=== PATIENT | female | born 1975 | race Caucasian/White ===

== ENCOUNTER 2023-01-13 08:49 | Outpatient (AMB) | payer OTHER, SELFPAY ==
--- NOTE | 2023-01-13 08:50 | MHC.OFFVIS ---
Intake Vital Signs 01/13/23 09:00 Height 5 ft 10 in Weight 287 lb 4 oz BMI 41.2 BP 142/70 H Blood Pressure Location Rt brachial Position Sitting Pulse 72 Pulse Source Pulse Oximeter Pulse Oximetry (%) 98 Oxygen Delivery Method Room Air Intake Visit Reasons: Chronic inflamatory pain/confirmed Intake Note: Pain today 10/17 Director Of Perioperative Services Required: No Accompanied by: Spouse Allergies zinc Allergy (Severe, Verified 01/13/23 08:57) Anaphylaxis latex [LATEX] Allergy (Mild, Verified 01/13/23 08:57) RASH amoxicillin [Augmentin] Allergy (Unknown, Verified 01/13/23 08:57) Unknown clavulanic acid [Augmentin] Allergy (Unknown, Verified 01/13/23 08:57) Unknown clindamycin [CLINDAMYCIN] Adverse Reaction (Severe, Verified 01/13/23 08:57) SEVERE VOMITING clarithromycin [From BIAXIN] Adverse Reaction (Mild, Verified 01/13/23 08:57) VOMITING Adhesive Tape Allergy (Unknown, Uncoded 01/13/23 08:57) Unknown Latex Gloves Allergy (Unknown, Uncoded 01/13/23 08:57) Unknown From AUGMENTIN Adverse Reaction (Intermediate, Uncoded 10/25/19 17:07) VOMITING From Augmentin Adverse Reaction (Intermediate, Uncoded 10/25/19 17:07) VOMITING HPI Chronic inflamatory pain/confirmed HPI Details Patient is a 47 years old female with complex medical history of chronic inflammatory demyelinating polyneuropathy (CIDP)and diabetic neuropathy, necrobiosis lipoidica diabeticorum, chronic pain syndrome, fibromyalgia, morbid obesity, ULISSES, degenerative joint disease of knee and left shoulders, status post recent left knee TKA, presents today for evaluation of chronic low back pain and bilateral foot neuropathy. Patient was diagnosed with CIDP at age 21 and was treated with plasmapharesis and ongoing IVIG infusions. In 2020 she developed right foot drop. Patient reports she underwent neurosurgical evaluation by Dr. Li in 2021 and was deemed non-surgical candidate. She was seen at [facility] yesterday and received left shoulder cortisone injection. She regularly sees Quality Control Industrial Engineer for diabetic neuropathy and foot care. Reports previous trigger point injections in 2021 were not helpful. Denies recent falls, injury or trauma. Back pain is axial without radiation to her lower extremities but does have discogenic components with bending forward or lifting, prolonged sitting. She lives a sedentary lifestyle due to limitations of walking capacity and overall mobility due to her conditions and chronic pain. Ambulates with slow, antalgic and ataxic gait. Pain negatively affects her daily activities, functioning, sleep, mood, social interactions and quality of life. Reports disrupted sleep and easy fatigability due to chronic widespread pain. Denies any fever, weight loss, abdominal or groin pain, bladder or bowel dysfunction or saddle anesthesia. Location Whole body pain, low back pain, feet neuropathy Duration Chronic pain for >25 years Characteristics of symptom or complaint Aching, sharp, shooting, tingling, numbness, pins and needles, stabbing Aggravating or associated factors Movement, cold weather changes, ice pack-sharp pain Relieving factors Rest, sitting, heat therapy, Oxycontin, gabapentin, baclofen Treatment TPI- made pain worse, chiropractic therapy, PT, walker [facility] Medical History (Updated 01/13/23 @ 15:15 by CHARITO Moreira) Polyneuropathy in diseases classified elsewhere Hidradenitis Hyperlipidemia Gout DJD (degenerative joint disease) Asthma PCOS (polycystic ovarian syndrome) ULISSES (obstructive sleep apnea) Subclinical hyperthyroidism Cranial nerve palsy Overlap syndrome Allergic rhinitis due to pollen History of 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 Varicose veins with pain Constipation Type 2 diabetes mellitus GERD (gastroesophageal reflux disease) Vitamin D deficiency Allergic rhinitis Surgical History (Updated 01/13/23 @ 09:46 by Alejandra Garcia) History of adjustable gastric banding History of appendectomy Social History Alcohol intake: never Patient Tobacco Use Status: Former Tobacco user Tobacco use type: Cigarette Substance Use Type: Caffiene Substance Use Frequency: Daily Review of Systems Const All systems reviewed & are unremarkable except as noted in HPI and below Physical Exam Vital Signs: Last Vital Signs Pulse 72 01/13/23 09:00 BP 142/70 H 01/13/23 09:00 Pulse Ox 98 01/13/23 09:00 Oxygen Delivery Method Room Air 01/13/23 09:00 BMI result Body Mass Index 41.2 General: Appears afebrile. No acute distress. Alert and oriented. Mood and affect appropriate. Follows and participates in conversation appropriately. Respiratory effort is unlabored. No cough. Able to transition from sit to stand with assistance of walker with seat. Ambulates with bilaterally normal heel strike and toe off. Back/Spine/Pelvis Other: Limited lumbar ROM due to pain and weakness. Antalgic gait with limping. Can flex forward to 60-65 degrees and extend to 5-10 degrees before experiencing lumbar pain, worse pain with flexion, bending forward and any movement. Demonstrates 4/5 strength of quadriceps bilaterally as well as flexion/dorsiflexion of bilateral feet against resistance. 2+ pedal pulses bilaterally. Seated straight leg rise with dorsiflexion negative bilaterally. +1 patellar right, not assessed on the left due to recent left TKA and absent achilles reflexes bilaterally. Mild foot drop on the right. Facet loading test positive bilaterally. Shukri sign negative bilaterally. No TTP in the SIJ or GTB areas bilaterally. Multiple TTP areas upper and lower extremities bilaterally. Cervical Spine: cervical muscular tenderness, pain with cervical ROM and No Cervical spine tenderness Thoracic/Lumbar Spine: thoracic and lumbar spine normal to inspection, No Thoracic/lumbar spine scar(s), Lasegue's sign negative, straight leg raise negative bilaterally, pain with thoraco-lumbar ROM, paraspinal muscle tenderness, thoraco-lumbar ROM limited, No thoracic spinal tenderness and lumbar spinal tenderness at L4 and at L5 Pelvis: no buttock tenderness Sacroiliac joints: bilaterally nontender Extrem Other: No soft tissue swelling, redness or warmth. No lesions or ulcerations. Dry patches throughout feet with skin discoloration bilaterally, healing scabs right lower leg and . +2 pedal pulses bilaterally. There is decreased sensation over the soles of the feet and toes bilaterally. No breaks in the skin. History of right first toe amputation. General: Yes capillary refill normal, Yes no clubbing, cyanosis or edema and Yes no calf tenderness Assessment & Plan Assessment & Plan (1) Chronic pain syndrome: Code(s): G89.4 - Chronic pain syndrome (2) Lumbosacral spondylosis: Code(s): M47.817 - Spondylosis without myelopathy or radiculopathy, lumbosacral region (3) Polyneuropathy in diseases classified elsewhere: Code(s): G63 - Polyneuropathy in diseases classified elsewhere (4) Lumbar degenerative disc disease: Code(s): M51.36 - Other intervertebral disc degeneration, lumbar region (5) Chronic painful diabetic neuropathy: Code(s): E11.40 - Type 2 diabetes mellitus with diabetic neuropathy, unspecified (6) Morbid obesity with BMI of 40.0-44.9, adult: Code(s): E66.01 - Morbid (severe) obesity due to excess calories; Z68.41 - Body mass index [BMI] 40.0-44.9, adult (7) Fibromyalgia: Code(s): M79.7 - Fibromyalgia Plan Discussed risks and benefits of different treatment options including topical 8% capsaicin application, peripheral nerve stimulation, RFA and spinal cord stimulation. Patient presents with chronic low back pain, widespread body pain, fibromyalgia, and polyneuropathy. Medical release requests sent to [facility] and [facility] for previous spine imaging, injections and neurosurgical evaluation in [address] Li. Will consider diagnostic lumbar medial branch blocks for potential Sprint PNS trial after old records and imaging review. I have informed patient that our office currently does not offer opiod prescribing program. Will try to arrange topical 8% capsaicin application for bilateral foot pain as the next step once we have confirmed availability. For fibromyalgia related symptoms, recommend to increase daily physical activity such as walking, gentle stretching exercises, and aerobic exercise as tolerated, sleep hygiene, adequate hydration, well balance diet and weight optimization, consider plant based diet or Mediterranean diet, CBT (Cognitive Behavioral Therapy) for sleep and coping with fibromyalgia by Psychotherapist. Continue gabapentin. Kelin Hannah., Consuelo Geller, Mandi Eubanks, Maame Zamora, Lazara Mayer, & ?Kelin Desai (2017). Effectiveness of Therapeutic Exercise in Fibromyalgia Syndrome: A Systematic Review and [place]-Analysis of Randomized Clinical Trials. [employer], 2017, [id number]. [email or web address] All questions and concerns have been answered and the patient agreed with the plan. Follow up as needed. Coding Level of Care Code New Pt Level 4 (07854) Diagnoses Chronic pain syndrome G89.4 Lumbosacral spondylosis M47.817 Polyneuropathy in diseases classified elsewhere G63 Lumbar degenerative disc disease M51.36 Chronic painful diabetic neuropathy E11.40 Morbid obesity with BMI of 40.0-44.9, adult E66.01; Z68.41 Fibromyalgia M79.7
[2023-01-13 09:00] VITALS: BP 142/70; PULSE 72; O2SAT 98; BMI 41.2
== END 2023-01-13 09:52 | disposition home or self-care (01) ==
PROVIDERS: PCP Internal Medicine; Referring Provider Internal Medicine; Visit Provider Nurse Practitioner Family
DX: G89.4 Chronic pain syndrome (principal); M47.817 Spondylosis without myelopathy or radiculopathy, lumbosacral region; G63 Polyneuropathy in diseases classified elsewhere; M51.36 Other intervertebral disc degeneration, lumbar region; E11.40 Type 2 diabetes mellitus with diabetic neuropathy, unspecified; E66.01 Morbid (severe) obesity due to excess calories; Z68.41 Body mass index [BMI] 40.0-44.9, adult; M79.7 Fibromyalgia
CPT/HCPCS: 99204

== ENCOUNTER → 2023-01-13 08:49 | Outpatient (BNVA) | payer OTHER, SELFPAY | PROVIDERS: PCP Internal Medicine; Referring Provider Internal Medicine; Visit Provider Nurse Practitioner Family | DX: M47.817 Spondylosis without myelopathy or radiculopathy, lumbosacral region (principal); M51.36 Other intervertebral disc degeneration, lumbar region; M79.7 Fibromyalgia; G63 Polyneuropathy in diseases classified elsewhere; G89.4 Chronic pain syndrome; E11.40 Type 2 diabetes mellitus with diabetic neuropathy, unspecified; E66.01 Morbid (severe) obesity due to excess calories; Z68.41 Body mass index [BMI] 40.0-44.9, adult | CPT/HCPCS: 99202 ==

== ENCOUNTER 2023-04-01 13:39 | Outpatient (AMB) | payer OTHER, SELFPAY ==
--- NOTE | 2023-04-01 13:41 | MHC.OFFVIS ---
Intake Vital Signs 04/01/23 13:46 Height 5 ft 10 in Weight 295 lb BMI 42.3 BP 133/66 Blood Pressure Location Lt brachial Position Sitting Pulse 77 Pulse Source Pulse Oximeter Pulse Oximetry (%) 99 Oxygen Delivery Method Room Air Intake Visit Reasons: increased back pain- confirmed Intake Note: Pain today 07/17 Milk Inspector Required: No Accompanied by: Spouse Allergies zinc Allergy (Severe, Verified 04/01/23 13:47) Anaphylaxis latex [LATEX] Allergy (Mild, Verified 04/01/23 13:47) RASH amoxicillin [Augmentin] Allergy (Unknown, Verified 04/01/23 13:47) Unknown clavulanic acid [Augmentin] Allergy (Unknown, Verified 04/01/23 13:47) Unknown clindamycin [CLINDAMYCIN] Adverse Reaction (Severe, Verified 04/01/23 13:47) SEVERE VOMITING clarithromycin [From BIAXIN] Adverse Reaction (Mild, Verified 04/01/23 13:47) VOMITING Adhesive Tape Allergy (Unknown, Uncoded 01/13/23 08:57) Unknown Latex Gloves Allergy (Unknown, Uncoded 01/13/23 08:57) Unknown From AUGMENTIN Adverse Reaction (Intermediate, Uncoded 10/25/19 17:07) VOMITING From Augmentin Adverse Reaction (Intermediate, Uncoded 10/25/19 17:07) VOMITING HPI HPI Comments History of Present Illness Details Patient presents today for follow up for chronic low back pain and SCS trial discussion. Patient reports she has reviewed previously discussed procedures and pamphlets and would like to proceed with lumbar SCS trial for a longer term pain management of chronic low back pain and diabetic neuropathy. She also suffers from debilitating chronic inflammatory demyelinating polyneuropathy. Pain affects her daily functioning, mobility, sleep, mood and quality of life. Currently takes gabapentin and Oxycontin with continued symptoms. The trialed and failed therapy has been reviewed with the patient. The risks, consequences, alternatives, and benefits of various treatment options were discussed with the patient and her spouse in great detail, including conservative management, injections and procedures. Plan to proceed with the SCS trial. We will proceed with referral for psychology clearance in anticipation of SCS trial. Denies any recent cough, cold, infection, fever, any significant changes in her medical history, medications or recent hospitalizations. Patient reports she continues to work on weight loss and has decreased soda consumption to 2-3 uses/day. She reports current fasting blood sugars are 150-170 on average. She is due for A1C recheck next week at her PCP office. Patient is also awaiting for new insulin pump. PRIOR: Patient is a 47 years old female with complex medical history of chronic inflammatory demyelinating polyneuropathy (CIDP)and diabetic neuropathy, necrobiosis lipoidica diabeticorum, chronic pain syndrome, fibromyalgia, morbid obesity, ULISSES, degenerative joint disease of knee and left shoulders, status post recent left knee TKA, presents today for evaluation of chronic low back pain and bilateral foot neuropathy. Patient was diagnosed with CIDP at age 21 and was treated with plasmapharesis and ongoing IVIG infusions. In 2020 she developed right foot drop. Patient reports she underwent neurosurgical evaluation by Dr. Li in 2021 and was deemed non-surgical candidate. She was seen at [facility] yesterday and received left shoulder cortisone injection. She regularly sees Core Driller for diabetic neuropathy and foot care. Reports previous trigger point injections in 2021 were not helpful. Denies recent falls, injury or trauma. Back pain is axial without radiation to her lower extremities but does have discogenic components with bending forward or lifting, prolonged sitting. She lives a sedentary lifestyle due to limitations of walking capacity and overall mobility due to her conditions and chronic pain. Ambulates with slow, antalgic and ataxic gait. Pain negatively affects her daily activities, functioning, sleep, mood, social interactions and quality of life. Reports disrupted sleep and easy fatigability due to chronic widespread pain. Denies any fever, weight loss, abdominal or groin pain, bladder or bowel dysfunction or saddle anesthesia. Location Whole body pain, low back pain, feet neuropathy Duration Chronic pain for >25 years Characteristics of symptom or complaint Aching, sharp, shooting, tingling, numbness, pins and needles, stabbing Aggravating or associated factors Movement, cold weather changes, ice pack-sharp pain Relieving factors Rest, sitting, heat therapy, Oxycontin, gabapentin, baclofen Treatment TPI- made pain worse, chiropractic therapy, PT, walker [facility] Medical History (Updated 01/13/23 @ 15:15 by CHARITO Moreira) Polyneuropathy in diseases classified elsewhere Hidradenitis Hyperlipidemia Gout DJD (degenerative joint disease) Asthma PCOS (polycystic ovarian syndrome) ULISSES (obstructive sleep apnea) Subclinical hyperthyroidism Cranial nerve palsy Overlap syndrome Allergic rhinitis due to pollen Varicose veins with pain Constipation Type 2 diabetes mellitus GERD (gastroesophageal reflux disease) Vitamin D deficiency Allergic rhinitis Surgical History (Updated 01/13/23 @ 09:46 by Alejandra Garcia) History of 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 History of adjustable gastric banding History of appendectomy Social History Alcohol intake: never Patient Tobacco Use Status: Former Tobacco user Tobacco use type: Cigarette Substance Use Type: Caffiene Review of Systems Const All systems reviewed & are unremarkable except as noted in HPI and below Physical Exam Vital Signs: Last Vital Signs Pulse 77 04/01/23 13:46 BP 133/66 04/01/23 13:46 Pulse Ox 99 04/01/23 13:46 Oxygen Delivery Method Room Air 04/01/23 13:46 BMI result Body Mass Index 42.3 General: Appears afebrile. No acute distress. Alert and oriented. Mood and affect appropriate. Follows and participates in conversation appropriately. Respiratory effort is unlabored. No cough. Able to transition from sit to stand with assistance of walker with seat. Ambulates with bilaterally normal heel strike and toe off. Back/Spine/Pelvis Cervical Spine: cervical muscular tenderness, pain with cervical ROM and No Cervical spine tenderness Thoracic/Lumbar Spine: thoracic and lumbar spine normal to inspection, No Thoracic/lumbar spine scar(s), Lasegue's sign negative, straight leg raise negative bilaterally, pain with thoraco-lumbar ROM, paraspinal muscle tenderness, thoraco-lumbar ROM limited, No thoracic spinal tenderness and lumbar spinal tenderness at L4 and at L5 Results Reviewed Results Reviewed: Assessment & Plan Assessment & Plan (1) Chronic painful diabetic neuropathy: Code(s): E11.40 - Type 2 diabetes mellitus with diabetic neuropathy, unspecified (2) Lumbar degenerative disc disease: Code(s): M51.36 - Other intervertebral disc degeneration, lumbar region (3) Lumbosacral spondylosis: Code(s): M47.817 - Spondylosis without myelopathy or radiculopathy, lumbosacral region (4) Chronic pain syndrome: Code(s): G89.4 - Chronic pain syndrome (5) Polyneuropathy in diseases classified elsewhere: Code(s): G63 - Polyneuropathy in diseases classified elsewhere Plan Placed referral for psychology clearance in anticipation of SCS trial. Patient and family are aware patient will receive call from provider at [facility]. Extensive discussion regarding the risks and benefits of SCS trial and implant procedures. Will proceed with Nevro HFX trial pending psychology clearance and new A1C recheck. All questions were answered to patient satisfaction. Follow up after behavioral evaluation and sooner as needed. Coding Level of Care Code Est Pt Level 3 (30782) Diagnoses Chronic painful diabetic neuropathy E11.40 Lumbar degenerative disc disease M51.36 Lumbosacral spondylosis M47.817 Chronic pain syndrome G89.4 Polyneuropathy in diseases classified elsewhere G63
[2023-04-01 13:46] VITALS: BP 133/66; PULSE 77; O2SAT 99; BMI 42.3
== END 2023-04-01 14:07 | disposition home or self-care (01) ==
PROVIDERS: PCP Internal Medicine; Visit Provider Nurse Practitioner Family
DX: E11.40 Type 2 diabetes mellitus with diabetic neuropathy, unspecified (principal); M51.36 Other intervertebral disc degeneration, lumbar region; M47.817 Spondylosis without myelopathy or radiculopathy, lumbosacral region; G89.4 Chronic pain syndrome; G63 Polyneuropathy in diseases classified elsewhere
CPT/HCPCS: 99213

== ENCOUNTER → 2023-04-01 13:39 | Outpatient (BNVA) | payer OTHER, SELFPAY | PROVIDERS: PCP Internal Medicine; Visit Provider Nurse Practitioner Family | DX: E11.40 Type 2 diabetes mellitus with diabetic neuropathy, unspecified (principal); M51.36 Other intervertebral disc degeneration, lumbar region; M47.817 Spondylosis without myelopathy or radiculopathy, lumbosacral region; G63 Polyneuropathy in diseases classified elsewhere; G89.4 Chronic pain syndrome | CPT/HCPCS: 99212 ==

== ENCOUNTER 2024-08-24 11:38 | Outpatient (AMB) | payer OTHER, SELFPAY ==
--- NOTE | 2024-08-24 11:40 | A.OFFVIS_ITS ---
Vital Signs 3 08/24/24 11:44 Height 5 ft 10 in Weight 303 lb BMI 43.5 BP 145/71 H Blood Pressure Location Lt brachial Position Sitting Pulse 75 Pulse Source Pulse Oximeter Pulse Oximetry (%) 96 Oxygen Delivery Method Room Air Intake Visit Reasons: Fu patient req/leyla 04/01/23 Intake Note: Pain today 5/10 Personal Lines Account Executive Required: No Accompanied by: Spouse Allergies zinc Allergy (Severe, Verified 08/24/24 11:44) Anaphylaxis latex (LATEX) Allergy (Mild, Verified 08/24/24 11:44) RASH amoxicillin (Augmentin) Allergy (Unknown, Verified 08/24/24 11:44) Unknown clavulanic acid (Augmentin) Allergy (Unknown, Verified 08/24/24 11:44) Unknown clindamycin (CLINDAMYCIN) Adverse Reaction (Severe, Verified 08/24/24 11:44) SEVERE VOMITING clarithromycin (From BIAXIN) Adverse Reaction (Mild, Verified 08/24/24 11:44) VOMITING Adhesive Tape Allergy (Unknown, Uncoded 01/13/23 08:57) Unknown Latex Gloves Allergy (Unknown, Uncoded 01/13/23 08:57) Unknown From AUGMENTIN Adverse Reaction (Intermediate, Uncoded 10/25/19 17:07) VOMITING From Augmentin Adverse Reaction (Intermediate, Uncoded 10/25/19 17:07) VOMITING HPI Comments Details: The patient is a 49-year-old female presenting for management of chronic low back pain and re-evaluation for spinal cord stimulator trial. The chronic low back pain has been present for over 25 years, with pain radiating to lower extremities, neck and shoulder blades and exacerbated by movements, walking, bending and twisting. Previous imaging showed mild degenerative changes in the thoracic and lumbar spine with facet arthropathy. She is scheduled to undergo CT scan of neck next week. The patient has a history of chronic inflammatory demyelinating polyneuropathy (CIDP) for which she receives intravenous immunoglobulin (IVIG) treatments every three weeks for five days via portcath through [facility]. She also has a gastric band in situ for obesity management, although her weight has been fluctuating by 10 pounds. Current BMI 43.5. The patient has undergone bilateral knee replacements, with the right knee replaced in June of this year and the left knee in November 2022. She reports no smoking or alcohol use but uses medicinal marijuana. Her diabetes mellitus management has been complicated by high A1c levels due to issues with insulin pump supplies, leading to a six-month period off the pump. The patient's A1c was last checked a couple of months ago at PCP office, and she is advised to reduce soda consumption to aid in weight loss and better glycemic control. Denies any recent cough, cold, infection, fever or any other significant changes in medical history since last office visit. PRIOR: Patient presents today for follow up for chronic low back pain and SCS trial discussion. Patient reports she has reviewed previously discussed procedures and pamphlets and would like to proceed with lumbar SCS trial for a longer term pain management of chronic low back pain and diabetic neuropathy. She also suffers from debilitating chronic inflammatory demyelinating polyneuropathy. Pain affects her daily functioning, mobility, sleep, mood and quality of life. Currently takes gabapentin and Oxycontin with continued symptoms. The trialed and failed therapy has been reviewed with the patient. The risks, consequences, alternatives, and benefits of various treatment options were discussed with the patient and her spouse in great detail, including conservative management, injections and procedures. Plan to proceed with the SCS trial. We will proceed with referral for psychology clearance in anticipation of SCS trial. Denies any recent cough, cold, infection, fever, any significant changes in her medical history, medications or recent hospitalizations. Patient reports she continues to work on weight loss and has decreased soda consumption to 2-3 uses/day. She reports current fasting blood sugars are 150- 170 on average. She is due for A1C recheck next week at her PCP office. Patient is also awaiting for new insulin pump. PRIOR: Patient is a 47 years old female with complex medical history of chronic inflammatory demyelinating polyneuropathy (CIDP)and diabetic neuropathy, necrobiosis lipoidica diabeticorum, chronic pain syndrome, fibromyalgia, morbid obesity, ULISSES, degenerative joint disease of knee and left shoulders, status post recent left knee TKA, presents today for evaluation of chronic low back pain and bilateral foot neuropathy. Patient was diagnosed with CIDP at age 21 and was treated with plasmapharesis and ongoing IVIG infusions. In 2020 she developed right foot drop. Patient reports she underwent neurosurgical evaluation by Dr. Li in 2021 and was deemed non-surgical candidate. She was seen at [facility] yesterday and received left shoulder cortisone injection. She regularly sees Custom Shop Worker for diabetic neuropathy and foot care. Reports previous trigger point injections in 2021 were not helpful. Denies recent falls, injury or trauma. Back pain is axial without radiation to her lower extremities but does have discogenic components with bending forward or lifting, prolonged sitting. She lives a sedentary lifestyle due to limitations of walking capacity and overall mobility due to her conditions and chronic pain. Ambulates with slow, antalgic and ataxic gait. Pain negatively affects her daily activities, functioning, sleep, mood, social interactions and quality of life. Reports disrupted sleep and easy fatigability due to chronic widespread pain. Denies any fever, weight loss, abdominal or groin pain, bladder or bowel dysfunction or saddle anesthesia. Location Whole body pain, low back pain, feet neuropathy Duration Chronic pain for >25 years Characteristics of symptom or complaint Aching, sharp, shooting, tingling, numbness, pins and needles, stabbing Aggravating or associated factors Movement, cold weather changes, ice pack- sharp pain Relieving factors Rest, sitting, heat therapy, Oxycontin, gabapentin, baclofen Treatment TPI- made pain worse, chiropractic therapy, PT, walker [facility] Medical History Polyneuropathy in diseases classified elsewhere Hidradenitis Hyperlipidemia Gout DJD (degenerative joint disease) Asthma PCOS (polycystic ovarian syndrome) ULISSES (obstructive sleep apnea) Subclinical hyperthyroidism Cranial nerve palsy Overlap syndrome Allergic rhinitis due to pollen Varicose veins with pain Constipation Type 2 diabetes mellitus GERD (gastroesophageal reflux disease) Vitamin D deficiency Allergic rhinitis Surgical History History of 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 History of adjustable gastric banding History of appendectomy Social History Alcohol intake: never Patient Tobacco Use Status: Former Tobacco user Tobacco use type: Cigarette Substance Use Type: Caffiene Review of Systems Const Details: - Musculoskeletal: Reports chronic low back pain radiating to legs, neck and shoulder blades, exacerbated by movement, walking, bending and twisting - Endocrine: Reports high A1c due to insulin pump issues - General: Denies smoking and alcohol use, reports use of medicinal marijuana All systems reviewed & are unremarkable except as noted in HPI and below Physical Exam Vital Signs: Last Vital Signs Pulse 75 08/24/24 11:44 BP 145/71 H 08/24/24 11:44 Pulse Ox 96 08/24/24 11:44 Oxygen Delivery Method Room Air 08/24/24 11:44 BMI result Body Mass Index 43.5 General: Appears afebrile. Alert and oriented. Mood and affect appropriate. Follows and participates in conversation appropriately. Respiratory effort is unlabored. No cough. Able to transition from sit to stand with assistance. Ambulates with slow, antalgic gait. Uses walker with ambulation. Neck Neck: Yes normal visual inspection, Yes supple, No anterior neck swelling, Yes no JVD, No prominent supraclavicular fat pad and Yes prominent dorsocervical fat pad Chest Other: Right port-a-cath in place, accessed with dressing intact, dry, no drainage. Back/Spine/Pelvis Cervical Spine: loss of normal cervical lordosis, cervical muscular tenderness, pain with cervical ROM, cervical spasm, No Cervical spine tenderness and No step off deformity Thoracic/Lumbar Spine: thoracic and lumbar spine normal to inspection, No Thoracic/lumbar spine scar(s), Lasegue's sign negative, straight leg raise negative bilaterally, pain with thoraco-lumbar ROM, paraspinal muscle tenderness, thoraco-lumbar ROM limited, No thoracic spinal tenderness and lumbar spinal tenderness at L4 and at L5 Sacroiliac joints: bilaterally tender to palpation Results Reviewed Results Reviewed: Assessment & Plan Assessment & Plan (1) Lumbar degenerative disc disease: Code(s): M51.36 - Other intervertebral disc degeneration, lumbar region Category: Medical (2) Lumbosacral spondylosis: Code(s): M47.817 - Spondylosis without myelopathy or radiculopathy, lumbosacral region Category: Medical (3) Chronic pain syndrome: Code(s): G89.4 - Chronic pain syndrome Category: Medical (4) Polyneuropathy in diseases classified elsewhere: Code(s): G63 - Polyneuropathy in diseases classified elsewhere Category: Medical (5) Morbid obesity with BMI of 40.0-44.9, adult: Code(s): E66.01 - Morbid (severe) obesity due to excess calories; Z68.41 - Body mass index [BMI] 40.0-44.9, adult Category: Medical (6) Fibromyalgia: Code(s): M79.7 - Fibromyalgia Category: Medical Plan The patient will undergo a spinal cord stimulator trial pending successful completion of a psychological evaluation through her current Psychologist and confirmation that her A1c is below 7.5. The psychological evaluation has been resubmitted to her Psychologist. We will obtain medical release for her most recent A1c levels from her primary care provider. The patient is encouraged to reduce soda consumption to aid in weight loss and better glycemic control, which may facilitate the spinal cord stimulator trial. All questions were answered to patient satisfaction. Follow up after behavioral evaluation and sooner as neede Patient was informed and verbally consented to the use of an ambient scribe for clinic note documentation during this visit. Coding Level of Care Code Est Pt Level 3 (84118) Complex EM visit Add On G2211 Diagnoses Lumbar degenerative disc disease M51.36 Lumbosacral spondylosis M47.817 Chronic pain syndrome G89.4 Polyneuropathy in diseases classified elsewhere G63 Morbid obesity with BMI of 40.0-44.9, adult E66.01; Z68.41 Fibromyalgia M79.7
[2024-08-24 11:44] VITALS: BP 145/71; PULSE 75; O2SAT 96; BMI 43.5
--- OUTSIDE RECORDS SUMMARY | 2024-08-24 12:00 | XMS_ITS | Data Portability ---
Author Organization [place] - [facility], Allergy Address [address] [place] [id number] Care Team Providers Care Sld Educational Aide Name Role Phone CONCHIS CLARKE Primary Care Provider Assessment Encounter Date Assessment Date Assessment LastModified by Organization Details LastModified Time 09/02/2023 09/02/2023 48-year-old frantz oliveira presents for reevaluation. CT scan was reviewed with patient. She should continue to follow with her title assistant regarding thyroid nodule. This does not fully explain her swallowing difficulty. She does however have a progressive neurologic issue that could be related. I have recommended a swallow study for further evaluation and to ensure there is no aspiration. Follow-up after study for review and further planning if necessary. Otologic exam is unremarkable. Audiometric testing was obtained today showing normal hearing and tympanometry bilaterally. Tinnitus is idiopathic. Masking techniques discussed. Follow-up as needed in regards to this issue. [email or web address] Not available 09/02/2023 14:17:00 Plan of Treatment Reminders Order Date Submit Date Provider Last Modified By Organization Details Last Modified Time Details Appointments None recorded. Lab None recorded. Referral None recorded. Procedures None recorded. Surgeries None recorded. Imaging [place], modified barium swallow study 2023 024 [email or web address] [facility], [address] [facility], [place], [address], 10:40:53 Medication Orders None recorded. Patient TargetsNo targets recorded. Patient InstructionsNo instructions recorded. Reason for Referral None Reported. Results Created Date Observation Date Name Description Value Unit Range Abnormal Flag Note LastModifiedBy Organization Detail LastModifiedTime 08/10/19 24 08/09/2023 CT, neck, soft tissu e, w/ contr ast No observ ation record ed. [email or web address] [facility] [address] [facility] [address], [place], [address], 08/17/2023 12:59:37 09/05/19 audio gram No observ ation record ed. [email or web address] Not Available 08/08 09:33:37 12/06/19 24 12/06/2023 chest xr [facility] Diagno stic Imagin g Depart [address] [address] ____ Alivia t: DOMI DURAN /Age/S ex: 1975 - 48 - F Unit#: [id number] Locati on/Sta tus: JERMAIN T/PRE CLI Accoun t#: [id number] Mnvaleria ic/Ord ering Site: [facility] PDI Orderi ng Physic mariama: DAISY KASPER PA-Andreina ___ CR Barium Swallo w W Video - - 0219 Report Status :Mary d CLINIC AL HISTOR Y: DYSPHA REVA. STUDY: Modifi ed barium swallo w study COMPAR TOMMY: No releva nt priors HISTOR Y: Alivia mcintosh is a 48-yea r-old female with histor y of dyspha reva TECHNI QUE: Multip le sequen tial fluoro scopic images of the latera l neck were obtain ed for a swallo wing functi on study. Barium enhanc ed consis tencie s of puddin g, thin liquid , semi-s olid, and a 13 mm barium tablet were utiliz ed for evalua tion. Examin ation was perfor med with the speech therap ist kenan RESENDEZ GS: There is questi on of very small amount of flash laryng eal penetr ation withou t rachael aspira tion on straw sips of thin barium . There was no eviden ce for penetr ation or aspira tion of any of the other variou s consis tencie s. 13mm barium tablet was swallo wed withou t diffic ulty with prompt passag e of pill from the esopha geoffrey into the stomac h. DAP: 0.59 Gycm 2 Exam perfor med and dictat ed by: ADIS Cordova physic mariama: Baldo Person MD IMPRES EBONY: Questi on a very small amount of flash laryng eal penetr ation withou t rachael aspira tion on straw sips of thin barium , otherw ise normal swallo wing functi on. Please refer to the susan lopez speech pathol ogist report for furthe r detail s as clinic randa lopez. Dictat ing Physic mariama: Brittney PERSON MD Electr onical ly Signed by: Brittney PERSON MD Dic Date/T sania: 1246 Sign date/T sania: [address] ([facility]) [address] [place], [address], 12/06/2023 14:58:16 12/06/19 24 12/06/2023 [place], modif ied kristina m sindy ow study No observ ation record ed. [address] Diagnosit Imaging Dept [address] [place], [address], 12/06/2023 14:58:19 Result Notes None recorded. Problems Name Problem SNOMED Code Status Onset Date Resolution Date Notes Provider Name and Address Organization Details Recorded Time Chronic tonsillit is 34429334 Active 2014 Tonsillit is, chronic; Note: Date Diagnosed : 06/19/2014 12:59 PM (474.00) Not Available [facility] 4 02:19:58 Chronic disease of tonsils AND/OR adenoids 50060592 Active 2014 Tonsillit h, NOS; Note: Date Diagnosed : 06/19/2014 12:59 PM (474.8) Not Available [facility] 4 02:20:07 Respirato ry finding 191575077 Active 2021 Feeling of foreign body in throat; Note: Date Diagnosed : 07/01/2021 2:58 PM (R09.89) Not Available [facility] 4 02:20:04 Cardiovas cular finding 210459939 Active 2021 Feeling of foreign body in throat; Note: Date Diagnosed : 07/01/2021 2:58 PM (R09.89) Not Available [facility] 4 02:20:04 Oropharyn geal dysphagia 58638159 Active 2021 Dysphagia , oropharyn geal phase; Note: Date Diagnosed : 07/01/2021 2:58 PM (R13.12) Not Available [facility] 4 02:19:15 Stomatiti s 28907278 Active 2021 Oral thrush; Note: Date Diagnosed : 07/01/2021 2:58 PM (B37.0) Not Available [facility] 4 02:20:11 Candidias is of mouth 76226870 Active 2021 Oral thrush; Note: Date Diagnosed : 07/01/2021 2:58 PM (B37.0) Not Available [facility] 4 02:20:11 Bilateral earache 396966697 Active 2023 Otalgia, bilateral ; Note: Date Diagnosed : 05/11/2023 5:01 PM (H92.03) Not Available [facility] 4 02:20:10 Abnormal auditory perceptio n 08913845 Active 2023 Shanita bauer [place] - [facility] 4 13:44:37 Bilateral tinnitus 85227549801 02 Active 2023 KORY ARNOLD PA-C [address] [facility] [address], [address], [place], [address] , [facility] - [facility] 4 14:17:04 Dysphagia 01631936 Active 2023 KORY ARNOLD PA-C [address] [facility] [address], [place], [address] , [facility] 4 14:17:09 Problem Notes None recorded. Procedures Surgical History Date Name Laterality Status Provider Name and Address Organization Details Recorded Time 09/02/2023 Comp Audio with Tymps - 14179 & 31522 completed Shanita Tobin [place] - [facility] 09/02/2023 13:44:22 Imaging Results None recorded. Procedure Notes None recorded. Medical Equipment None Reported. Allergies Allergen ID Allergen Name Allergen Category Reaction Reaction Severity Criticality Documentation Date Start Date Code Code System Note Provider Name and Address Organization Details Recorded Time 28712 amoxicill in / clavulana te medicatio n other Not available Not available 06/21/2023 41174 RxNorm React ion: unkno wn, unspe cifie d;; Not Available [facility] 4 00:53:04 15214 clindamyc in hydrochlo ride medicatio n other Not available Not available 06/21/2023 52819 RxNorm React ion: unkno wn, unspe cifie d;; Not Available [facility] 4 00:53:08 87112 clarithro mycin medicatio n other Not available Not available 06/21/2023 03471 RxNorm React ion: unkno wn, unspe cifie d;; Not Available [facility] 4 00:53:12 Medications Name Sig Start Date Stop Date Status Note LastModified by Organization Details LastModified Time quetiapin e 25 mg tablet TAKE 1 TABLET BY MOUTH TWICE DAILY NEEDED active Not Available Not Available No t Available cyclobenz aprine 10 mg tablet TAKE 1 TABLET BY MOUTH THREE TIMES A DAY FOR 30 DAYS 09/01 completed Not Available Not Available Not Available ziprasido ne 80 mg capsule 07/01 completed Medicati on ID: [id number] Du ration Value: 30 Brand Name: ziprasid one HCl Send Method: E-Prescr ibed Sub s Allowed: subs OK Speci al Instruct ion: TK 1 C PO Q NIGHT WITH FOOD. TAKE WITH GEODON 40 MG CAPSULE Medicati onGeneri cName: ziprasid one HCl Not Available Not Available Not Available clotrimaz ole 10 mg bree 1 bree 07/01 completed Medicati on ID: [id number] D uration Value: 7 Prescri bed By Name: Nathen oviedo M.D. Bra nd Name: clotrima zole Sen d Method: E-Prescr ibed Sub s Allowed: subs OK Medic ationGen ericName : clotrima zole Not Available Not Available Not Available buspirone 5 mg tablet 05/10 completed Medicati on ID: [id number] B rand Name: buspiron e Send Method: E-Prescr ibed Sub s Allowed: subs OK Medic ationGen ericName : buspiron e Not Available Not Available Not Available clonidine HCl 0.1 mg tablet 05/10 completed Medicati on ID: [id number] B rand Name: clonidin e HCl Send Method: E-Prescr ibed Sub s Allowed: subs OK Medic ationGen ericName : clonidin e HCl Not Available Not Available Not Available lamotrigi ne 200 mg tablet TAKE 1 TABLET BY MOUTH TWICE DAILY active Not Available Not Available No t Available quetiapin e 300 mg tablet TAKE 1 TABLET BY MOUTH AT BEDTIME active Not Available Not Available No t Available trazodone 50 mg tablet 09/01 completed Medicati on ID: [id number] B rand Name: trazodon e Send Method: E-Prescr ibed Sub s Allowed: subs OK Medic ationGen ericName : trazodon e Medica tion ID: [id number] B rand Name: trazodon e Send Method: E-Prescr ibed Sub s Allowed: subs OK Medic ationGen ericName : trazodon e Not Available Not Available Not Available cetirizin e 10 mg tablet TAKE 1 TABLET BY MOUTH EVERY DAY active Not Available Not Available No t Available miconazol e nitrate 2 % topical cream APPLY TOPICALL Y TO THE AFFECTED AREA TWICE DAILY FOR 2 WEEKS 09/01 completed Not Available Not Available Not Available hydrocodo ne 5 mg-acetam inophen 325 mg tablet TAKE 1 TABLET BY MOUTH TWICE DAILY NEEDED FOR PAIN active Not Available Not Available No t Available senna 8.6 mg tablet TAKE 1 TABLET BY MOUTH DAILY 09/01 completed Not Available Not Available Not Available minocycli ne 100 mg capsule TAKE 1 CAPSULE BY MOUTH TWICE DAILY 09/01 completed Not Available Not Available Not Available meloxicam 15 mg tablet 05/10 completed Medicati on ID: [id number] B rand Name: meloxica m Send Method: E-Prescr ibed Sub s Allowed: subs OK Medic ationGen ericName : meloxica m Not Available Not Available Not Available ondansetr on HCl 4 mg tablet TAKE 1 TABLET BY MOUTH AT BEDTIME NEEDED FOR NAUSEA 09/01 completed Not Available Not Available Not Available rizatript an 10 mg tablet 05/10 completed Medicati on ID: [id number] B rand Name: rizatrip valladares Send Method: E-Prescr ibed Sub s Allowed: subs OK Medic ationGen ericName : rizatrip valladares Not Available Not Available Not Available quetiapin e 200 mg tablet TAKE 1 TABLET BY MOUTH AT BEDTIME 09/01 completed Not Available Not Available Not Available clonazepa m 1 mg tablet 05/10 completed Medicati on ID: [id number] B rand Name: clonazep am Send Method: E-Prescr ibed Sub s Allowed: subs OK Medic ationGen ericName : clonazep am Not Available Not Available Not Available lithium carbonate ER 300 mg tablet,ex tended release TAKE 1 TABLET BY MOUTH DAILY active Not Available Not Available No t Available azathiopr ine 50 mg tablet TAKE 2 TABLETS BY MOUTH DAILY active Not Available Not Available No t Available allopurin ol 100 mg tablet 07/01 completed Medicati on ID: [id number] Du ration Value: 90 Brand Name: allopuri nol Send Method: E-Prescr ibed Sub s Allowed: subs OK Speci al Instruct ion: TK 1 T PO BID Medi cationGe nericNam e: allopuri nol Not Available Not Available Not Available sulfameth oxazole 800 mg-trimet hoprim 160 mg tablet TAKE 1 TABLET BY MOUTH TWICE DAILY FOR 7 DAYS 09/01 completed Not Available Not Available Not Available omeprazol e 40 mg capsule,d elayed release TAKE 1 CAPSULE BY MOUTH TWICE DAILY active Not Available Not Available No t Available quetiapin e 100 mg tablet TAKE 1 TABLET BY MOUTH EVERY DAY NEEDED 09/01 completed Not Available Not Available Not Available lithium carbonate ER 450 mg tablet,ex tended release TAKE 1 TABLET BY MOUTH AT BEDTIME active Not Available Not Available No t Available lidocaine -prilocai ne 2.5 %-2.5 % topical cream APPLY TO BOTH CLEAN FEET 15-30 MINUTES PRIOR TO QUTENZA PATCH ON 02/08/2309/01 completed Not Available Not Available Not Available lamotrigi ne 25 mg tablet 09/01 completed Medicati on ID: [id number] B rand Name: lamotrig ine Send Method: E-Prescr ibed Sub s Allowed: subs OK Medic ationGen ericName : lamotrig ine Medi cation ID: [id number] B rand Name: lamotrig ine Send Method: E-Prescr ibed Sub s Allowed: subs OK Medic ationGen ericName : lamotrig ine Not Available Not Available Not Available mycopheno late mofetil 500 mg tablet 05/10 completed Medicati on ID: [id number] B rand Name: mycophen olate mofetil Send Method: E-Prescr ibed Sub s Allowed: subs OK Medic ationGen ericName : mycophen olate mofetil Not Available Not Available Not Available meloxicam 7.5 mg tablet TAKE 1 TABLET BY MOUTH TWICE DAILY 09/01 completed Not Available Not Available Not Available hydromorp lito 2 mg tablet TAKE 1 TO 2 TABLETS BY MOUTH EVERY 6 HOURS NEEDED FOR SEVERE PAIN. DO NOT DRIVE WHILE TAKING THIS MEDICATI ON 09/01 completed Not Available Not Available Not Available aspirin 325 mg tablet,de layed release TAKE 1 TABLET BY MOUTH TWO TIMES A DAY 09/01 completed Not Available Not Available Not Available gabapenti n 800 mg tablet TAKE 1 TABLET BY MOUTH TWICE DAILY active Not Available Not Available No t Available trazodone 100 mg tablet TAKE 1 TO 2 TABLETS BY MOUTH EVERY NIGHT NEEDED 09/01 completed Not Available Not Available Not Available baclofen 10 mg tablet TAKE 1 TABLET BY MOUTH TWICE DAILY NEEDED FOR BACK SPASMS active Not Available Not Available No t Available cephalexi n 500 mg capsule TAKE 1 CAPSULE BY MOUTH FOUR TIMES DAILY FOR 10 DAYS 09/01 completed Not Available Not Available Not Available trazodone 150 mg tablet TAKE 1 TABLET BY MOUTH EVERY NIGHT NEEDED 09/01 completed Not Available Not Available Not Available neomycin- polymyxin -dexameth 3.5 mg/mL-10, 000 unit/mL-0 .1% eye drops 09/01 completed Medicati on ID: [id number] B rand Name: neomycin -polymyx in B-dexame th Send Method: E-Prescr ibed Sub s Allowed: subs OK Medic ationGen ericName : neomycin -polymyx in B-dexame th Medic ation ID: [id number] B rand Name: neomycin -polymyx in B-dexame th Send Method: E-Prescr ibed Sub s Allowed: subs OK Medic ationGen ericName : neomycin -polymyx in B-dexame th Not Available Not Available Not Available buspirone 10 mg tablet TAKE 2 TABLETS BY MOUTH TWICE DAILY 09/01 completed Not Available Not Available Not Available triamcino lone acetonide 55 mcg nasal spray aerosol 05/10 completed Medicati on ID: [id number] B rand Name: triamcin olone acetonid e Send Method: E-Prescr ibed Sub s Allowed: subs OK Speci al Instruct ion: USE 2 SPRAYS IN EACH NOSTRIL DAILY Me dication GenericN estrada: triamcin olone acetonid e Not Available Not Available Not Available levothyro xine 150 mcg tablet 07/01 completed Medicati on ID: [id number] Du ration Value: 30 Brand Name: levothyr oxine Se nd Method: E-Prescr ibed Sub s Allowed: subs OK Speci al Instruct ion: TK 1 T PO D Medica tionGene ricName: levothyr oxine Not Available Not Available Not Available vancomyci n 250 mg capsule active Not Available Not Available Not Available Advair Diskus 250 mcg-50 mcg/dose powder for inhalatio n 07/01 completed Medicati on ID: [id number] Du ration Value: 30 Brand Name: Advair Diskus S end Method: E-Prescr ibed Sub s Allowed: subs OK Speci al Instruct ion: INHALE 1 PUFF PO BID. RINSE MOUTH AFTER USE. Med icationG enericNa me: Advair Diskus Not Available Not Available Not Available triamcino lone acetonide 0.025 % topical ointment APPLY TO AFFECTED AREA TWICE DAILY DECREASE SYMPTOMS IMPROVE active Not Available Not Available No t Available docusate sodium 100 mg capsule TAKE 1 CAPSULE BY MOUTH TWICE DAILY START AFTER SURGERY 09/01 completed Not Available Not Available Not Available omeprazol e 20 mg capsule,d elayed release 09/01 completed Medicati on ID: [id number] B rand Name: omeprazo le Send Method: E-Prescr ibed Sub s Allowed: subs OK Medic ationGen ericName : omeprazo le Medic ation ID: [id number] B rand Name: omeprazo le Send Method: E-Prescr ibed Sub s Allowed: subs OK Medic ationGen ericName : omeprazo le Not Available Not Available Not Available folic acid 1 mg tablet 07/01 completed Medicati on ID: [id number] Du ration Value: 30 Brand Name: folic acid Sen d Method: E-Prescr ibed Sub s Allowed: subs OK Speci al Instruct ion: TK 4 TS PO QD Medic ationGen ericName : folic acid Not Available Not Available Not Available monteluka st 10 mg tablet TAKE 1 TABLET BY MOUTH AT BEDTIME active Not Available Not Available No t Available hydroxyzi ne HCl 25 mg tablet TAKE 1 TO 2 TABLETS BY MOUTH EVERY NIGHT NEEDED active Not Available Not Available No t Available ammonium lactate 12 % topical cream APPLY TOPICALL Y TO FEET TWICE DAILY active Not Available Not Available No t Available lisinopri l 5 mg tablet TAKE 1 TABLET BY MOUTH DAILY active Not Available Not Available No t Available mupirocin 2 % topical ointment APPLY 1 APPLICAT ION TO THE SKIN WOUND DAILY 09/01 completed Not Available Not Available Not Available ziprasido ne 40 mg capsule 07/01 completed Medicati on ID: [id number] Du ration Value: 30 Brand Name: ziprasid one HCl Send Method: E-Prescr ibed Sub s Allowed: subs OK Speci al Instruct ion: TK 1 C PO BID Medi cationGe nericNam e: ziprasid one HCl Not Available Not Available Not Available sodium chloride 0.9 % intraveno us solution 09/01 completed Not Available Not Available Not Available ergocalci ferol (vitamin D2) 1,250 mcg (50,000 unit) capsule TAKE 1 CAPSULE BY MOUTH 1 TIME A WEEK 09/01 completed Not Available Not Available Not Available Novolog U-100 Insulin aspart 100 unit/mL subcutane ous solution ADMINIST ER 182 UNITS UNDER THE SKIN DAILY DIRECTED . INSULIN PUMP active Not Available Not Available No t Available azelastin e 137 mcg (0.1 %) nasal spray USE 2 SPRAYS IN EACH NOSTRIL TWICE DAILY active Not Available Not Available No t Available epinephri ne 0.3 mg/0.3 mL injection , auto-inje ctor USE DIRECTED FOR ANAPHYLA XIS. CALL 911 AFTER USE active Not Available Not Available No t Available trihexyph enidyl 2 mg tablet 05/10 completed Medicati on ID: [id number] B rand Name: trihexyp henidyl Send Method: E-Prescr ibed Sub s Allowed: subs OK Medic ationGen ericName : trihexyp henidyl Not Available Not Available Not Available hydrocort isone 2.5 % topical ointment active Not Available Not Available Not Available ketoconaz ole 2 % topical cream APPLY TO THE AFFECTED AREA TWICE DAILY active Not Available Not Available No t Available finasteri de 5 mg tablet 09/01 completed Not Available Not Available Not Available Ventolin HFA 90 mcg/actua tion aerosol inhaler INHALE 2 PUFFS INTO THE LUNGS FOUR TIMES DAILY NEEDED FOR WHEEZING OR SHORTNES S OF BREATH active Not Available Not Available No t Available buspirone 15 mg tablet TAKE 1 TABLET BY MOUTH THREE TIMES DAILY active Not Available Not Available No t Available Novolog FlexPen U-100 Insulin aspart 100 unit/mL (3 mL) subcutane ous INJECT 3 TIMES A DAY WITH MEALS PER SLIDING SCALE 09/01 completed Not Available Not Available Not Available Premarin 0.3 mg tablet TAKE 1 TABLET BY MOUTH AT BEDTIME active Not Available Not Available No t Available Spiriva with HandiHale r 18 mcg and inhalatio n capsules 07/01 completed Medicati on ID: [id number] Du ration Value: 30 Brand Name: Spiriva with HandiHal er Send Method: E-Prescr ibed Sub s Allowed: subs OK Speci al Instruct ion: INHALE CONTENTS OF 1 C PO VIA HANDIHAL ER ONCE D Medica tionGene ricName: Spiriva with HandiHal er Not Available Not Available Not Available ramelteon 8 mg tablet TAKE 1 TABLET BY MOUTH EVERY NIGHT AT BEDTIME NEEDED active Not Available Not Available No t Available Lyrica 150 mg capsule 07/01 completed Medicati on ID: [id number] Du ration Value: 30 Brand Name: Lyrica S end Method: E-Prescr ibed Sub s Allowed: subs OK Speci al Instruct ion: TK 1 C PO TID Medi cationGe nericNam e: Lyrica Not Available Not Available Not Available atomoxeti ne 100 mg capsule TAKE 1 CAPSULE BY MOUTH EVERY DAY 09/01 completed Not Available Not Available Not Available Advair HFA 230 mcg-21 mcg/actua tion aerosol inhaler INHALE 2 PUFFS INTO THE LUNGS TWICE DAILY. RINSE MOUTH AFTER EACH DOSE. active Not Available Not Available No t Available quetiapin e 50 mg tablet 07/01 completed Medicati on ID: [id number] Du ration Value: 30 Brand Name: quetiapi ne Send Method: E-Prescr ibed Sub s Allowed: subs OK Speci al Instruct ion: TAKE 1 TABLET BY MOUTH AT BEDTIME NEEDED M edicatio nGeneric Name: quetiapi ne Not Available Not Available Not Available quetiapin e 400 mg tablet TAKE 1 TABLET BY MOUTH AT BEDTIME active Not Available Not Available No t Available BD PosiFlush Normal Saline 0.9 % injection syringe 09/01 completed Not Available Not Available Not Available carisopro dol 250 mg tablet 07/01 completed Medicati on ID: [id number] Du ration Value: 30 Brand Name: carisopr odol Sen d Method: E-Prescr ibed Sub s Allowed: subs OK Speci al Instruct ion: TK 1 T PO TID BEFORE MEALS AND HS PRF MUSCLE SPASM Me dication GenericN estrada: carisopr odol Not Available Not Available Not Available Vyvanse 60 mg capsule TAKE 1 CAPSULE BY MOUTH DAILY active Not Available Not Available No t Available diclofena c 1 % topical gel APPLY 1 GRAM TOPICALL Y 4 TIMES A DAY NEEDED 09/01 completed Not Available Not Available Not Available Glumetza 1,000 mg tablet,ex tended release 07/01 completed Medicati on ID: [id number] Du ration Value: 30 Brand Name: Glumetza Send Method: E-Prescr ibed Sub s Allowed: subs OK Speci al Instruct ion: TK 1 T PO QD WITH BREAKFAS T Medica tionGene ricName: Glumetza Not Available Not Available Not Available cholecalc iferol (vitamin D3) 50 mcg (2,000 unit) capsule TAKE 1 CAPSULE BY MOUTH EVERY DAY active Not Available Not Available No t Available Heparin Lock Flush (Porcine) (PF) 10 unit/mL intraveno us syringe active Not Available Not Available Not Available ProChambe r USE WITH INHALERS 09/01 completed Not Available Not Available Not Available Aerochamb er Plus Flow-Vu,L arge Mask USE WITH INHALERS 09/01 completed Not Available Not Available Not Available OxyContin 20 mg tablet,cr ush resistant ,extended release TAKE 1 TABLET BY MOUTH TWICE DAILY active Not Available Not Available No t Available Tresiba FlexTouch U-200 insulin 200 unit/mL (3 mL) subcutane ous pen INJECT 50 UNITS INTO THE SKIN DAILY active Not Available Not Available No t Available naloxone 4 mg/actuat ion nasal spray USE 4MG NASALLY NEEDED FOR ACUTE MENTAL STATUS CHANGE OR DRUG OVERDOSE 09/01 completed Not Available Not Available Not Available Vraylar 6 mg capsule 05/10 completed Medicati on ID: [id number] B rand Name: Vraylar Send Method: E-Prescr ibed Sub s Allowed: subs OK Medic ationGen ericName : Vraylar Not Available Not Available Not Available Gammaplex 10 % intraveno us solution active Not Available Not Available Not Available Trelegy Ellipta 100 mcg-62.5 mcg-25 mcg powder for inhalatio n 05/10 completed Medicati on ID: [id number] B rand Name: Trelegy Ellipta Send Method: E-Prescr ibed Sub s Allowed: subs OK Medic ationGen ericName : Trelegy Ellipta Not Available Not Available Not Available Aimovig Autoinjec tor 70 mg/mL subcutane ous auto-inje ctor 09/01 completed Medicati on ID: [id number] B rand Name: Aimovig Autoinje ctor Sen d Method: E-Prescr ibed Sub s Allowed: subs OK Medic ationGen ericName : Aimovig Autoinje ctor Med ication ID: [id number] B rand Name: Aimovig Autoinje ctor Sen d Method: E-Prescr ibed Sub s Allowed: subs OK Medic ationGen ericName : Aimovig Autoinje ctor Not Available Not Available Not Available Humira(CF ) Pen 80 mg/0.8 mL subcutane ous kit INJECT 1 PEN SUBCUTAN EOUSLY EVERY OTHER WEEK active Not Available Not Available No t Available Aimovig Autoinjec tor 140 mg/mL subcutane ous auto-inje ctor active Not Available Not Available Not Available Ubrelvy 100 mg tablet TAKE 1 TABLET BY MOUTH DAILY NEEDED FOR MIGRAINE HEADACHE . MAY REPEAT DOSE IN 2 HOURS. DO NOT EXCEED 2 DOSES IN 24 HOURS active Not Available Not Available No t Available Caplyta 42 mg capsule TAKE 1 CAPSULE BY MOUTH EVERY NIGHT active Not Available Not Available No t Available Gvoke HypoPen 2-Pack 0.5 mg/0.1 mL subcutane ous auto-inje ctor INJECT 1 DOSE INTO THE SKIN NEEDED active Not Available Not Available No t Available Vitals None Recorded Social History None recorded. Functional Status None recorded. Mental Status None recorded. Family History Nothing Reported. Medical History No medical history recorded. Gynecological HistoryNo gynecological history recorded. Obstetrics History GPAL:G 0 P 0 0 0 0 Past Encounters Encounter ID Performer Location Encounter Start Date Encounter Closed Date Diagnosis/Indication Diagnosis SNOMED-CT Code Diagnosis ICD10 Code Diagnosis Note [id number] KORY ARNOLD PA-C [facility] [address] [address] 09/02/2023 13:10:52 09/02/2023 14:04:21 Abnormal auditory perception 18423035 H93.299 Audiologic al evaluation results: Right ear: Normal hearing with excellent word recognitio n. Left ear: Normal hearing with excellent word recognitio n. Tympanomet ry: Right Ear:Type A Left Ear:Type A Bilateral tinnitus 72021 21427 102 H93.13 Dysphagia 69908208 R13.1 0 Health Concerns Section Related Observation LastModified by Organization Detai ls LastModified Time None Recorded Concern Status LastModified by Organization Details LastModified Time None Recorded Advance Directives Directive None Recorded Payers Insurance Date Sequence Insurance Name Policy Number Policy Pagan Covered Member ID Pagan Member ID Guarantor Name 09/02/2023 1 [facility] - DOS ON OR AFTER 2022 - ONE CARE (MEDICARE REPLACEMENT/ADV ANTAGE - HMO) Kiah Ortiz [id number] Kiah Ortiz Notes Date Note Type Note Provider Name and Address Organization Details Recorded Time 09/02/2023 text/html 48-year-old frantz oliveira with complex medical problems presents for reevaluation. Previously was evaluated for difficulty swallowing. She feels as though there is something stuck in her throat preventing food from going past a certain spot. She had a CT scan of the neck. CT scan did show a thyroid nodule that is 3 cm with some airway impingement. Unclear if this is the cause of her dysphagia. She is being followed by an title assistant regularly for this issue. Has serial ultrasounds every 6 months. Biopsy cannot be obtained as it is calcified. 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 She was also complaining of bilateral tinnitus which comes and goes. No significant sensation of hearing loss. NATHEN CHAPMAN MD [address] [place] [address], [place], [phone], [facility] - [facility] 09/02/2023 16:16:19 OBGyn Episode No OBEpisode recorded.
--- OUTSIDE RECORDS SUMMARY | 2024-08-24 12:00 | XMS_ITS | Encounter Summary ---
Author Organization [facility] Address [address] [place] [address] Care Team Providers Care Electronics Instructor Name Role Phone Elizabeth Thrasher MD Primary Care Provider [phone] Reason for Visit * Reason Onset Date Comments PRIOR AUTORIZATION NOVOLOG 07/30/2024 Encounter Details Date Type Department Care Team (Late st Contact Info) Description 07/30/2024 Telephone [facility] [id number] [place] [phone] Peggy Garcia MD [address] [place] [address] PRIOR AUTORIZATION NOVOLOG Social History Tobacco Use Types Packs/Day Years Used Date Smoking Tobacco: Former Cigarettes Q uit: 10/08/2022 Smokeless Tobacco: Never Alcohol Use Standard Drinks/Week Comments No 0 (1 standard drink = 0.6 oz pur e alcohol) Housing Instability Answer Date Recorde d Are you worried that in the next 2 months you may not have stable housing? Yes 01/22/2024 Food Access & Nutrition Answer Date Rec orded Do you have access to a vari ety of food including fruits and vegetables? Yes 01/22/2024 Access to Healthcare Answer Date Record ed Within the last 3 months, giovanni cerda many times did you visit the emergency department for your medical care? 1 01/22/2024 Health Literacy Answer Date Recorded How often do you need to hav e someone help you when you read instructions, pamphlets, or other written material from your doctor or pharmacy? Never 01/22/2024 Caregiver: How often do you need to have someone help you when you read instructions, pamphlets, or other written material from your doctor or pharmacy? Not on file 01/22/2024 Financial Risk Answer Date Recorded How hard is it for you to pa y for the very basics like food, housing, medical care, and air conditioning / heating? Somewhat hard 01/22/2024 Transportation Answer Date Recorded Has the lack of transportati on kept you from meetings, work, or from getting things needed for daily living? No Has the lack of transportati on kept you from medical appointments or from getting medications? No 01/22/2024 Social Isolation Answer Date Recorded How often do you feel lonely or isolated from th ose around you? Often 01/22/2024 Food Risk Answer Date Recorded Within the past 12 months we worried whether our food would run out before we got money to buy more. Sometimes true 024 Within the past 12 months th e food we bought just didn't last and we didn't have money to get more. Sometimes true 01/22/2024 Dependent Care Answer Date Recorded Do you need help finding or paying for care for your loved ones. For example, child development teacher or elderly care for an older adult? No 01/22/2024 Education Answer Date Recorded Do you think completing more education or training, like finishing a GED, going to college, or learning a trade, would be helpful for you? No 01/22/2024 Employment and Income Answer Date Recor ded During the last four weeks, have you been actively looking for work? No 01/22/2024 Living Situation Answer Date Recorded What is your living situation? 1 03/24/2023 Interpersonal Safety Answer Date Record ed Physical Abuse 01/22/2024 Verbal Abuse 01/22/2024 Comments Unknown Sex and Gender Information Value Date Recorded Sex Assigned at Female 02/18/2024 8:51 PM EST Legal Sex Female 5:23 AM EST Gender Identity Female 02/18/2024 8:51 PM EST Sexual Orientation Not on file documented as of this encounter Functional Status * Are you deaf or do you have serious difficulty hearing? Answer Date of Assessment Author No 02/18/2024 9:37 PM Daryn Browning RN * Are you blind or do you have serious difficulty seeing, even when wearing glasses? Answer Date of Assessment Author No 02/18/2024 9:37 PM Daryn Browning RN * Do you have serious difficulty walking or climbing stairs? Answer Date of Assessment Author Yes 02/18/2024 9:37 PM Daryn Browning RN * Do you have serious difficulty dressing or bathing? Answer Date of Assessment Author Yes 02/18/2024 9:37 PM Daryn Browning RN * Because of a physical, mental, or emotional condition, do you have serious difficulty doing errandsalone such as visiting the doctor? Answer Date of Assessment Author Yes 02/18/2024 9:37 PM Daryn Browning RN documented as of this encounter Mental Status * Because of a physical, mental, or emotional condition, do you have serious difficulty concentrating, remembering, or making decisions? (5 years old or older) Answer Entry Date Author No 02/18/2024 9:37 PM Daryn Browning RN documented in this encounter Progress Notes * Nery Dallas [place] - 08/07/2024 4:16 PM EDT Last Rx was prescribed for Humalog on 2021 We need prescribers information as well If there any changes on the doses? Please provide srivastava code and W4n [facility] Grp Id # Thanks * Nery Dallas MA - 08/07/2024 10:51 AM EDT Is this RX is Humalog or novolog ?please I need clarification I need signature for the scripts quantity amount Please provide Srivastava code Pcn [facility] Grp number Id number And dx * Norma Hong - 07/30/2024 2:38 PM EDT Prior Authorization for Medication-do not complete and send this encounter unless you have the fax from the pharmacy. Is this a Cover My Meds request: [place] of Medication HUMALOG INSULIN Dose of Medication N/A What is the RX # from the faxed refill? [id number] How does patient take this med? Inject 182 Units into the skin daily What Pharmacy did the fax come from: [facility] Pharmacy fax #: [phone] documented in this encounter Plan of Treatment Upcoming Encounters Date Type Department Care Team (Late st Contact Info) Description 08/29/2024 11:10 AM EDT Office Visit Gastroenterology - [place] 175 [facility] [address] [phone] Pratibha Dimas PA [address] [address] 09/04/2024 10:00 AM EDT Consult Adult Medicine [facility] [address] [place] [address] Elizabeth Thrasher MD [address] [place] [address] 09/17/2024 11:00 AM EDT Hospital Encounter [facility] Main OR [address] [place] [address] Soha Win MD [address] [address] 09/17/2024 11:00 AM EDT - 09/17/2024 1:00 PM EDT [facility] OR [address] [place] [phone] Soha Win MD [address] [address] IMPLANTATION STIMULATOR BLADDER STAGE 1 [31421 (CPT )] 10/16/2024 2:45 PM EDT Office Visit Pulmonolgy - [place] 175 [facility] [address] [place] [phone] Nanci Garner NP 175 [facility] [address] [place] [address] 10/25/2024 2:45 PM EDT Office Visit Urogynecology [facility] [address] [place] [address] Mehreen Bryant NP 580 [facility] [address] [place] [address] Scheduled Procedures Name Priority Associated Diagnoses Date/Ti me IMPLANTATION STIMULATOR BLADDER STAGE 1 OAB (overactive bladder) Urinary urgency 09/17/2024 11:00 AM EDT IMPLANTATION STIMULATOR BLADDER STAGE 2 OAB (overactive bladder) Urinary urgency 09/17/2024 11:00 AM EDT documented as of this encounter Visit Diagnoses Not on filedocumented in this encounter Care Teams Electronics Instructor Relationship Specialty Start Date End Date Elizabeth Thrasher MD [address] [place] [address] PCP - General Internal Medicine 01/27/15 documented as of this encounter
--- OUTSIDE RECORDS SUMMARY | 2024-08-24 12:00 | XMS_ITS ---
Author Name [facility] Organization Unknown History of Medication Use Medication Directions Dispensed Refills Start Date End Date Stat us insulin degludec (Tresiba FlexTouch U-200) 200 unit/mL (3 mL) CONCENTRATED injection pen Inject 50 Units into the skin daily. 07/17/2024 active senna-docusate (PERICOLACE) 8.6-50 mg per tablet Take 2 tablets by mouth at bedtime. 06/14/2024 active blood sugar diagnostic (FreeStyle Lite Strips) test strip USE TO CHECK BLOOD SUGAR THREE TIMES DAILY 06/07/2024 active ondansetron (ZOFRAN) 4 mg tablet Take 1 tablet (4 mg total) by mouth 4 (four) times a day if needed for nausea or vomiting. 04/20/2024 active pantoprazole (PROTONIX) 40 mg EC tablet Take 1 tablet (40 mg total) by mouth 2 (two) times a day before meals. Do not crush, chew, or split. 04/20/2024 active chlorproMAZINE (THORAZINE) 100 mg tablet Take 1 tablet (100 mg total) by mouth. at bedtime 04/12/2024 active lisinopriL (PRINIVIL,ZESTRIL) 5 mg tablet Take 1 tablet (5 mg total) by mouth at bedtime. 03/24/2024 active cholecalciferol (VITAMIN D-3) 50 mcg (2,000 unit) capsule TAKE 1 CAPSULE BY MOUTH EVERY DAY 03/06/2024 active HYDROcodone-acetaminoph en (NORCO) 5-325 mg per tablet Take 1 tablet by mouth 2 (two) times a day. Max Daily Amount: 2 tablets 02/09/2024 active fluticasone propion-salmeteroL (ADVAIR HFA) 230-21 mcg/actuation inhaler Inhale 2 Puffs into the lungs 2 times daily. 10/08/2023 active azaTHIOprine (IMURAN) 50 mg tablet Take 1 Tablet by mouth 2 times daily. 08/25/2023 active ramelteon (ROZEREM) 8 mg tablet Take 1 Tablet by mouth at bedtime as needed. 06/17/2023 active busPIRone (BUSPAR) 15 mg tablet Take 1 tablet (15 mg total) by mouth 2 (two) times a day. 03/11/2023 active azelastine (ASTELIN) 137 mcg (0.1 %) nasal spray USE 2 SPRAYS IN EACH NOSTRIL TWICE DAILY 12/10/2022 active lisdexamfetamine (Vyvanse) 60 mg capsule Take 1 Capsule by mouth daily. 09/07/2022 active ubrogepant (Ubrelvy) 100 mg tablet 01/01/2022 active cetirizine (ZyrTEC) 10 mg tablet Take 1 Tablet by mouth daily. 12/07/2021 active lithium (LITHOBID) 300 mg CR tablet Take 300 mg by mouth every morning. 02/02/2021 active lithium (ESKALITH) 450 mg CR tablet Take 1 tablet by mouth at bedtime. 08/18/2020 active chlorproMAZINE (THORAZINE) 10 mg tablet Take 1 tablet (10 mg total) by mouth 1 (one) time each day if needed. active chlorproMAZINE (THORAZINE) 50 mg tablet Take 1 tablet (50 mg total) by mouth. active gabapentin (NEURONTIN) 800 mg tablet Take 800 mg by mouth 2 times daily. active lamoTRIgine (LaMICtal) 200 mg tablet Take 150 mg by mouth at bedtime. Increase gradually until gets back at 200 mg twice daily active lumateperone (Caplyta) 42 mg capsule TAKE 1 CAPSULE BY MOUTH EVERY NIGHT active QUEtiapine (SEROquel) 25 mg tablet Take 1 tablet (25 mg total) by mouth 2 (two) times a day. active Allergies Allergen Reaction Severity Comment Documented Date Source Status NITROFURANTOIN MONOHYD/M-CRYST NAUSEA AND VOMITING 01/12/2024 [facility] active PHENAZOPYRIDINE NAUSEA AND VOMITING 01/12/2024 [facility] active CLINDAMYCIN Other reaction(s): Not available 10/04/2023 [facility] active CYCLOBENZAPRINE Other reaction(s): Not available 10/04/2023 [facility] active EMPAGLIFLOZIN Other reaction(s): Not available 10/04/2023 [facility] active ZINC NAUSEA AND VOMITING 10/04/2023 [facility] active PREDNISONE Patient states dellusions, bipolar wade, and thoughts.,Other Reaction(s): OTHER 07/20/2022 [facility] active DOXYCYCLINE 07/16/2022 [facility] AN active SUPER DENTURE ADHESIVE ANAPHYLAXIS angioedema 04/28/2022 [facility] active MYCOPHENOLATE MOFETIL 01/13/2022 [facility] active ADHESIVE 03/25/2021 [facility] active HAEMOPHILUS INFLUENZAE TYPE B 03/25/2021 [facility] active SEMAGLUTIDE Elevated Lipase - not to use another GLP-1 medication per endocrinologyi 12/18/2019 [facility] active METFORMIN diarrhea 04/10/2012 [facility] active NSAIDS (NON-STEROIDAL ANTI-INFLAMMATORY DRUG) Interactions with lithium 11/19/2010 [facility] active CLARITHROMYCIN vomitting 03/16/2006 [facility] AN active LATEX rash 03/16/2006 [facility] active AMOXICILLIN-POT CLAVULANATE DIARRHEA [facility] AN FLUVIRIN 0475-9501 [address] [facility] AN Problems Problem Status Onset Date Problem Type Date of Resolution Source Morbid obesity with BMI of 40.0-44.9, adult ([facility] V24, [facility] V28) active ProblemAct [facility] N Constipation active ProblemAct [facility] N Overlap syndrome ([facility] V24) active ProblemAct [facility] N Allergic rhinitis active ProblemAct [facility] N Amputation of toe ([facility] V24) active ProblemAct [facility] N Varicose veins with pain active 2018-08 ProblemAct [facility] N DJD of shoulder active ProblemAct [facility] N DJD (degenerative joint disease) of knee active ProblemAct [facility] N Urinary urgency active EncounterDiagnosisAct [facility]RA N Necrobiosis lipoidica diabeticorum ([facility] V24, [facility] V28) active ProblemAct [facility] N Type II diabetes mellitus with renal manifestations ([facility] V24, [facility] V28) active ProblemAct [facility] N ULISSES (obstructive sleep apnea) active ProblemAct [facility] N Hidradenitis active ProblemAct [facility] N Bipolar disorder ([facility] V24, [facility] V28) active ProblemAct [facility] N GERD (gastroesophageal reflux disease) active ProblemAct [facility] N Microalbuminuria active ProblemAct [facility] N Chronic inflammatory demyelinating polyradiculoneuropathy ([facility] V24, [facility] V28) active ProblemAct [facility]_TH[facility]RA N Restrictive pattern present on pulmonary function testing active ProblemAct CT_THSFRA N Status post amputation of great toe, right ([facility] V24) active ProblemAct [facility] N Cellulitis of foot active ProblemAct [facility] N Urge urinary incontinence active ProblemAct CT_THSFRA N Subclinical hypothyroidism active ProblemAct CT_THSFRA N Polyneuropathy in other diseases classified elsewhere ([facility] V24) active ProblemAct CT_THSFRA N Osteomyelitis of third toe of left foot ([facility] V24, [facility] V28) active ProblemAct [facility] N Multinodular goiter active ProblemAct [facility] N OAB (overactive bladder) active EncounterDiagno sisAct CT_THSFRA N Allergic rhinitis due to pollen active ProblemAct [facility] N Gout active ProblemAct CT_[facility] N Vitamin D deficiency active ProblemAct CT_[facility]SFRA N Cranial nerve palsy active ProblemAct [facility] N Hyperlipidemia active ProblemAct [facility] N Polycystic ovary syndrome active ProblemAct [facility] N Asthma active ProblemAct CT_[facility]RA N Fatty liver active ProblemAct CT_THSFRA N Type II diabetes mellitus with neurological manifestations ([facility] V24, [facility] V28) active ProblemAct [facility]_TH[facility]RA N Gout active ProblemAct CT_THSFRA N Cranial nerve palsy active ProblemAct CT_THSFRA N Morbid obesity with BMI of 40.0-44.9, adult ([facility] V24, [facility] V28) active ProblemAct CT_TH[facility]RA N GERD (gastroesophageal reflux disease) active ProblemAct CT_TH[facility]RA N Bipolar disorder ([facility] V24, [facility] V28) active ProblemAct CT_THSFRA N ULISSES (obstructive sleep apnea) active ProblemAct CT_THSFRA N Polycystic ovary syndrome active ProblemAct CT_THSFRA N Restrictive pattern present on pulmonary function testing active ProblemAct CT_THSFRA N Varicose veins with pain active 2018-08 ProblemAct [facility]_TH[facility] N Asthma active ProblemAct CT_THSFRA N Necrobiosis lipoidica diabeticorum ([facility] V24, [facility] V28) active ProblemAct CT_THSFRA N Allergic rhinitis due to pollen active ProblemAct CT_THSFRA N Amputation of toe ([facility] V24) active ProblemAct CT_THSFRA N Chronic inflammatory demyelinating polyradiculoneuropathy ([facility] V24, [facility] V28) active ProblemAct CT_THSFRA N Polyneuropathy in other diseases classified elsewhere ([facility] V24) active ProblemAct CT_THSFRA N Urinary urgency active EncounterDiagnosisAct CT_CRISPINSFRA N Status post amputation of great toe, right ([facility] V24) active ProblemAct CT_CRISPINSFRA N DJD of shoulder active ProblemAct CT_CRISPINSFRA N Hidradenitis active ProblemAct CT_CRISPINSFRA N Immunizations Vaccine Date Source Lot Number Status FitStar SARS-CoV-2 COVID-19, mRNA, LNP-S, preservative free 02/16/2021 [facility]_REJI [id number] completed FitStar SARS-CoV-2 COVID-19, mRNA, LNP-S, preservative free 05/27/2020 [facility]I [id number] completed Pfizer SARS-CoV-2 COVID-19, mRNA, LNP-S, preservative free 05/04/2020 [facility]_REJI [id number] completed Pneumococcal polysaccharide 23 valent (Pneumovax 23) 2yo and older 06/22/2017 CT_CRISPINSFRED [id number] com pleted Td Tetanus diptheria (Tdvax) 7yo and older 06/22/2017 CT_T HSFRAN [id number] completed Pneumococcal conjugate 13 va lent (Prevnar 13, PCV13) 2mo and older 04/02/2015 [facility]_THSFRAN [id number] complet ed Tdap Tetanus diptheria acell ular pertussis (Boostrix; Adacel) 7yo and older 10/26/2014 [facility]_THSFRAN [id number] completed Tdap Tetanus diptheria acell ular pertussis (Boostrix; Adacel) 7yo and older 10/13/2006 CT_CRISPINSFRED [id number] completed Encounters Encounter Type Encounter Reason Primary Diagnosis Location Date Ambulatory [facility] 11/18/2023 Care Team Organization Name Specialty Phone Email Start Date End Da te Count includes the [facility] 2024
--- OUTSIDE RECORDS SUMMARY | 2024-08-24 12:00 | XMS_ITS | Clinical Summary ---
Author Organization [facility] Address [address] [place] [address] Care Team Providers Care Stake Driver Name Role Phone Elizabeth Thrasher MD Primary Care Provider [phone] Allergies Active Allergy Reactions Criticality Noted Date Comments Adhesive Tape 03/25/2021 Amoxicillin-Pot Clavulanate 03/25/19 22 Clarithromycin 03/25/2021 Clindamycin 03/16/2006 vomitting Denture Adhesive Anaphylaxis High 07/20/2022 Influenza Virus Vaccine 03/25/2021 Latex 03/25/2021 Metformin 03/25/2021 Semaglutide(0.25 Or 0.5mg-Dos) 03/25 Prednisone 07/20/2022 Medications Medication Sig Dispensed Refills Start Date End Date Status Insulin Degludec 100 UNIT/ML SOLN Inject under the skin. 0 Active Fluticasone-Umeclidin -Vilant (TRELEGY ELLIPTA IN) Inhale into the lungs. 0 Active Glucose Blood (COOL BLOOD GLUCOSE TEST STRIPS ) by In Vitro route. 0 Active omeprazole (PriLOSEC) 20 MG capsule Take 2 capsules (40 mg total) by mouth 2 (two) times a day. 0 Active oxyCODONE HCl ER (OxyCONTIN) 20 MG T12A controlled release tablet Take 1 tablet (20 mg total) by mouth every 12 (twelve) hours. 0 Active HYDROcodone-acetamino phen (NORCO) 5-325 MG per tablet Take 1 tablet by mouth every 6 (six) hours as needed for pain. 0 Active lithium (ESKALITH) 450 MG CR tablet Take 1 tablet (450 mg total) by mouth 2 (two) times a day. 0 Active insulin aspart (NovoLOG FLEXPEN) injection 100 units/mL Inject under the skin. 0 Active lisinopril (PRINIVIL,ZESTRIL) tablet 5 mg Take 1 tablet (5 mg total) by mouth daily. 0 Active traZODone (DESYREL) 25 MG split tablet Take 4 split tablet (100 mg total) by mouth every night at bedtime. 0 Active montelukast (SINGULAIR) 10 MG tablet Take 1 tablet (10 mg total) by mouth every night at bedtime. 0 Active gabapentin (NEURONTIN) 800 MG tablet Take 1 tablet (800 mg total) by mouth 2 (two) times a day. 0 Active busPIRone (BUSPAR) 5 MG tablet Take 2 tablets (10 mg total) by mouth 2 (two) times a day. 0 Active QUEtiapine (SEROquel) 25 MG tablet Take 1 tablet (25 mg total) by mouth every night at bedtime. 0 Active lamoTRIgine (LaMICtal) 200 MG tablet Take 1 tablet (200 mg total) by mouth 2 (two) times a day. 0 Active trihexyphenidyl (ARTANE) 2 MG tablet Take 1 tablet (2 mg total) by mouth 2 (two) times a day with meals. 0 Active clonazePAM (KlonoPIN) 1 MG tablet Take 1 mg by mouth 2 (two) times a day as needed for anxiety. 0 Active meloxicam (MOBIC) 7.5 MG tablet Take 1 tablet (7.5 mg total) by mouth 2 (two) times a day. 0 Active lithium (LITHOBID) 300 MG CR tablet Take 1 tablet (300 mg total) by mouth every morning. 0 Active naloxone (NARCAN) 4 MG/0.1ML LIQD spray or apply 1 packet inside Nose once. 0 Active rizatriptan (MAXALT) 10 MG tablet Take 10 mg by mouth as needed for migraine. May repeat in 2 hours if needed 0 Active QUEtiapine (SEROquel) 200 MG tablet Take 1 tablet (200 mg total) by mouth every night at bedtime. 0 Active erenumab-aooe (Aimovig) 70 MG/ML SOAJ Inject 1 mL (70 mg total) under the skin every 30 (thirty) days. 0 01/23/2019 Active Ubrogepant (UBRELVY PO) Take by mouth. 0 Active lumateperone (Caplyta) 42 MG capsule Take 1 capsule (42 mg total) by mouth daily. 0 Active minocycline 100 MG capsule Take 1 capsule (100 mg total) by mouth 2 (two) times a day. 0 Active Active Problems Problem Noted Date Diagnosed Date Low iron stores 04/11/2021 Neutrophilia due to treatment with lithium 04/11 Polycystic ovarian syndrome Morbid obesity Hypothyroid Hyperlipidemia Gout Fatty liver Diabetes mellitus Overview: Type 2 diabetes with renal manifestation Chronic inflammatory demyelinating polyneuropath y Bipolar disorder Asthma Family History Medical History Relation Name Comments Diabetes Father Hypertension Mother Relation Name Status Comments Father Mother Social History Tobacco Use Types Packs/Day Years Used Date Smoking Tobacco: Every Day Cigarettes 1 20 Started: 1995 Smokeless Tobacco: Never Tobacco Cessation:Ready to Q uit: Not Asked; Counseling Given: Not Answered Alcohol Use Standard Drinks/Week Comments Never 0 (1 standard drink = 0.6 oz pur e alcohol) Sex and Gender Information Value Date Recorded Sex Assigned at Not on file Gender Identity Not on file Sexual Orientation Not on file Job Start Date Occupation Industry Not on file Not on file Not on file Last Filed Vital Signs Vital Sign Reading Time Taken Comments Blood Pressure 119/65 07/21/2022 12:17 PM EDT Pulse 76 07/21/2022 12:17 PM EDT Temperature 36.2 C (97.2 F) 07/21/2022 12:17 PM EDT Respiratory Rate - - Oxygen Saturation 98% 07/21/2022 12:17 PM EDT Inhaled Oxygen Concentration - - Weight 133.4 kg (294 lb) 07/20/2022 1:40 PM EDT Height 177.8 cm (5' 10 ) 07/20/2022 1:40 PM EDT Body Mass Index 42.18 07/20/2022 1:40 PM EDT Plan of Treatment Health Maintenance Due Date Last Done Comments Hepatitis B Vaccines (1 of 3 - 3-dose series) 1975 Hepatitis C Screening 1975 Depression Screening 1987 Preventative Health Evaluation 05/25/1993 Tobacco Cessation Counseling 05/25/1993 Cervical Cancer Screening (Pap Smear) 05/25/1996 Colon Cancer Screening (Colonoscopy) 05/25/2020 Pneumococcal Vaccine (3 of 3 - PPSV23 or PCV20) 06/22/2022 06/22/2017, 04/02/2015 COVID-19 Vaccine (4 - 2023-2 5 season) 2023 02/16/2021, 05/27/2020, 05/04/2020 Influenza Vaccine (#1) 2024 DTap / Tdap / Td (4 - Td or Tdap) 06/23/2027 06/22/2017, 10/26/2014, 10/13/2006 RSV Ped < 20 months Aged Out No longe r eligible based on patient's age to complete this topic Care Teams Stake Driver Relationship Specialty Start Date End Date Elizabeth Thrasher MD PCP - General Internal Medicine 03/25/21
--- OUTSIDE RECORDS SUMMARY | 2024-08-24 12:00 | XMS_ITS | Encounter Summary ---
Author Organization [facility] Address [address] [place] [address] Encounters * CPT with Wilton Gutierrez at [facility] on 2024-08-03 { reasonForRequest : Pt reporting swelling of both lower extremities, redness creeping up the calves, warm to the touch>overall worse with the right leg , patientReports : History of cellulitis, isolated redness noted , denies :[ Farnsworth Flash, circumferential farnsworth ,"Farnsworth reported with black tissue to the area , Open skin area after a fall with uncontrolled bleeding , Abscess/infection with streaking noted, presence of fever or without ], chiefComplaints : Extremity Swelling, Extremity Pain , pmh : Diabetes Mellitus Type 2, Hypertension, Asthma, Bipolar Disorder, Post-Traumatic Stress Disorder (PTSD) , allergies : No Known Drug Allergies , otherAllergies : & quot;, painAssessment : , visitOutcome : , additionalComments : 49 y.o female complains of Extremity Swelling, Extremity Pain\n\nAdditional PMH- diabetic kidney disease and CDIP\n\nPatient reporting a week of BLE edema, and it is worsening, especially on her right foot.\nPatient with redness, swelling, pain and warmth to BLEs, history of cellulitis.\nPer [facility] edema is 3-4+ pitting.\nShe is having pain with ambulation.\nLegs are shiny and taught, denies any weeping, no blisters or dryness.\nPatient would like to be evaluated.\n\n\nI provided information on the mobile health provider response time and advised the patient and/or caregiverto monitor reported signs and symptoms. I discussed the warning signs of when to seek emergency care. } Patient alert and oriented, complains of rash and swelling to lower legs times seven days. Patient reports no history of edema or use of diuretics or CHF.. Patient reports no history of cellulitis oruse of antibiotics for legs. Patient reports burning itching mildly tender. Patient reports decreased mobility with swollen legs. Patient denies difficulty breathing, shortness of breath, weakness, dizziness, nausea, vomiting, diarrhea, fever, chills, or any other pain or complaint. Patient denies dysuria. Patient pink warm, dry, lung sounds clear negative increased work of breathing positive full sentences abdomen soft, nontender extremities in pictures, some extra heat noted at red areas, +2 pedal edema with tenderness noted bilateral feet. Test and medications administered as ordered without complication using five rights. Patient advised to follow up with PCP, call [facility] back on Tuesday if no change in swelling or other symptoms. Patient demonstrates understanding of care and plan. IV_(FLUIDS_AND/OR_MEDICATION), MEDICATION_IM, ORAL_MEDICATION, WOUND_CARE, ORTHOSTATIC_VITAL_SIGNS Written by Wilton Gutierrez on 2024-08-03
== END 2024-08-24 12:04 | disposition home or self-care (01) ==
LOC: HO.PMC 11:38
PROVIDERS: PCP Internal Medicine; Visit Provider Nurse Practitioner Family
DX: M51.369 Other intervertebral disc degeneration, lumbar region without mention of lumbar back pain or lower extremity pain (principal); M47.817 Spondylosis without myelopathy or radiculopathy, lumbosacral region; G89.4 Chronic pain syndrome; G63 Polyneuropathy in diseases classified elsewhere; E66.01 Morbid (severe) obesity due to excess calories; Z68.41 Body mass index [BMI] 40.0-44.9, adult; M79.7 Fibromyalgia
CPT/HCPCS: 99213; G2211

== ENCOUNTER → 2024-08-24 11:38 | Outpatient (BNVA) | payer OTHER, SELFPAY | PROVIDERS: PCP Internal Medicine; Visit Provider Nurse Practitioner Family | DX: M79.7 Fibromyalgia (principal); M51.360 Other intervertebral disc degeneration, lumbar region with discogenic back pain only; M47.817 Spondylosis without myelopathy or radiculopathy, lumbosacral region; G89.4 Chronic pain syndrome; G63 Polyneuropathy in diseases classified elsewhere; E66.01 Morbid (severe) obesity due to excess calories | CPT/HCPCS: 99212 ==

== ENCOUNTER 2024-12-14 13:41 | Outpatient (REF) | payer OTHER, SELFPAY ==
--- OUTSIDE RECORDS SUMMARY | 2024-12-12 23:59 | XMS_ITS | Continuity of Care Document ---
Author Organization [facility] Address [address] [facility], [address] d Floor, [address] [place] [phone]- Care Team Providers Care Differential Tester Name Role Phone Elizabeth Thrasher MD Primary Care Physician Encounter [facility] Date(s): 11/12/24 - 12/12/24 [facility] [address] [facility] 3rd Floor, [address] [place] [address] Encounter Type: Triage Allergies, Adverse Reactions, Alerts Substance Criticality Severity Reaction Reaction Severity Status clindamycin vomiting Active predniSONE causes wade Active metFORMIN Active Ozempic Entire liver Active zinc sulfate Active Biaxin High criticality Severe [D]Nausea a nd vomiting Active Augmentin vomiting Active Adhesive Bandage itching Act slim Latex rash Active Tape clear tape, rash Act slim Other Environmental Allergy Rash CHAPSTICK & MAKEUP Active Jardiance UTI - urinary tract infection in Active Immunizations Given and Recorded Vaccine Date Status Refusal Reason tetanus/diphtheria/pertussis, acel(Tdap) 10/26/14 Given Medications acetaminophen 325 mg oral tablet 650 mg, By Mouth, Every 6 hours, Refills 0, Maintenance, 06/09/24 10:40:00 AM EDT, Partial fill upon patient request if the prescription is for a schedule II opioid drug. Start Date: 06/09/24 Status: Ordered Medication Dispense Status: Completed Total Allowed Fills: 1 Fills Dispensed: 0 Advair HFA 230 mcg / 21 mcg INHALE 2 PUFFS INTO THE LUNGS TWICE DAILY Start Date: 06/01/24 Status: Ordered Medication Dispense Status: Completed Total Allowed Fills: 1 Fills Dispensed: 0 Aimovig SureClick Autoinjector-aooe 140 mg/mL subcutaneous solution See Instructions, ADMINISTER 140 MG(1 ML) UNDER THE SKIN EVERY 28 DAYS, # 1 mL, 11 Refills, Maintenance, 07/05/23 8:09:00 AM EDT, [facility] #[id number], 175, cm, 04/05/23 14:57:00 EST, Height, 131.2, kg, 11/19/22 13:25:00 EDT, Dry Weight Start Date: 07/05/23 Status: Ordered Medication Dispense Status: Completed Quantity: 1.0 Unit: mL Total Allowed Fills: 1 Fills Dispensed: 0 Aimovig SureClick Autoinjector-aooe 140 mg/mL subcutaneous solution See Instructions, ADMINISTER 140 MG(1 ML) UNDER THE SKIN EVERY 28 DAYS, # 1 mL, 7 Refills, Maintenance, 08/31/24 5:24:00 PM EDT, [facility] #[id number], 175.2, cm, 06/27/24 23:14:00 EDT, Height, 130.1, kg, 06/27/24 23:14:00 EDT, Dry Weight Start Date: 08/31/24 Status: Ordered Medication Dispense Status: Completed Quantity: 1.0 Unit: mL Total Allowed Fills: 8 Fills Dispensed: 0 azaTHIOprine 50 mg oral tablet 150 mg, 3, tablet, By Mouth, Daily, # 90 tablet, Refills 5, Tot. Refills 5, Maintenance, 10/31/24 3:07:00 PM EDT, Route to Pharmacy Electronically, [facility] #[id number], Partial fill upon patient request if the prescription is for a schedule II opioid drug., 175.2, cm, 09/04/24 14:50:00 EDT, Height, 130.1, kg, 06/27/24 23:14:00 EDT, Dry Weight Start Date: 10/31/24 Status: Ordered Medication Dispense Status: Completed Quantity: 90.0 Unit: tablet Total Allowed Fills: 6 Fills Dispensed: 0 baclofen 10 mg oral tablet 10 mg, By Mouth, 3 times a day, PRN, Refills 0, Maintenance, Spasm, 06/09/24 10:40:00 AM EDT, Partialfill upon patient request if the prescription is for a schedule II opioid drug. Start Date: 06/09/24 Status: Ordered Medication Dispense Status: Completed Total Allowed Fills: 1 Fills Dispensed: 0 Bariatric Wheelchair Bariatric Wheelchair, See Instructions, # 1 each, Refills 0, Tot. Refills 0, Maintenance, Use for ambulation Dx CIDP [G61.81]; impaired mobility [Z74.0]; risk for falls [Z91.81] Ht 175.2 cm Wt 130.1 kg Duration: lifetime, 10/16/24 12:00:00 PM EDT, Supply, 175.2, cm, 09/04/24 14:50:00 EDT, Height, 130.1, kg, 06/27/24 23:14:00 EDT, Dry Weight Start Date: 10/16/24 Status: Ordered Medication Dispense Status: Completed Quantity: 1.0 Unit: each Total Allowed Fills: 1 Fills Dispensed: 0 BuSpar 10 mg oral tablet 15 mg, By Mouth, 3 times a day, Refills 0, Maintenance, 07/27/22 3:02:00 PM EDT, Partial fill upon patient request if the prescription is for a schedule II opioid drug. Start Date: 07/27/22 Status: Ordered Medication Dispense Status: Completed Total Allowed Fills: 1 Fills Dispensed: 0 Caplyta 42 mg oral capsule 1 capsule = 42 mg, By Mouth, Daily, 0 Refills, Maintenance, 07/27/22 3:02:00 PM EDT, Partial fill upon patient request if the prescription is for a schedule II opioid drug. Start Date: 07/27/22 Status: Ordered Medication Dispense Status: Completed Total Allowed Fills: 1 Fills Dispensed: 0 celecoxib 200 mg oral capsule = 200 mg, By Mouth, Daily, 0 Refills, Maintenance, 06/09/24 10:40:00 AM EDT, Capsule, Partial fill upon patient request if the prescription is for a schedule II opioid drug. Start Date: 06/09/24 Status: Ordered Medication Dispense Status: Completed Total Allowed Fills: 1 Fills Dispensed: 0 chlorproMAZINE 10 mg oral tablet See Instructions Start Date: 06/01/24 Status: Ordered Medication Dispense Status: Completed Total Allowed Fills: 1 Fills Dispensed: 0 chlorproMAZINE 100 mg oral tablet See Instructions, 3 tablet By Mouth at bedtime, 0 Refills, Maintenance, 06/01/24 1:57:00 PM EDT, Tablet, Partial fill upon patient request if the prescription is for a schedule II opioid drug. Start Date: 06/01/24 Status: Ordered Medication Dispense Status: Completed Total Allowed Fills: 1 Fills Dispensed: 0 chlorproMAZINE 50 mg oral tablet 1 tablet = 50 mg, By Mouth, 2 times a day, # 180 tablet, 0 Refills, Maintenance, 06/01/24 1:58:00 PMEDT, Tablet, Partial fill upon patient request if the prescription is for a schedule II opioid drug. Start Date: 06/01/24 Status: Ordered Medication Dispense Status: Completed Quantity: 180.0 Unit: tablet Total Allowed Fills: 1 Fills Dispensed: 0 docusate sodium 100 mg oral capsule 100 mg, 1, capsule, By Mouth, 2 times a day, # 60 capsule, Refills 0, Tot. Refills 0, Maintenance, 06/09/24 10:38:00 AM EDT, Route to Pharmacy Electronically, [facility], Partial fill upon patient request if the prescription is for a schedule II opioid drug., 173, cm, 06/09/24 6:30:00 ED T, Height, 125, kg, 06/08/24 14:29:00 EDT, Dry Weight Start Date: 06/09/24 Status: Ordered Medication Dispense Status: Completed Quantity: 60.0 Unit: capsule Total Allowed Fills: 1 Fills Dispensed: 0 Ecotrin 325 mg oral delayed release tablet 1 tablet = 325 mg, By Mouth, 2 times a day, # 60 tablet, 0 Refills, Maintenance, 06/09/24 10:38:00 AMEDT, EC Tablet, [facility], Partial fill upon patient request if the prescription is for a schedule II opioid drug., 173, cm, 06/09/24 6:30:00 EDT, Height, 125, kg, 06/08/24 14:29:00 EDT, Dry Weight Start Date: 06/09/24 Stop Date: 07/09/24 Status: Ordered Medication Dispense Status: Completed Quantity: 60.0 Unit: tablet Total Allowed Fills: 1 Fills Dispensed: 0 gabapentin 800 mg oral tablet 1 tablet, By Mouth, 3 times a day, # 270 tablet, 5 Refills, Maintenance, 03/16/24 11:32:00 AM EST, [facility] #[id number], 175, cm, 04/05/23 14:57:00 EST, Height, 131.2, kg, 11/19/22 13:25:00 EDT,Dry Weight Start Date: 03/16/24 Status: Ordered Medication Dispense Status: Completed Quantity: 270.0 Unit: tablet Total Allowed Fills: 6 Fills Dispensed: 0 hydrOXYzine hydrochloride 25 mg oral tablet TAKE 1 TO 2 TABLETS BY MOUTH EVERY NIGHT NEEDED Start Date: 05/24/24 Status: Ordered Medication Dispense Status: Completed Total Allowed Fills: 1 Fills Dispensed: 0 knee immobilizer knee immobilizer, See Instructions, # 1 application, Refills 0, Tot. Refills 0, Maintenance, to walk, 01/26/14 12:44:19 PM EST, Compound Start Date: 01/26/14 Status: Ordered Medication Dispense Status: Completed Quantity: 1.0 Unit: application Total Allowed Fills: 1 Fills Dispensed: 0 LaMICtal 200 mg oral tablet 1 tablet = 200 mg, By Mouth, 2 times a day, 0 Refills, Maintenance, 09/24/15 11:14:42 AM EDT Start Date: 09/24/15 Status: Ordered Medication Dispense Status: Completed Total Allowed Fills: 1 Fills Dispensed: 0 lisinopril 5 mg oral tablet 5 mg, 1, tablet, By Mouth, Daily, # 30 tablet, Refills 0, Maintenance, 09/12/16 8:33:15 PM EDT Start Date: 09/12/16 Status: Ordered Medication Dispense Status: Completed Quantity: 30.0 Unit: tablet Total Allowed Fills: 1 Fills Dispensed: 0 lithium 300 mg oral capsule 1 capsule = 300 mg, By Mouth, Daily, 0 Refills, Maintenance, 05/24/24 2:33:00 PM EDT, Capsule, Partial fill upon patient request if the prescription is for a schedule II opioid drug. Start Date: 05/24/24 Status: Ordered Medication Dispense Status: Completed Total Allowed Fills: 1 Fills Dispensed: 0 lithium 450 mg oral tablet, extended release 1 tablet = 450 mg, By Mouth, Daily at bedtime, 0 Refills, Maintenance, 05/24/24 2:33:00 PM EDT, Partial fill upon patient request if the prescription is for a schedule II opioid drug. Start Date: 05/24/24 Status: Ordered Medication Dispense Status: Completed Total Allowed Fills: 1 Fills Dispensed: 0 MiraLax Powder 1 pack/packet = 17 Gm, By Mouth, Daily, 0 Refills, Maintenance, 11/22/22 9:46:00 AM EDT, Powder, Partial fill upon patient request if the prescription is for a schedule II opioid drug. Start Date: 11/22/22 Status: Ordered Medication Dispense Status: Completed Total Allowed Fills: 1 Fills Dispensed: 0 montelukast 10 mg oral tablet 10 mg, 1, tablet, By Mouth, Daily in PM, # 30 tablet, Refills 0, Maintenance, 10/18/22 2:44:00 PM EDT, Partial fill upon patient request if the prescription is for a schedule II opioid drug. Start Date: 10/18/22 Status: Ordered Medication Dispense Status: Completed Quantity: 30.0 Unit: tablet Total Allowed Fills: 1 Fills Dispensed: 0 NovoLOG 100 units/mL injectable solution ADMINISTER 182 UNITS UNDER THE SKIN DAILY DIRECTED. INSULIN PUMP Start Date: 06/01/24 Status: Ordered Medication Dispense Status: Completed Total Allowed Fills: 1 Fills Dispensed: 0 ondansetron 4 mg oral tablet 1 tablet = 4 mg, By Mouth, Every 8 hours, PRN Nausea & Vomiting, # 10 tablet, 0 Refills, Maintenance, 06/01/24 2:01:00 PM EDT, Tablet, Partial fill upon patient request if the prescription is for a schedule II opioid drug. Start Date: 06/01/24 Status: Ordered Medication Dispense Status: Completed Quantity: 10.0 Unit: tablet Total Allowed Fills: 1 Fills Dispensed: 0 OxyCONTIN 20 mg oral tablet, extended release 20 mg, By Mouth, Every 12 hours, # 10 tablet, Refills 0, Tot. Refills 0, Maintenance, 11/22/22 9:40:00 AM EDT, Print Requisition, Partial fill upon patient request if the prescription is for a schedule II opioid drug. Start Date: 11/22/22 Status: Ordered Medication Dispense Status: Completed Quantity: 10.0 Unit: tablet Total Allowed Fills: 1 Fills Dispensed: 0 pantoprazole 40 mg oral delayed release tablet TAKE 1 TABLET BY MOUTH TWICE DAILY ON EMPTY STOMACH Start Date: 06/01/24 Status: Ordered Medication Dispense Status: Completed Total Allowed Fills: 1 Fills Dispensed: 0 Power Lift Recliner Power Lift Recliner, See Instructions, # 1 each, Refills 0, Tot. Refills 0, Maintenance, Use As Indicated Dx: CIDP (G61.81); Reduced Mobility (Z74.09) Duration: Lifetime, 11/27/24 12:08:00 PM EDT, Supply Start Date: 11/27/24 Status: Ordered Medication Dispense Status: Completed Quantity: 1.0 Unit: each Total Allowed Fills: 1 Fills Dispensed: 0 Senna 8.6 mg oral tablet 8.6 mg, 1, tablet, By Mouth, Daily at bedtime, Refills 0, Maintenance, 10/18/22 2:38:00 PM EDT, Partial fill upon patient request if the prescription is for a schedule II opioid drug. Start Date: 10/18/22 Status: Ordered Medication Dispense Status: Completed Total Allowed Fills: 1 Fills Dispensed: 0 spironolactone 100 mg oral tablet TAKE 1 TABLET BY MOUTH DAILY Start Date: 06/01/24 Status: Ordered Medication Dispense Status: Completed Total Allowed Fills: 1 Fills Dispensed: 0 Tresiba FlexTouch 200 units/mL subcutaneous solution = 50 units, Daily at bedtime, INJECT 50 UNITS INTO THE SKIN DAILY Start Date: 06/01/24 Status: Ordered Medication Dispense Status: Completed Total Allowed Fills: 1 Fills Dispensed: 0 Ubrelvy 100 mg oral tablet 0 Refills, Maintenance, 05/24/24 2:44:00 PM EDT, Partial fill upon patient request if the prescription is for a schedule II opioid drug. Start Date: 05/24/24 Status: Ordered Medication Dispense Status: Completed Total Allowed Fills: 1 Fills Dispensed: 0 Ventolin HFA 108 mcg/inh inhalation aerosol with adapter 1 puffs, Inhalation, 4 times a day, PRN for wheezing, # 8 Gm, 0 Refills, Maintenance, 04/27/18 1:35:25 PM EDT, Aerosol Start Date: 04/27/18 Status: Ordered Medication Dispense Status: Completed Quantity: 8.0 Unit: g Total Allowed Fills: 1 Fills Dispensed: 0 Vyvanse 60 mg oral capsule 1 capsule = 60 mg, By Mouth, Daily in AM, # 10 capsule, 0 Refills, Maintenance, 11/22/22 9:42:00 AMEDT, Capsule, Partial fill upon patient request if the prescription is for a schedule II opioid drug. Start Date: 11/22/22 Status: Ordered Medication Dispense Status: Completed Quantity: 10.0 Unit: capsule Total Allowed Fills: 1 Fills Dispensed: 0 wheelchair wheelchair, See Instructions, # 1 each, Refills 0, Tot. Refills 0, Maintenance, Wheel chair, :38:00 PM EDT, Supply Start Date: 10/10/24 Status: Ordered Medication Dispense Status: Completed Quantity: 1.0 Unit: each Total Allowed Fills: 1 Fills Dispensed: 0 wheelchair wheelchair, See Instructions, # 1 each, Refills 0, Tot. Refills 0, Maintenance, wheelchair, 10/10/24 2:42:00 PM EDT, Supply Start Date: 10/10/24 Status: Ordered Medication Dispense Status: Completed Quantity: 1.0 Unit: each Total Allowed Fills: 1 Fills Dispensed: 0 ZyrTEC 10 mg oral tablet 1 tablet = 10 mg, By Mouth, Daily, 0 Refills, Maintenance, 07/27/22 3:01:00 PM EDT, Partial fill upon patient request if the prescription is for a schedule II opioid drug. Start Date: 07/27/22 Status: Ordered Medication Dispense Status: Completed Total Allowed Fills: 1 Fills Dispensed: 0 Problem List Condition Confirmation Course Effective Dates Status H ealth Status Informant Asthma Confirmed Active ADHD Confirmed Active Autoimmune hypothyroidism Confirmed Active Bipolar disorder Confirmed Active CIDP (chronic inflammatory demyelinating polyneuropathy) Confirmed Active Diabetes mellitus - adult onset Confirmed Active Fungal infection of nail Confirmed Active Gout Confirmed Active Hyponatremia Confirmed Active Necrobiosis lipoidica Confirmed Active Polycystic ovary syndrome Confirmed Active PCOS (polycystic ovarian syndrome) Confirmed Active Post traumatic stress disorder (PTSD) Confirmed Active Severe obesity Confirmed Active Social History Social History Type Response Smoking Status 10 or more cigarette s (1/2 pack or more)/day in last 30 days; Interested in cessation: Yes; Patient wants NRT during admission No entered on: 07/27/22 Sexual Orientation Self described orien tation: ; Bisexual Sex Sex Representation Female (finding) Patient Care team information Care Team Personnel Name: Miko Godwin RN Position: [facility] RN Member Role: Primary Care Nurse Name: Brunilda Velazco RN Position: [facility] RN Member Role: Primary Care Nurse Name: Kacie Crowell RN Position: [facility] RN Member Role: Primary Care Nurse Name: Yessenia Hartley RN Position: [facility] RN Member Role: Primary Care Nurse Name: Jean Carlos Lowe RN Position: [facility] RN Member Role: Primary Care Nurse Name: Shena Small Position: [facility] Outreach Member Role: Lifetime Consulting Physician Name: Mi Aaron RN Position: [facility] RN Member Role: Primary Care Nurse Name: Elizabeth Thrasher MD Position: [facility] Physician - Primary Care Member Role: PCP Address: [address] [place] [id number] Telecom: Name: Jessica Tripathi RN Position: [facility] RN Member Role: Primary Care Nurse Name: Marlys Aguero RN Position: [facility] RN Member Role: Primary Care Nurse Care Team Related Persons Name: JACK ARCHER Name: PRAVEEN ARCHER Name: CHRISTINA ALFORD Name: NICHOLAS ALFORD Insurance Providers Guarantor name: RAJESH ARCHER Health Plan Information #: 1 Payer: [facility] Payer Identifier: NA Member Number: [id number] Group Number: [id number] Subscriber Identifier: NA Relationship to Subscriber: self Coverage Type: Medicare Managed Care (Includes Medicare Advantage Plans) Coverage Verification Date: FIONA Telecom: NA Address: NA
--- OUTSIDE RECORDS SUMMARY | 2024-12-14 15:44 | XMS_ITS | Encounter Summary ---
Author Organization [facility] Address [address] [place] [address] Care Team Providers Care Pilot Control Operator Name Role Phone Elizabeth Thrasher MD Primary Care Provider [phone] Reason for Visit * Reason Onset Date Comments Fitting for DME 11/27/2024 Encounter Details Date Type Department Care Team (Late st Contact Info) Description 11/27/2024 Telephone Adult Medicine [facility] [address] [place] [phone] Elizabeth Thrasher MD [address] [place] [phone] Social History Tobacco Use Types Packs/Day Years [...] Record ed Within the last 3 months, ho w many times did you visit the emergency [...] for your loved ones. For example, child watch attendant or elderly care for an older adult? [...] Date Recorded What is your living situation? Unrecognized valu e 01/22/2024 Interpersonal Safety Answer Date Record ed Physical Abuse Unrecognized value 01/22/2024 Verbal Abuse Unrecognized value 01/22/2024 Comments No Sex and Gender Information Value Date Recorded Sex Assigned at Female 02/18/2024 8:51 PM EST Legal Sex Female 5:23 AM EST Gender Identity Female 02/18/2024 8:51 PM EST Sexual Orientation Straight 08/30/2024 2: 43 PM EDT documented as of this encounter Functional Status [...] documented in this encounter Progress Notes * Pardeep San [place] - 12/10/2024 12:09 PM EST Message left on machine for pt to call back. When pt calls back, please ask- does she currently have a w/c? If so, when and who ordered it? Pt will need to be re-evaluated for a new one. * Pardeep San [place] - 11/29/2024 1:08 PM EDT Signed orders hand faxed and scanned to [facility] Orders scanned. * Pardeep San [place] - 11/27/2024 1:56 PM EDT Orders received from [facility]. To PCP for sig documented in this encounter Plan of Treatment Upcoming Encounters Date Type Department Care Team (Late st Contact Info) Description 12/31/2024 11:30 AM EST Office Visit Adult Medicine [address] [phone] Catlaina Velez PA [address] [place], [place] 01/23/2025 2:45 PM EST Office Visit Pulmonology - [place] [address] [place] [address] Nanci Garner, ABDULLAHI [address] [place] [address] 01/25/2025 1:30 PM EST Office Visit Endocrinology [address] [phone] Cely Rosen PA [address] [place] [address] 02/22/2025 10:00 AM EST Consult Adult Medicine [address] [phone] Elizabeth Thrasher MD [address] [place] [address] 03/05/2025 10:30 AM EST Consult Urogynecology - [address] [phone] Soha Win MD 580 [facility] [address] [place] [address] 03/18/2025 1:15 PM EST Hospital Encounter [facility] Main OR [address] [place] [address] Soha Win MD [address] [address] 03/18/2025 1:15 PM EST - 03/18/2025 3:15 PM EST Surgery [facility] Main OR [address] [place] [phone] Soha Win MD [address] [address] IMPLANTATION STIMULATOR BLADDER STAGE 1 [[id number] (CPT )] 04/08/2025 11:45 AM EST Office Visit Urogynecology [address] [phone] Soha Win MD [address] [address] Scheduled Procedures Name Priority Associated Diagnoses Date/Ti me IMPLANTATION STIMULATOR BLADDER STAGE 1 Urge incontinence Urgency of urination 03/18/2025 1:15 PM EST IMPLANTATION STIMULATOR BLADDER STAGE 2 Urge incontinence Urgency of urination 03/18/2025 1:15 PM EST documented as of this encounter Visit Diagnoses Not on filedocumented in this encounter Care Teams Pilot Control Operator Relationship Specialty Start Date End Date Elizabeth Thrasher MD [address] [place] [address] PCP - General Internal Medicine 01/27/15 documented as of this encounter
--- OUTSIDE RECORDS SUMMARY | 2024-12-14 15:44 | XMS_ITS | Encounter Summary ---
Author Organization [facility] Address [address] [place] [address] Care Team Providers Care Osteopathic Medicine Teacher Name Role Phone Elizabeth Thrasher MD Primary Care Provider [phone] Encounter Details Date Type Department Care Team (Late st Contact Info) Description 11/09/2024 Results Follow-Up Adult Medicine [facility] [address] [place], [place] [phone] Catalina Velez PA [address] [place], [place] Social History Tobacco Use Types Packs/Day Years [...] care for your loved ones. For example, children's aide or elderly care for an older adult? [...] Daryn Browning RN documented in this encounter Plan of Treatment Upcoming Encounters Date Type Department Care Team (Late st Contact Info) Description 12/31/2024 11:30 AM EST Office Visit Adult Medicine [address] [phone] Catalina Velez PA [address] [place] [address] 01/23/2025 2:45 PM EST Office Visit Pulmonology [address] [place] [phone] Nanci Garner NP [address] [place] [phone] 01/25/2025 1:30 PM EST Office Visit [address] [phone] Cely Rosen PA [address] [place] [address] 02/22/2025 10:00 AM EST Consult Adult Medicine [address] [phone] Elizabeth Thrasher MD [address] [place] [address] 03/05/2025 10:30 AM EST Consult Urogynecolog[address] [phone] Soha Win MD [address] [address] 03/18/2025 1:15 PM EST Hospital Encounter [facility] OR [address] [place] [phone] Soha Win MD [address] [address] 03/18/2025 1:15 PM EST - 03/18/2025 3:15 PM EST Surgery [facility] OR [address] [place] [phone] Soha Win MD [address] [address] IMPLANTATION STIMULATOR BLADDER STAGE 1 [[id number] (CPT )] 04/08/2025 11:45 AM EST Office Visit Urogynecolog[address] [phone] Soha Win MD [address] [address] Scheduled Procedures Name Priority Associated Diagnoses Date/Ti me IMPLANTATION STIMULATOR BLADDER STAGE 1 Urge incontinence Urgency of urination 03/18/2025 1:15 PM EST IMPLANTATION STIMULATOR BLADDER STAGE 2 Urge incontinence Urgency of urination 03/18/2025 1:15 PM EST documented as of this encounter Visit Diagnoses Not on filedocumented in this encounter Care Teams Osteopathic Medicine Teacher Relationship Specialty Start Date End Date Elizabeth Thrasher MD [address] [place] [address] PCP - General Internal Medicine 01/27/15 documented as of this encounter
--- OUTSIDE RECORDS SUMMARY | 2024-12-14 15:44 | XMS_ITS | Clinical Summary ---
Author Organization [address] Address [address] [place] [phone] Phone Care Team Providers Care Converter Operator Name Role Phone Elizabeth Thrasher MD Primary Care Provider [phone] Allergies Active Allergy Reactions Criticality Noted Date Comments Adhesive 03/25/2021 Amoxicillin-Pot Clavulanate Diarrhea Clarithromycin Nausea And Vomiting 03/16/2006 vomitting Clindamycin 10/04/2023 Other reaction(s): Not available Cyclobenzaprine 10/04/2023 Other reaction(s): Not available Doxycycline 07/16/2022 Empagliflozin 10/04/2023 Other reaction(s): Not available Fluvirin [id number] Neuropathy Haemophilus Influenzae Type B 03/25/2021 Latex 03/16/2006 rash Nitrofurantoin Monohyd/M-Cryst Nausea And Vomiting 01/12/2024 Metformin 04/10/2012 diarrhea Mycophenolate Mofetil 01/13/2022 Nsaids (Non-Steroidal Anti-Inflammatory Drug) 11/19/2010 Interactions with lithium Prednisone High 07/20/2022 Other Reaction(s): OTHER Patient states dellusions, bipolar wade, and thoughts. Phenazopyridine Nausea And Vomiting 01/12/2024 Semaglutide 12/18/2019 Elevated Lipase- not to use another GLP-1 medication per endocrinologyi Super Denture Adhesive Anaphylaxis High 04/28/2022 angioedema Zinc Nausea And Vomiting 10/04/2023 Medications ramelteon (ROZEREM) 8 mg tablet Take 0.5 tablets (4 mg total) by mouth at bedtime. 2023 Active lumateperone (Caplyta) 42 mg capsule 1 capsule (42 mg total) at bedtime. Active lithium (LITHOBID) 300 mg CR tablet 1 tablet (300 mg total) 1 (one) time each day. 2020 Active lithium (ESKALITH) 450 mg CR tablet 1 tablet (450 mg total) at bedtime. 2020 Active lisdexamfetamine (Vyvanse) 60 mg capsule Take 1 capsule (60 mg total) by mouth 1 (one) time each day in the morning. 2022 Active lamoTRIgine (LaMICtal) 200 mg tablet Take 1 tablet (200 mg total) by mouth 2 (two) times a day. Active gabapentin (NEURONTIN) 800 mg tablet Take 1 tablet (800 mg total) by mouth 3 (three) times a day. Active busPIRone (BUSPAR) 15 mg tablet Take 1 tablet (15 mg total) by mouth 2 (two) times a day. 2023 Active azaTHIOprine (IMURAN) 50 mg tablet Take 1 tablet (50 mg total) by mouth 1 (one) time each day. 2023 Active ubrogepant (Ubrelvy) 100 mg tablet 1 (one) time if needed. 2021 Active medical marijuana RUG DESIGNER med Inhale 5 each by mouth 1 (one) time each day if needed. Active cholecalciferol (VITAMIN D-3) 50 mcg (2,000 unit) capsule TAKE 1 CAPSULE BY MOUTH EVERY DAY 90 capsule 1 2024 Active Additional Information Patient not taking.Reported on 10/26/2024 HYDROcodone-acetaminophe n (NORCO) 5-325 mg per tablet Take 1 tablet by mouth 2 (two) times a day. Max Daily Amount: 2 tablets 56 tablet 2024 Active chlorproMAZINE (THORAZINE) 50 mg tablet Take 1 tablet (50 mg total) by mouth. Active chlorproMAZINE (THORAZINE) 10 mg tablet Take 1 tablet (10 mg total) by mouth 1 (one) time each day if needed. Active chlorproMAZINE (THORAZINE) 100 mg tablet Take 1 tablet (100 mg total) by mouth. at bedtime 2024 Active ondansetron (ZOFRAN) 4 mg tabletIndications:Gastro esophageal reflux disease without esophagitis,Irritable bowel syndrome, unspecified type,Gassiness,Nausea Take 1 tablet (4 mg total) by mouth 4 (four) times a day if needed for nausea or vomiting. 60 tablet 6 2024 Active blood sugar diagnostic (FreeStyle Lite Strips) test stripIndications:Type 2 diabetes mellitus with diabetic microalbuminuria, with long-term current use of insulin ([facility] V24, [facility] V28) USE TO CHECK BLOOD SUGAR THREE TIMES DAILY 200 strip 5 2024 Active insulin degludec (Tresiba FlexTouch U-200) 200 unit/mL (3 mL) CONCENTRATED injection pen Inject 50 Units into the skin daily. 45 mL 3 2024 Active clindamycin phosphate (Clindagel) 1 % gel, once daily Apply to affected area TID x 2 weeks 75 mL 1 2024 Active insulin aspart (NovoLOG U-100 Insulin aspart) 100 unit/mL injection Inject 182 Units into the skin daily. INJECT 182 UNITS DIRECTED DAILY WITH INSULIN PUMP 180 mL 1 2024 Active albuterol 2.5 mg /3 mL (0.083 %) nebulizer solutionIndications:Mode rate persistent asthma, unspecified whether complicated Take 3 mL (2.5 mg total) by nebulization every 4 (four) hours if needed for wheezing or shortness of breath (or chest tightness). 75 mL 2 2024 Active Ventolin HFA 90 mcg/actuation inhaler INHALE 2 PUFFS INTO THE LUNGS EVERY 6 HOURS NEEDED FOR COUGH OR WHEEZING OR SHORTNESS OF BREATH OR CHEST TIGHTNESS 18 g 5 2024 Active linaCLOtide (Linzess) 72 mcg capsule Take 1 capsule (72 mcg total) by mouth 1 (one) time each day. 30 capsule 3 2024 Active pantoprazole (PROTONIX) 40 mg EC tablet Take 1 tablet (40 mg total) by mouth 1 (one) time each day before breakfast. Do not crush, chew, or split. Active lisinopriL (PRINIVIL,ZESTRIL) 5 mg tablet Take 1 tablet (5 mg total) by mouth 1 (one) time each day. Active chlorproMAZINE (THORAZINE) 10 mg tablet Take 1 tablet (10 mg total) by mouth 2 (two) times a day. Active erenumab-aooe (Aimovig Autoinjector) 140 mg/mL injection Inject 1 mL (140 mg total) under the skin every 28 (twenty-eight ) days. Active azelastine (ASTELIN) 137 mcg (0.1 %) nasal spray Administer 2 sprays into each nostril 2 (two) times a day. Use in each nostril as directed 1 each 3 2024 Active fluticasone propion-salmeteroL (Advair HFA) 230-21 mcg/actuation inhalerIndications:Moder ate persistent asthma, unspecified whether complicated Inhale 2 puffs by mouth 2 (two) times a day. Rinse mouth with water after use to reduce aftertaste and incidence of candidiasis. Do not swallow. 3 g 4 10/29 Active baclofen (LIORESAL) 10 mg tablet TAKE 1 TABLET(10 MG) BY MOUTH THREE TIMES DAILY 90 tablet 1 2024 Active oxyCODONE (OxyCONTIN) 20 mg 12 hr abuse-deterrent tabletIndications:Chroni c inflammatory demyelinating polyradiculoneuropathy ([facility]/HCC V24, [facility]/HCC V28),Polyneuropathy in other diseases classified elsewhere ([facility] V24) Take 1 tablet (20 mg total) by mouth 2 (two) times a day. Do not crush, chew, or split. Max Daily Amount: 40 mg 56 tablet 2024 Active baclofen (LIORESAL) 10 mg tablet TAKE 1 TABLET(10 MG) BY MOUTH THREE TIMES DAILY 90 tablet 1 12/06 Discontinued oxyCODONE (OxyCONTIN) 20 mg 12 hr abuse-deterrent tabletIndications:Chroni c inflammatory demyelinating polyradiculoneuropathy (CMS/HCC V24, CMS/HCC V28),Polyneuropathy in other diseases classified elsewhere ([facility] V24) Take 1 tablet (20 mg total) by mouth 2 (two) times a day. Do not crush, chew, or split. Max Daily Amount: 40 mg 56 tablet 11/16 Discontinued( Reorder) loperamide (Imodium A-D) 2 mg tablet Take 1 tablet (2 mg total) by mouth 4 (four) times a day if needed for diarrhea for up to 10 days. 30 tablet 11/18 ciprofloxacin (CIPRO) 250 mg tablet Take 1 tablet (250 mg total) by mouth 2 (two) times a day for 5 days. 10 each 11/20 Discontinued( Reorder) oxyCODONE (OxyCONTIN) 20 mg 12 hr abuse-deterrent tabletIndications:Chroni c inflammatory demyelinating polyradiculoneuropathy ([facility] V24, [facility] V28),Polyneuropathy in other diseases classified elsewhere ([facility] V24) Take 1 tablet (20 mg total) by mouth 2 (two) times a day. Do not crush, chew, or split. Max Daily Amount: 40 mg 56 tablet 11/16 Discontinued( Reorder) oxyCODONE (OxyCONTIN) 20 mg 12 hr abuse-deterrent tabletIndications:Chroni c inflammatory demyelinating polyradiculoneuropathy ([facility] V24, [facility] V28),Polyneuropathy in other diseases classified elsewhere ([facility] V24) Take 1 tablet (20 mg total) by mouth 2 (two) times a day. Do not crush, chew, or split. Max Daily Amount: 40 mg 56 tablet 12/14 Discontinued( Reorder) ciprofloxacin (CIPRO) 250 mg tablet Take 1 tablet (250 mg total) by mouth 2 (two) times a day for 5 days. 10 each 11/25 Active Problems Problem Noted Date Diagnosed Date Osteomyelitis of third toe o f left foot ([facility] V24, [facility] V28) 01/25/2024 Cellulitis of foot 01/21/2024 Morbid obesity with BMI of 4 0.0-44.9, adult ([facility] V24, [facility] V28) 11/11/2023 Constipation 11/11/2023 Overlap syndrome ([facility] V24) 11/11/2023 Allergic rhinitis 11/11/2023 Multinodular goiter 05/20/2023 Vitamin D deficiency 12/22/2021 GERD (gastroesophageal reflux disease) Chronic inflammatory demyeli nating polyradiculoneuropathy ([facility] V24, [facility] V28) 03/26/2021 Varicose veins with pain 08/31/2018 Status post amputation of great toe, right ([facility] V24) 06/15/2018 Overview (11/11/2023): Right first toe, osteomyelitis and gangrene 05/26 Allergic rhinitis due to pollen 12/16/2017 Restrictive pattern present on pulmonary functio n testing 12/16/2017 Cranial nerve palsy 09/29/2017 Subclinical hypothyroidism 07/11/2015 Type II diabetes mellitus wi th renal manifestations ([facility] V24, [facility] V28) 04/08/2014 ULISSES (obstructive sleep apnea) 09/19/2013 Overview (11/11/2023): UNTREATED (04/05/23 - cannot get supplies) [facility] Polysomnogram: Date 05/05/2005; Wt 290#; BMI 42; SE 79; AHI 29, REM AHI 70, Central apneas 0; Obstructive apneas 0; Mixed apneas 0; hypopneas 149; average oxygen saturation 96% (lowest 91%) [facility] diagnostic polysomnogram 07/08/2021. Weight 345; BMI 50. AHI 6. REM AHI 29. 37 hypopneas. Average oxygen saturation 87% with oxygen tl 73%. Obstructive sleep apnea-mild overall; moderate in rem sleep with all hypopneas and significant nocturnal hypoxemia based on 2021 diagnostic polysomnogram. Treatment study ordered. Type II diabetes mellitus wi th neurological manifestations ([facility] V24, [facility] V28) 10/18/2012 Necrobiosis lipoidica diabet icorum ([facility] V24, [facility] V28) 04/26/2012 DJD (degenerative joint disease) of knee 012 Overview (11/11/2023): R>L and the patient follows with [facility] and had steroid shot on the right knee on mid 2011 Gout 12/17/2010 DJD of shoulder 03/18/2010 Overview (11/11/2023): Dr Costa did arthroscopic shoulder surgery on 02/12/2010 Microalbuminuria 12/17/2009 Fatty liver 02/19/2009 Polycystic ovary syndrome 09/10/2008 Urge urinary incontinence 09/20/2007 Hidradenitis 01/18/2007 Overview (11/11/2023): Last Assessment & Plan: I explained that there is no evidence of active disease today and that I recommended she continue to follow with Derm as symptomas will likely only improve from now since she has restarted her systemic treatment. She agreed. Assessment & Plan (07/20/2024 12:43 PM EDT): I recommended she use topical clindamycin gel TID for the next two weeks. Due to significant allergies to many antibiotics, called Derm office to get usual regimen. I recommended she follow up with them [facility] to consider some kind of biologic medication as oral abx are hard for her with so many allergies. She agreed. Asthma 08/12/2006 Hyperlipidemia 05/12/2006 Polyneuropathy in other dise ases classified elsewhere ([facility] V24) 03/16/2006 Overview (11/11/2023): h/o chronic inflamatory polyneuropathy and diabetic neuropathy. Sees Dr. Cabello. Onset CIDP at age 21 Rx with plasmapheresis, IV Ig. ON 2011 DEVELOPED RIGHT DROP FOOT Bipolar disorder ([facility] V24, [facility] V28) 08/2006 Amputation of toe ([facility] V24) Overview (02/07/2024): Right first toe, osteomyelitis and gangrene 05/26 Encounters Date Type Department Care Team Description 11/27/2024 Telephone Adult Medicine [address] [phone] Elizabeth Thrasher MD 11/23/2024 Telephone Adult Medicine [address] [phone] Elizabeth Thrasher MD 11/15/2024 Telephone Adult Medicine [address] [phone] Elizabeth Thrasher MD 11/13/2024 Telephone Pulmonology [address] [phone] Nanci Biswas NP 11/09/2024 Results Follow-Up Adult [address] [phone] Catalina Velez PA 11/09/2024 Results Follow-Up Adult [address] [phone] Catalina Griggs PA 11/09/2024 Results Follow-Up Endocrinology [address] [phone] Cely Rosen PA 11/08/2024 11:30 AM EDT Office Visit [address] [phone] Catalina Griggs PA Dysuria (Primary Dx); Urge urinary incontinence 11/07/2024 Telephone Gastroenterology [address] [phone] Pratibha Dimas PA 11/01/2024 Telephone Pulmonology [address] [phone] Nanci Biswas NP 10/31/2024 Telephone Pulmonology [address] [phone] Mary Carmen Larsen MA 10/30/2024 Telephone Endocrinology [address] [phone] Cely Rosen PA 10/26/2024 11:30 AM EDT Office Visit Endocrinology [address] [phone] Cely Rosen PA Type 2 diabetes mellitus with diabetic microalbuminuria, with long-term current use of insulin ([facility] V24, [facility] V28) (Primary Dx); Microalbuminuria; Mixed hyperlipidemia; Multinodular goiter 10/24/2024 4:25 PM EDT Office Visit Pulmonology - [place] [address] [phone] Nanci Biswas NP Moderate persistent asthma, unspecified whether complicated (Primary Dx); ULISSES (obstructive sleep apnea); Gastroesophageal reflux disease, unspecified whether esophagitis present; Bipolar affective disorder, remission status unspecified ([facility] V24, [facility] V28); Chronic inflammatory demyelinating polyradiculoneuropathy ([facility] V24, [facility] V28); Morbid obesity with BMI of 40.0-44.9, adult ([facility] V24, [facility] V28) 10/24/2024 Telephone Adult Medicine [address] [phone] Elizabeth Thrasher MD 10/23/2024 Telephone Urogynecology [address] [place] [phone] Soha Win MD 10/01/2024 Telephone Adult Medicine [address] [phone] Lelo Segal MA 10/01/2024 Telephone Gastroenterology [address] [phone] Lashaun Siu NP 09/28/2024 12:45 PM EDT Office Visit Adult Medicine [address] [phone] Elizabeth Thrasher MD Acute otitis media, unspecified otitis media type (Primary Dx); Type II diabetes mellitus with neurological manifestations ([facility] V24, [facility] V28); Type 2 diabetes mellitus with diabetic microalbuminuria, with long-term current use of insulin ([facility] V24, [facility] V28); Mixed hyperlipidemia; Moderate persistent asthma, unspecified whether complicated; Chronic inflammatory demyelinating polyradiculoneuropathy ([facility] V24, [facility] V28) 09/26/2024 Telephone Adult Medicine [address] [phone] Elizabeth Thrasher MD 09/20/2024 Nurse Triage [address] [phone] Elizabeth Thrasher MD 09/14/2024 4:33 PM EDT - 09/14/2024 11:59 PM EDT Hospital Encounter Xray - [address] [phone] Acute cough Discharge Disposition: Home or Self Care 09/14/2024 4:15 PM EDT Office Visit Walk-In Clinic - [address] [phone] Cassie Ingram NP Acute cough (Primary Dx); Bacterial URI 09/14/2024 Nurse Triage [address] [phone] Elizabeth Thrasher MD 09/14/2024 Telephone Urogynecology - [address] [phone] Soha Win MD from Last 3 Months Immunizations Immunization Administration Dates Next Due Pfizer SARS-CoV-2 COVID-19, mRNA, LNP-S, preservative free 02/16/2021,05/27/2020,05/04/2020 Pneumococcal conjugate 13 va lent (Prevnar 13, PCV13) 2mo and older 04/02/2015 Pneumococcal polysaccharide 23 valent (Pneumovax 23) 2yo and older 06/22/2017 Td Tetanus diptheria (Tdvax) 7yo and older 06/22 Tdap Tetanus diptheria acell ular pertussis (Boostrix; Adacel) 7yo and older 10/26/2014,10/13/2006 Surgical History Surgery Date Site/Laterality Comments OTHER SURGICAL HISTORY left knee - lateral release LAPAROSCOPIC GASTRIC BANDING 12/09/2008 WISDOM TOOTH EXTRACTION OTHER SURGICAL HISTORY hist shoulder surgery BREAST BIOPSY OTHER SURGICAL HISTORY right first toe amputation TOTAL KNEE ARTHROPLASTY COLPORRHAPHY APPENDECTOMY TOE SURGERY IR PORT A CATH PLACEMENT Right upper chest/ power port Medical History Medical History Date Comments Polyneuropathy in other dise ases classified elsewhere ([facility] V24) 03/16/2006 : h/o chronic infla matory polyneuropathy and diabetic neuropathy. Bipolar I disorder, most rec ent episode (or current) manic, mild ([facility] V24, [facility] V28) 03/16/2006 DM (diabetes mellitus), type 2 with renal complications ([facility] V24, [facility] V28) 04/08/2014 Microalbuminuria 12/17/2009 Hypothyroidism 07/11/2015 not medicated Cranial nerve palsy 09/29/2017 Toe amputation status 06/15/2018 Right firs t toe, osteomyelitis and gangrene 05/26 Constipation Esophageal reflux History of gastric surgery Asthma Cervical spondylosis without myelopathy Depressive disorder Hyperlipidemia Vitamin D deficiency 12/22/2021 Dysphagia Irritable bowel syndrome Anemia slight not medic ated Anxiety Chronic pain disorder Bipolar 1 disorder, mixed, s evere ([facility] V24, [facility] V28) Arthritis Joint pain Tardive dyskinesia Neuromuscular disorder ([facility] V24, [facility] V28) diabetic neuropathy Chronic inflammatory demyeli nating neuropathy ([facility] V24, [facility] V28) Family History Medical History Relation Name Comments Pancreatic cancer Maternal Grandfather Other: skin cancer Mother Breast cancer Other m 2nd cousin 50 Colon cancer Neg Hx Ovarian cancer Neg Hx Prostate cancer Neg Hx Uterine cancer Neg Hx Relation Name Status Comments Maternal Grandfather Mother Other m 2nd cousin 50 Social History Tobacco Use Types Packs/Day Years Used Date Smoking Tobacco: Former Cigarettes Q uit: 10/08/2022 Smokeless Tobacco: Never Tobacco Cessation:Counseling Given: Not Answered Alcohol Use Standard Drinks/Week Comments No 0 [...] for your loved ones. For example, child care sitter or elderly care for an older adult? [...] Orientation Straight 08/30/2024 2: 43 PM EDT Obstetrics History Para Term AB IAB SAB Ectopic Multiple Livin g Live Births 0 0 0 0 0 0 0 0 Last Filed Vital Signs Vital Sign Reading Time Taken Comments Blood Pressure 136/74 11/08/2024 11:37 AM EDT Pulse 88 11/08/2024 11:37 AM EDT Temperature 35.9 C (96.7 F) 11/08/2024 11:37 AM EDT Respiratory Rate 18 09/28/2024 12:45 PM EDT Oxygen Saturation 98% 11/08/2024 11:37 AM EDT Inhaled Oxygen Concentration - - Weight 135 kg (297 lb 3.2 oz) 11/08/2024 11:37 A M EDT Height 177.8 cm (5' 10 ) 11/08/2024 11:37 AM EDT Body Mass Index 42.64 11/08/2024 11:37 AM EDT Plan of Treatment Upcoming Encounters Date Type Department Care Team (Late st Contact Info) Description 12/31/2024 11:30 AM EST Office Visit Adult Medicine [address] [phone] Catalina Velez PA [address] [place] [address] 01/23/2025 2:45 PM EST Office Visit Pulmonology - [address] [place] [phone] Nanci Garner NP [address] [place] [phone] 01/25/2025 1:30 PM EST Office Visit Endocrinology [address] [phone] Cely Rosen PA [address] [place] [address] 02/22/2025 10:00 AM EST Consult Adult Medicine [address] [phone] Elizabeth Thrasher MD [address] [place] [address] 03/05/2025 10:30 AM EST Consult Urogynecolog[address] [phone] Soha Win MD [address] [address] 03/18/2025 1:15 PM EST Hospital Encounter [facility] [place] [address] [place] [phone] Soha Win MD [address] [address] 03/18/2025 1:15 PM EST - 03/18/2025 3:15 PM EST Surgery [facility] [place] [address] [place] [phone] Soha Win MD [address] [phone] IMPLANTATION STIMULATOR BLADDER STAGE 1 [80309 (CPT )] 04/08/2025 11:45 AM EST Office Visit Urogynecolog[address] [phone] Soha Win MD [address] [phone] Scheduled Procedures Name Priority Associated Diagnoses Date/Ti me IMPLANTATION STIMULATOR BLADDER STAGE 1 Urge incontinence Urgency of urination 03/18/2025 1:15 PM EST IMPLANTATION STIMULATOR BLADDER STAGE 2 Urge incontinence Urgency of urination 03/18/2025 1:15 PM EST Health Maintenance Due Date Last Done Comments Colorectal Cancer Screening: Colonoscopy 1975 Hepatitis B Vaccines (1 of 3 - 19+ 3-dose series) 05/25/1994 HIV Screening 01/15/2022 Hepatitis C Screening 01/15/2022 Medicare Annual Wellness Visit 01/15/2022 Pneumococcal Vaccine: Pediatrics (0 to 5 Years) and At-Risk Patients (6 to 49 Years) (3 of 3 - PCV20 or PCV21) 06/22/2022 06/22/2017, 04/02/2015 Breast Cancer Screening 09/20/2022 09/20/2020, 11/20 Depression Screening 02/08/2024 COVID-19 Vaccine (5 - Pfizer risk season) 2024 11/06/2023, 02/16/2021, 05/27/2020, Additional history exists Influenza Vaccine (#1) 2024 Diabetes: Annual Foot Exam 01/20/202501/20, 09/22/2023, 06/08/2023 Social Influencers of Health Screening 01/21/2025 01/22/2024 Diabetes: Blood Sugar Control Test (HGBA1C) 05/09/2025 11/08/2024, 08/09/2024, 01/22/2024, Additional history exists Diabetes: Annual Retina Eye Exam 07/25/2025 07/25/2024 Diabetes: Annual GFR (Glomerular Filtration Rate) 08/09/2025 08/09/2024, 08/02/2024, 08/01/2024, Additional history exists Diabetes: Annual Urine Albumin-Creatinine Ratio (uACR) 11/08/2025 11/08/2024, 06/28/2022 DTaP,Tdap,and Td Vaccines (4 - Td or Tdap) 06/23/2027 06/22/2017, 10/26/2014, 10/13/2006 Cervical Cancer Screening: HPV 07/17/2027 07/16/2022 Cholesterol Screening (Lipid Panel) 08/09/2029 08/09/2024, 06/08/2023, 06/08/2023 RSV Immunization Adult Patients (1 - 1-dose 75+ series) 05/25/2050 HIB Vaccines Aged Out No longer eligi ble based on patient's age to complete this topic HPV Vaccines Aged Out No longer eligi ble based on patient's age to complete this topic Hepatitis A Vaccines Aged Out No long er eligible based on patient's age to complete this topic IPV Vaccines Aged Out No longer eligi ble based on patient's age to complete this topic MMR Vaccines Aged Out No longer eligi ble based on patient's age to complete this topic Meningococcal ACWY Vaccine Aged Out N o longer eligible based on patient's age to complete this topic Meningococcal B Vaccine Aged Out No l onger eligible based on patient's age to complete this topic RSV Immunization Patients Under 20 months Aged Out No longer eligible based on patient's age to complete this topic Varicella Vaccines Aged Out No longer eligible based on patient's age to complete this topic Procedures Procedure Name Priority Date/Time Associated Diagnosis Comments URINALYSIS WITH REFLEX MICROSCOPIC Routine 11/08/2024 12:00 PM EDT Dysuria MICROALBUMIN CREATININE URINE RATIO Routine 11/08/2024 12:00 PM EDT Type II diabetes mellitus with neurological manifestations ([facility] V24, [facility] V28) Microalbuminuria Type 2 diabetes mellitus with diabetic microalbuminuria, with long-term current use of insulin ([facility] V24, [facility] V28) HEMOGLOBIN A1C Routine 11/08/2024 12:00 PM EDT Type 2 diabetes mellitus with diabetic microalbuminuria, with long-term current use of insulin ([facility] V24, [facility] V28) URINALYSIS WITH REFLEX MICROSCOPIC Routine 11/08/2024 12:00 PM EDT Dysuria CULTURE URINE Routine 11/08/2024 12:00 PM EDT Dysuria POC RAPID [id number], MOLECULAR Routine 09/14/2024 5:24 PM EDT Acute cough XR CHEST 2 VIEWS STAT 09/14/2024 4:42 PM EDT Acute cough COMPREHENSIVE METABOLIC PANEL Routine 08/09/2024 10:26 AM EDT Chronic inflammatory demyelinating polyradiculoneuropathy ([facility] V24, [facility] V28) Polyneuropathy in other diseases classified elsewhere ([facility] V24) Opioid contract exists Encounter for screening mammogram for malignant neoplasm of breast Colon cancer screening Type II diabetes mellitus with neurological manifestations ([facility] V24, [facility] V28) Moderate persistent asthma, unspecified whether complicated Bipolar affective disorder, remission status unspecified ([facility] V24, [facility] V28) Hidradenitis Status post amputation of great toe, right ([facility] V24) ULISSES (obstructive sleep apnea) Microalbuminuria Gastroesophageal reflux disease, unspecified whether esophagitis present Vitamin D deficiency Type 2 diabetes mellitus with diabetic microalbuminuria, with long-term current use of insulin ([facility] V24, [facility] V28) Subclinical hypothyroidism Mixed hyperlipidemia Morbid obesity with BMI of 40.0-44.9, adult ([facility] V24, [facility] V28) Skin ulcer of third toe of left foot with fat layer exposed ([facility] V24, [facility] V28) LIPID PANEL WITH REFLEX TO DIRECT LDL Routine 08/09/2024 10:26 AM EDT Mixed hyperlipidemia DIABETES FOOT EXAM Routine 06/08/2023 HPV Routine 07/16/2022 SCREENING MAMMOGRAPHY BI 2-VIEW BREAST INC CAD Routine 09/20/2020 3:13 PM EDT Encounter for screening mammogram for malignant neoplasm of breast from Last 3 Months or Most Recently Relevant to Health Maintenance Results * (ABNORMAL) Urinalysis with reflex microscopic (11/08/2024 12:00 PM EDT) Specific [place] Urine 1.006 1.003 - 1.030 LAB URINALYSIS - AUTOMATED METHOD 11/08/2024 2:10 PM EDT [facility] pH, Urine 7.5 5.0 - 8.0 pH LAB URINALYSIS - AUTOMATED METHOD 11/08/2024 2:10 PM [facility] Leukocytes, Urine Moderate(A) Negative LAB URINALYSIS - AUTOMATED METHOD 11/08/2024 2:10 PM [facility] Nitrite, Urine Negative Negative LAB URINALYSIS - AUTOMATED METHOD 11/08/2024 2:10 PM [facility] Protein, Urine Negative <=Trace mg/dL LAB URINALYSIS - AUTOMATED METHOD 11/08/2024 2:10 PM [facility] Glucose, Urine Negative Negative mg/dL LAB URINALYSIS - AUTOMATED METHOD 11/08/2024 2:10 PM [facility] Ketones, Urine Negative Negative mg/dL LAB URINALYSIS - AUTOMATED METHOD 11/08/2024 2:10 PM [facility] Urobilinogen , Urine 0.2 0.2 - 1.0 mg/dL LAB URINALYSIS - AUTOMATED METHOD 11/08/2024 2:10 PM [facility] Bilirubin, Urine Negative Negative LAB URINALYSIS - AUTOMATED METHOD 11/08/2024 2:10 PM [facility] Blood, Urine Negative Negative LAB URINALYSIS - AUTOMATED METHOD 11/08/2024 2:10 PM [facility] RBC, Urine 2.7 0 - 4 /HPF LAB URINALYSIS - AUTOMATED METHOD 11/08/2024 2:10 PM [facility] WBC, Urine 37.1(H) 0 - 4 /HPF LAB URINALYSIS - AUTOMATED METHOD 11/08/2024 2:10 PM [facility] Squamous Epithelial, Urine 45 0 - 60 /LPF LAB URINALYSIS - AUTOMATED METHOD 11/08/2024 2:10 PM [facility] Bacteria, Urine Many(A) Negative /HPF LAB URINALYSIS - AUTOMATED METHOD 11/08/2024 2:10 PM EDT [facility] Hyaline Casts, Urine 0.4 0 - 3 /LPF LAB URINALYSIS - AUTOMATED METHOD 11/08/2024 2:10 PM EDT [facility] Urine Urine specimen obtained by clean catch procedure / Unknown Non-blood Collection / Unknown 11/08/2024 12:00 PM EDT 11/08/2024 12:00 PM EDT us Catalina MARTINEZ LAB URINE ORDERABLES Final Re sult Performing Organization Address City/[facility]/ZIP Co de Phone Number [facility] [address] [place] [address], [place] [phone] * (ABNORMAL) Microalbumin creatinine urine ratio (11/08/2024 12:00 PM EDT) Creatinine, Urine 23.0 mg/dL LAB CHEMISTRY METHOD 11/08/2024 4:39 PM EDT [facility] Microalb, Ur 53.9(H) 0.0 - 29.0 mg/L LAB CHEMISTRY METHOD 11/08/2024 4:39 PM EDT [facility] Microalb/Crea t Ratio 234(H) <30 mg/g creat LAB CHEMISTRY METHOD 11/08/2024 4:39 PM EDT [facility] Urine Urine specimen from urethra / Unknown Non-blood Collection / Unknown 11/08/2024 12:00 PM EDT 11/08/2024 12:00 PM EDT us Catalina MARTINEZ LAB URINE ORDERABLES Final Re sult Performing Organization Address City/[facility]/ZIP Co de Phone Number [facility] [address] [place] [address], [place] [phone] * (ABNORMAL) Culture urine (11/08/2024 12:00 PM EDT) Culture, Urine >=100,000 CFU/mL Escherichia coli(A) MARCELLO 11/10/2024 10:48 AM EDT [facility] Urine Urine specimen obtained by clean catch procedure / Unknown Non-blood Collection / Unknown 11/08/2024 12:00 PM EDT 11/08/2024 12:00 PM EDT Narrative Organism Antibiotic Method Susceptibility Escherichia coli Amoxicillin/Clavulanate MARCELLO >=32 ug/ml: Resistant Escherichia coli Ampicillin/Sulbactam MARCELLO >=32 ug/ml: Resistant Escherichia coli Piperacillin/Tazobactam MARCELLO 64 ug/ml: Resistant Escherichia coli Cefazolin (Urine) MARCELLO 8 ug/ml: Susceptible Escherichia coli Cefoxitin MARCELLO <=4 ug/ml: Susceptible Escherichia coli Ceftazidime MARCELLO <=0.5 ug/ml: Susceptible Escherichia coli Ceftriaxone MARCELLO <=0.25 ug/ml: Susceptible Escherichia coli Cefepime MARCELLO <=0.12 ug/ml: Susceptible Escherichia coli Meropenem MARCELLO <=0.25 ug/ml: Susceptible Escherichia coli Amikacin MARCELLO 4 ug/ml: Susceptible Escherichia coli Gentamicin MARCELLO <=1 ug/ml: Susceptible Escherichia coli Ciprofloxacin MARCELLO <=0.06 ug/ml: Susceptible Escherichia coli Levofloxacin MARCELLO <=0.12 ug/ml: Susceptible Escherichia coli Nitrofurantoin MARCELLO <=16 ug/ml: Susceptible Escherichia coli Trimethoprim/Sulfamethoxazole MARCELLO >=320 ug/ml: Resistant Catalina MARTINEZ LAB MICROBIOLOGY - GENERAL OR DERABLES Final Result [facility] [address] [place] [address], * (ABNORMAL) Hemoglobin A1c (11/08/2024 12:00 PM EDT) Hemoglobin A1C 6.8(H) <6.5 % LAB CHEMISTRY METHOD 11/08/2024 10:21 PM EDT [facility] Mean Bld Glu Estim. 148 mg/dL LAB CHEMISTRY METHOD 11/08/2024 10:21 PM EDT [facility] Blood Venous blood specimen / Unknown Venipuncture / Unknown 11/08/2024 12:00 PM EDT 11/08/2024 12:00 PM EDT Cely MARTINEZ LAB BLOOD ORDERABLES Final Result [facility] [address] [place] [address], [place] [phone] * Poc Rapid [id number], MOLECULAR (09/14/2024 5:24 PM EDT) COVID-19/SARS- COV-2 Rapid POC Negative Negative Internal Control Pass Yes Yes Swab Nasopharyngeal structure / Unknown 09/14/2024 5:24 PM EDT Cassie Ingram NP POINT OF CARE TEST ENTER/EDIT ORDERABLES Final Result * XR Chest 2 Views (09/14/2024 4:42 PM EDT) Anatomical Region Laterality Modality Body Radiographic Annemarie ging 09/14/2024 4:51 PM EDT Impressions 09/14/2024 4:52 PM EDT 1. No acute cardiopulmonary process. 2. Prominent gas-filled loops of bowel overlie the right abdomen. This appears to be grossly stable from multiple prior examinations -------- FINAL REPORT -------- Dictated By: Maria R Jacobs Dictated Date: 09/14/2024 16:51 ET Assigned Physician: Maria R Jacobs Reviewed and Electronically Signed By: Maria R Jacobs Signed Date: 09/14/2024 16:52 ET Workstation ID: [id number] Transcribed By: Self Edit Transcribed Date: 09/14/2024 16:51 ET Narrative 09/14/2024 4:52 PM EDT HISTORY: cough TECHNIQUE: PA and lateral radiographs of the chest COMPARISON: Chest radiograph from 05/14/2020, chest radiograph from 04/08/2020 and 07/18/2019 FINDINGS: There is a normal cardiomediastinal silhouette. The lungs are clear. The osseous structures are intact. A right port is present. Prominent gas-filled loops of bowel overlying the right abdomen. Procedure Note Maria R Jacobs MD - 09/14/2024 HISTORY: cough TECHNIQUE: PA and lateral radiographs of the chest COMPARISON: Chest radiograph from 05/14/2020, chest radiograph from 04/08/2020nd 07/18/2019 FINDINGS: There is a normal cardiomediastinal silhouette. The lungs are clear. Theosseous structures are intact. A right port is present. Prominentgas-filled loops of bowel overlying the right abdomen. IMPRESSION: 1. No acute cardiopulmonary process. 2. Prominent gas-filled loops of bowel overlie the right abdomen. Thisappears to be grossly stable from multiple prior examinations -------- FINAL REPORT -------- Dictated By: Maria R Jacobs Dictated Date: 09/14/2024 16:51 ET Assigned Physician: Maria R Jacobs Reviewed and Electronically Signed By: Maria R Jacobs Signed Date: 09/14/2024 16:52 ET Workstation ID: [id number] Transcribed By: Self Edit Transcribed Date: 09/14/2024 16:51 ET Cassie Ingram NP IMG XR PROCEDURES Final Result * (ABNORMAL) Lipid panel with reflex to direct LDL (08/09/2024 10:26 AM EDT) Cholesterol 126 0 - 200 mg/dL LAB CHEMISTRY METHOD 08/09/2024 4:32 PM EDT [facility] Triglycerides 160(H) 0 - 150 mg/dL LAB CHEMISTRY METHOD 08/09/2024 4:32 PM EDT [facility] HDL 36(L) >=40 mg/dL LAB CHEMISTRY METHOD 08/09/2024 4:32 PM EDT [facility] LDL Calculated 58 0 - 100 mg/dL LAB CHEMISTRY METHOD 08/09/2024 4:32 PM EDT [facility] VLDL Cholesterol Madi 32 mg/dL LAB CHEMISTRY METHOD 08/09/2024 4:32 PM [facility] Non HDL Chol. (LDL+VLDL) 90 <145 mg/dL LAB CHEMISTRY METHOD 08/09/2024 4:32 PM [facility] Chol/HDL Ratio 3.5 0.0 - 4.4 LAB CHEMISTRY METHOD 08/09/2024 4:32 PM [facility] Blood Venous blood specimen / Unknown Venipuncture / Unknown 08/09/2024 10:26 AM EDT 08/09/2024 10:26 AM EDT us Catalina MARTINEZ LAB BLOOD ORDERABLES Final Re sult [facility] [address] [place] [address], [place] [phone] * (ABNORMAL) Comprehensive metabolic panel (08/09/2024 10:26 AM EDT) Sodium 134 133 - 145 mmol/L LAB CHEMISTRY METHOD 08/09/2024 4:32 PM [facility] Potassium 4.4 3.5 - 5.5 mmol/L LAB CHEMISTRY METHOD 08/09/2024 4:32 PM [facility] Chloride 102 96 - 110 mmol/L LAB CHEMISTRY METHOD 08/09/2024 4:32 PM [facility] CO2 25 21 - 32 mmol/L LAB CHEMISTRY METHOD 08/09/2024 4:32 PM [facility] Anion Gap 7 3 - 11 LAB CHEMISTRY METHOD 08/09/2024 4:32 PM [facility] Glucose 143(H) 70 - 100 mg/dL LAB CHEMISTRY METHOD 08/09/2024 4:32 PM [facility] BUN 12 5 - 25 mg/dL LAB CHEMISTRY METHOD 08/09/2024 4:32 PM [facility] Creatinine 0.81 0.50 - 1.10 mg/dL LAB CHEMISTRY METHOD 08/09/2024 4:32 PM [facility] eGFR 89 >=60 mL/min/1. 73m2 LAB CHEMISTRY METHOD 08/09/2024 4:32 PM [facility] Comment:Calculation based on the Chronic Kidney Disease Epidemiology Collaboration (CKD-EPI) equation refit without adjustment for race. BUN/Creatinine Ratio 14.8 LAB CHEMISTRY METHOD 08/09/2024 4:32 PM [facility] Calcium 9.7 8.5 - 10.5 mg/dL LAB CHEMISTRY METHOD 08/09/2024 4:32 PM [facility] AST (SGOT) 22 10 - 42 unit/L LAB CHEMISTRY METHOD 08/09/2024 4:32 PM [facility] ALT (SGPT) 21 10 - 60 unit/L LAB CHEMISTRY METHOD 08/09/2024 4:32 PM [facility] Alkaline Phosphatase 87 42 - 121 unit/L LAB CHEMISTRY METHOD 08/09/2024 4:32 PM [facility] Total Protein 8.9(H) 6.0 - 8.0 g/dL LAB CHEMISTRY METHOD 08/09/2024 4:32 PM [facility] Albumin 3.0(L) 3.2 - 5.0 g/dL LAB CHEMISTRY METHOD 08/09/2024 4:32 PM [facility] Total Bilirubin 0.2 0.0 - 1.4 mg/dL LAB CHEMISTRY METHOD 08/09/2024 4:32 PM [facility] Blood Venous blood specimen / Unknown Venipuncture / Unknown 08/09/2024 10:26 AM EDT 08/09/2024 10:26 AM EDT us Catalina MARTINEZ LAB BLOOD ORDERABLES Final Re sult [facility] [address] [place] [address], * Diabetes Foot Exam (06/08/2023) Diabetes: Annual Foot Exam abstracted Historical Provider HEALTH MAINTENANCE Final Result * Cervical Cancer Screening: HPV (07/16/2022) Cervical Cancer Screening: HPV abstracted us Historical Provider MD HEALTH MAINTENANCE Final Result * SCREENING MAMMOGRAPHY BI 2-VIEW BREAST INC CAD (09/20/2020 3:13 PM EDT) Anatomical Region Laterality Modality Radiographic Annemarie ging 05/14/2020 3:39 PM EDT Narrative 09/22/2020 6:07 PM EDT This is a summary report. The complete report is available in the patient's medical record. If you cannot access the medical record, please contact the sending organization for a detailed fax or copy. Exam: Screening mammogram Findings: Digital bilateral full-field screening mammography is performed with tomosynthesis and interpreted with the aid of computer-aided detection. Comparison is made with 11/20/2016 and as far back as 11/12/2015. Difficulty positioning for imaging due to patient body habitus and limited mobility and the images obtained are the best possible. Breast parenchyma is composed of scattered fibroglandular densities. No new suspicious mass, architectural distortion, or suspicious calcifications. Impression: No mammographic evidence of malignancy. BI-RADS 1 - negative Procedure Note Ursula Hannon MD - 01/26/2022 This is a summary report. The complete report is available in thepatient's medical record. If you cannot access the medical record, pleasecontact the sending organization for a detailed fax or copy. Exam: Screening mammogram Findings: Digital bilateral full-field screening mammography is performedwith tomosynthesis and interpreted with the aid of computer-aideddetection. Comparison is made with 11/20/2016 and as far back as1. Difficulty positioning for imaging due to patient body habitusand limited mobility and the images obtained are the best possible. Breast parenchyma is composed of scattered fibroglandular densities. Nonew suspicious mass, architectural distortion, or suspiciouscalcifications. Impression: No mammographic evidence of malignancy. BI-RADS 1 - negative Elizabeth Thrasher MD IMG XR PROCEDURES Final Result from Last 3 Months or Most Recently Relevant to Health Maintenance Insurance [facility] Member Subscriber Plan / Payer (Ef fective 2021-Present) Name:KIAH ARCHER Relation to Subscriber:Self Name:Kiah Archer Payer ID:[id number] Group ID:[id number] Type:Not on file Address: [place] [address] [address] [phone] Advance Directives Documents on File Type Date Recorded Patient Stretching Machine Tender Frame Expl anation Health Care Decision (hx) 08/01/2023 AD WRAY DIRECTIVE Health Care Decision (hx) 08/01/2023 AD WRAY DIRECTIVE Health Care Decision (hx) 08/01/2023 AD WRAY DIRECTIVE * Full Code - Default (Latest Code Status on File) Date Activated Date Inactivated Comments 01/21/2024 5:41 PM 01/25/2024 7:07 PM This is or jose is used when code status has not been discussed with the patient, or code status is otherwise unknown/unconfirmed To update the patient's code status, place a code status order. Do not modify or discontinue any currently active code status orders. Healthcare Agents on File Name Relationship Healthcare Agent Relationship Communication Jose Archer Partner Health Care Agent Care Teams Converter Operator Relationship Specialty Start Date End Date Elizabeth Thrasher MD [address] [place] [address] PCP - General Internal Medicine 01/27/15
--- OUTSIDE RECORDS SUMMARY | 2024-12-14 15:44 | XMS_ITS | Encounter Summary ---
Author Organization [facility] Address [address] [place] [address] Care Team Providers Care Regional Recruiter Name Role Phone Elizabeth Thrasher MD Primary Care Provider [phone] Encounter Details Date Type Department Care Team (Late st Contact Info) Description 04/04/2024 Billing Patient Not Present Adult Medicine [facility] [address] [place], [place] [phone] Elizabeth Thrasher MD [address] [place] [phone] Social History Tobacco Use Types Packs/Day Years [...] for your loved ones. For example, child adolescent psychiatrist or elderly care for an older adult? [...] 01/22/2024 Verbal Abuse Unrecognized value 01/22/2024 Comments Unknown Sex and Gender Information [...] of Assessment Author No 02/18/2024 9:37 PM Christine Browning RN * Do you have serious [...] 11:30 AM EST Office Visit Adult Medicine [address] [phone] Catalina Velez PA [address] [place] [address] 01/23/2025 2:45 PM EST Office Visit Pulmonology [address] [phone] Nanci Garner NP [address] [place] [address] 01/25/2025 1:30 PM EST Office Visit [address] [phone] Cely Rosen PA [address] [place] [address] 02/22/2025 10:00 AM EST Consult Adult Medicine [address] [phone] Elizabeth Thrasher MD [address] [place] [address] 03/05/2025 10:30 AM EST Consult Urogynecolog[address] [phone] Soah Win MD [address] [address] 03/18/2025 1:15 PM EST Hospital Encounter [facility] Main OR [address] [place] [phone] Soha Win MD [address] [address] 03/18/2025 1:15 PM EST - 03/18/2025 3:15 PM EST Surgery [facility] OR [address] [place] [phone] Soha Win MD [address] [address] IMPLANTATION STIMULATOR BLADDER STAGE 1 [[id number] (CPT )] 04/08/2025 11:45 AM EST Office Visit Urogynecolog[address] [phone] Soha Win MD [address] [address] Scheduled Procedures Name Priority Associated Diagnoses Date/Ti me IMPLANTATION STIMULATOR BLADDER STAGE 1 Urge incontinence Urgency of urination 03/18/2025 1:15 PM EST IMPLANTATION STIMULATOR BLADDER STAGE 2 Urge incontinence Urgency of urination 03/18/2025 1:15 PM EST documented as of this encounter Visit Diagnoses Not on filedocumented in this encounter Care Teams Regional Recruiter Relationship Specialty Start Date End Date Elizabeth Thrasher MD [address] [place] [address] PCP - General Internal Medicine 01/27/15 documented as of this encounter
--- OUTSIDE RECORDS SUMMARY | 2024-12-14 15:44 | XMS_ITS | Clinical Summary ---
[facility] Address [address] [place] [address] Care Team Providers Care Crystal Growing Technician Name Role Phone Elizabeth Thrasher MD Primary Care Provider [phone] Allergies Active Allergy Reactions Criticality Noted Date [...] 06/22/2022 06/22/2017, 04/02/2015 COVID-19 Vaccine (4 - 2024-2 6 season) 2024 02/16/2021, 05/27/2020, 05/04/2020 Influenza Vaccine (#1) 2024 DTap / Tdap / Td (4 - Td or Tdap) 06/23/2027 06/22/2017, 10/26/2014, 10/13/2006 RSV Ped < 20 months Aged Out No longe r eligible based on patient's age to complete this topic Care Teams Crystal Growing Technician Relationship Specialty Start Date End Date Elizabeth Thrasher MD PCP - General Internal Medicine 03/25/21
--- OUTSIDE RECORDS SUMMARY | 2024-12-14 15:44 | XMS_ITS | Data Portability ---
Author Organization [place] - [facility], Allergy Address [address] [place] [address] Care Team Providers Care Apartment Locator Name Role Phone CONCHIS CLARKE Primary Care Provider Assessment Encounter Date Assessment Date Assessment LastModified by Organization Details LastModified Time 09/02/2023 09/02/2023 48-year-old frantz oliveira presents for reevaluation. CT scan was reviewed with patient. She should continue to follow with her instrument operator regarding thyroid nodule. This does not fully [...] as needed in regards to this issue. Not available 09/02/2023 14:17:00 Plan of Treatment Reminders Order Date Submit Date Provider Last Modified By Organization Details Last Modified Time Details Appointments None recorded. Lab None recorded. Referral None recorded. Procedures None recorded. Surgeries None recorded. Imaging [place], modified barium swallow study 2023 024 [facility], [address] [facility], [place], [address], 10:40:53 Medication Orders None recorded. Patient TargetsNo targets recorded. Patient InstructionsNo instructions recorded. Reason for Referral None Reported. Results Created Date Observation Date Name Description Value Unit Range Abnormal Flag Note LastModifiedBy Organization Detail LastModifiedTime 08/10/19 24 08/09/2023 CT, neck, soft tissu e, w/ contr ast No observ ation record ed. [email or web address] [facility] [address] [facility] [address], [place], [address], 08/17/2023 12:59:37 09/05/19 audio gram No observ ation record ed. [email or web address] Not Available 08/08 09:33:37 12/06/19 24 12/06/2023 chest xr [facility] Diagn[facility] stic Imagin g Depart [address] [address] [phone] ____ Alivia t: DOMI DURAN /Age/S ex: 1975 - 48 - F Unit#: [id number] Locati on/Sta tus: JERMAIN T/PRE CLI Accoun t#: [id number] Mnvaleria ic/Ord ering Site: [facility] PDI Orderi ng Physic mariama: DAISY KASPER PA-Andreina ___ CR Barium Swallo w W Video - - 4179 Report Status :Mary d CLINIC AL HISTOR [...] Date/T sania: 1246 Sign date/T sania: [address] (Central Scheduling Radiology) [address] [place], [address], 12/06/2023 14:58:16 12/06/19 24 12/06/2023 [place], modif ied kristina m sindy ow study No observ ation record ed. [address] Diagnosit Imaging Dept [address] [place], [address], 12/06/2023 14:58:19 Result Notes None recorded. Problems Name Problem SNOMED Code Status Onset Date Resolution Date Notes Provider Name and Address Organization Details Recorded Time Chronic tonsillit is 13913787 Active 2014 Tonsillit is, chronic; Note: Date Diagnosed : 06/19/2014 12:59 PM (474.00) Not Available [facility] 4 02:19:58 Chronic disease of tonsils AND/OR adenoids 55040546 Active 2014 Tonsillit h, NOS; Note: Date Diagnosed : 06/19/2014 12:59 PM (474.8) Not Available [facility] 4 02:20:07 Respirato ry finding 856991629 Active 2021 Feeling of foreign body in throat; Note: Date Diagnosed : 07/01/2021 2:58 PM (R09.89) Not Available [facility] 4 02:20:04 Cardiovas cular finding 559742828 Active 2021 Feeling of foreign body in throat; Note: Date Diagnosed : 07/01/2021 2:58 PM (R09.89) Not Available [facility] 4 02:20:04 Oropharyn geal dysphagia 22585462 Active 2021 Dysphagia , oropharyn geal phase; Note: Date Diagnosed : 07/01/2021 2:58 PM (R13.12) Not Available [facility] 4 02:19:15 Stomatiti s 44927793 Active 2021 Oral thrush; Note: Date Diagnosed : 07/01/2021 2:58 PM (B37.0) Not Available [facility] 4 02:20:11 Candidias is of mouth 17505721 Active 2021 Oral thrush; Note: Date Diagnosed : 07/01/2021 2:58 PM (B37.0) Not Available [facility] 4 02:20:11 Bilateral earache 809917748 Active 2023 Otalgia, bilateral ; Note: Date Diagnosed : 05/11/2023 5:01 PM (H92.03) Not Available [facility] 4 02:20:10 Abnormal auditory perceptio n 45388744 Active 2023 Shanita bauer [place] - [facility] 4 13:44:37 Bilateral tinnitus 80542851846 02 Active 2023 OKRY ARNOLD PA-C [address] [facility] [address], Roxanna garcia, [place], [address] , [facility] - [facility] 4 14:17:04 Dysphagia 92028151 Active 2023 KORY ARNOLD PA-C [address] [facility] [address], [place], [address] , [facility] 4 14:17:09 Problem Notes None recorded. Procedures Surgical History Date Name Laterality Status Provider Name and Address Organization Details Recorded Time 09/02/2023 Comp Audio with Tymps - 53925 & 48290 completed Shanita Tobin [place] - [facility] 09/02/2023 13:44:22 Imaging Results None recorded. Procedure Notes None recorded. Medical Equipment None Reported. Allergies Allergen ID Allergen Name Allergen Category Reaction Reaction Severity Criticality Documentation Date Start Date Code Code System Note Provider Name and Address Organization Details Recorded Time 40751 amoxicill in / clavulana te medicatio n other Not available Not available 06/21/2023 01353 RxNorm React ion: unkno wn, unspe cifie d;; Not Available [facility] 4 00:53:04 13985 clindamyc in hydrochlo ride medicatio n other Not available Not available 06/21/2023 92252 RxNorm React ion: unkno wn, unspe cifie d;; Not Available [facility] 4 00:53:08 83811 clarithro mycin medicatio n other Not available Not available 06/21/2023 05337 RxNorm React ion: unkno wn, unspe cifie d;; Not Available [facility] 4 00:53:12 Medications Name Sig Start Date [...] mg capsule 07/01 completed Medicati on ID: [id number] Du ration Value: 30 Brand Name: ziprasid one HCl Send Method: E-Prescr ibed Sub s Allowed: subs OK Speci al Instruct ion: TK 1 C PO Q NIGHT WITH FOOD. TAKE WITH GEODON 40 MG CAPSULE Medicati onGeneri cName: ziprasid one HCl Not Available Not Available Not Available clotrimaz ole 10 mg bree 1 bree 07/01 completed Medicati on ID: [id number] D uration Value: 7 Prescri bed By Name: Nathen oviedo M.D. Bra nd Name: clotrima zole Sen d Method: E-Prescr ibed Sub s Allowed: subs OK Medic ationGen ericName : clotrima zole Not Available Not Available Not Available buspirone 5 mg tablet 05/10 completed Medicati on ID: [id number] B rand Name: buspiron e Send Method: E-Prescr ibed Sub s Allowed: subs [place] Medic ationGen ericName : buspiron e Not Available Not Available Not Available clonidine HCl 0.1 mg tablet 05/10 completed Medicati on ID: [id number] B rand Name: clonidin e HCl Send [...] mg tablet 09/01 completed Medicati on ID: [id number] B rand Name: trazodon e Send Method: E-Prescr ibed Sub s Allowed: subs OK Medic ationGen ericName : trazodon e Medica tion ID: [id number] B rand Name: trazodon e Send Method: [...] mg tablet 05/10 completed Medicati on ID: [id number] B rand Name: meloxica m Send Method: E-Prescr ibed Sub s Allowed: subs OK Medic ationGen ericName : meloxica m Not Available Not Available Not Available ondansetr on HCl 4 mg tablet TAKE 1 TABLET BY MOUTH AT BEDTIME NEEDED FOR NAUSEA 09/01 completed Not Available Not Available Not Available rizatript an 10 mg tablet 05/10 completed Medicati on ID: 415404 B rand Name: rizatrip valladares Send Method: E-Prescr ibed Sub s Allowed: subs OK Medic ationGen ericName : rizatrip valladares Not Available Not Available Not Available quetiapin e 200 mg tablet TAKE 1 TABLET BY MOUTH AT BEDTIME 09/01 completed Not Available Not Available Not Available clonazepa m 1 mg tablet 05/10 completed Medicati on ID: [id number] B rand Name: clonazep am Send Method: [...] mg tablet 07/01 completed Medicati on ID: [id number] Du ration Value: 90 Brand Name: allopuri [...] mg tablet 09/01 completed Medicati on ID: [id number] B rand Name: lamotrig ine Send Method: E-Prescr ibed Sub s Allowed: subs OK Medic ationGen ericName : lamotrig ine Medi cation ID: [id number] B rand Name: lamotrig ine Send Method: E-Prescr ibed Sub s Allowed: subs OK Medic ationGen ericName : lamotrig ine Not Available Not Available Not Available mycopheno late mofetil 500 mg tablet 05/10 completed Medicati on ID: [id number] B rand Name: mycophen olate mofetil Send [...] eye drops 09/01 completed Medicati on ID: [id number] B rand Name: neomycin -polymyx in B-dexame th Send Method: E-Prescr ibed Sub s Allowed: subs OK Medic ationGen ericName : neomycin -polymyx in B-dexame th Medic ation ID: [id number] B rand Name: neomycin -polymyx in B-dexame [...] spray aerosol 05/10 completed Medicati on ID: [id number] B rand Name: triamcin olone acetonid e Send Method: E-Prescr ibed Sub s Allowed: subs OK Speci al Instruct ion: USE 2 SPRAYS IN EACH NOSTRIL DAILY Me dication GenericN estrada: triamcin olone acetonid e Not Available Not Available Not Available levothyro xine 150 mcg tablet 07/01 completed Medicati on ID: [id number] Du ration Value: 30 Brand Name: levothyr [...] inhalatio n 07/01 completed Medicati on ID: 06962 Du ration Value: 30 Brand Name: Advair [...] elayed release 09/01 completed Medicati on ID: 689353 B rand Name: omeprazo le Send Method: E-Prescr ibed Sub s Allowed: subs OK Medic ationGen ericName : omeprazo le Medic ation ID: [id number] B rand Name: omeprazo le Send Method: E-Prescr ibed Sub s Allowed: subs OK Medic ationGen ericName : omeprazo le Not Available Not Available Not Available folic acid 1 mg tablet 07/01 completed Medicati on ID: 85433 Du ration Value: 30 Brand Name: folic [...] mg capsule 07/01 completed Medicati on ID: 85926 Du ration Value: 30 Brand Name: ziprasid [...] mg tablet 05/10 completed Medicati on ID: 811329 B rand Name: trihexyp henidyl Send Method: [...] n capsules 07/01 completed Medicati on ID: 91032 Du ration Value: 30 Brand Name: Spiriva [...] mg capsule 07/01 completed Medicati on ID: 04156 Du ration Value: 30 Brand Name: Lyrica [...] mg tablet 07/01 completed Medicati on ID: 73990 Du ration Value: 30 Brand Name: quetiapi [...] mg tablet 07/01 completed Medicati on ID: 01399 Du ration Value: 30 Brand Name: carisopr [...] tended release 07/01 [place] ID: 02081 Du ration Value: 30 Brand Name: Glumetza [...] mg capsule 05/10 completed Medicati on ID: [id number] B rand Name: Vraylar Send Method: E-Prescr ibed Sub s Allowed: subs OK Medic ationGen ericName : Vraylar Not Available Not Available Not Available Gammaplex 10 % intraveno us solution active Not Available Not Available Not Available Trelegy Ellipta 100 mcg-62.5 mcg-25 mcg powder for inhalatio n 05/10 completed Medicati on ID: 246348 B rand Name: Trelegy Ellipta Send Method: E-Prescr ibed Sub s Allowed: subs OK Medic ationGen ericName : Trelegy Ellipta Not Available Not Available Not Available Aimovig Autoinjec tor 70 mg/mL subcutane ous auto-inje ctor 09/01 completed Medicati on ID: [id number] B rand Name: Aimovig Autoinje ctor Sen d Method: E-Prescr ibed Sub s Allowed: subs OK Medic ationGen ericName : Aimovig Autoinje ctor Med ication ID: [id number] B rand Name: Aimovig Autoinje ctor Sen [...] Diagnosis SNOMED-CT Code Diagnosis ICD10 Code Diagnosis IMO Codes Diagnosis Note 9753 KORY ARNOLD PA-C [facility] [address] [address] 09/02/2023 13:10:52 09/02/2023 14:04:21 Abnormal auditory perception 08216272 H93.299 Audiologic al evaluation results: Right ear: Normal hearing with excellent word recognitio n. Left ear: Normal hearing with excellent word recognitio n. Tympanomet ry: Right Ear:Type A Left Ear:Type A Bilateral tinnitus 01923 62847 102 H93.13 Dysphagia 89502558 R13.1 0 Health Concerns Section Related Observation LastModified by Organization Detai ls LastModified Time None Recorded Concern Status LastModified by Organization Details LastModified Time None Recorded Advance Directives Directive None Recorded Payers Insurance Date Sequence Insurance Name Policy Number Policy Pagan Covered Member ID Pagan Member ID Guarantor Name 09/02/2023 1 [facility] - DOS ON OR AFTER 2022 - ONE CARE (MEDICARE REPLACEMENT/ADV ANTAGE - HMO) Kiah Ortiz [id number] Kiah Ortiz Notes Date Note Type Note Provider Name and Address Organization Details Recorded Time 09/02/2023 text/html ROS as noted in the HPI 48-year-old female with complex medical problems presents for reevaluation. [...] dysphagia. She is being followed by an instrument operator regularly for this issue. Has serial ultrasounds every 6 months. Biopsy cannot be obtained as it is calcified. 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 She was also complaining of bilateral tinnitus which comes and goes. No significant sensation of hearing loss. NATHEN CHAPMAN MD [address] [place] [address], [phone], [facility] - [facility] 09/02/2023 16:16:19 OBGyn Episode No OBEpisode recorded.
--- OUTSIDE RECORDS SUMMARY | 2024-12-14 15:45 | XMS_ITS | Encounter Summary ---
Author Organization [facility] Address [address] [place] [address] Care Team Providers Care Glaucoma Specialist Name Role Phone Elizabeth Thrasher MD Primary Care Provider [phone] Reason for Referral * Consultation (Routine) - Pending Review Specialty Diagnoses / Procedures Referred By Janine mcintosh Referred To Contact Allergy Diagnoses Allergic rhinitis due to pollen, unspecified seasonality Elizabeth Thrasher MD [address] [place] [address] Phone: tel: fax: [address] [address] Phone: tel: fax: Referral ID Status Reason Start Date Expiration Date Visits Requested Visits Authorized [id number] Pending Review Specialty Services Required 09/20/2024 09/20/2025 1 1 Reason for Visit * Reason Onset Date Comments Med Refill 09/20/2024 Cough 09/20/2024 Nasal Congestion 09/20/2024 Encounter Details Date Type Department Care Team (Late st Contact Info) Description 09/20/2024 Nurse Triage Adult Medicine [facility] [address] [place], [place] [phone] Elizabeth Thrasher MD [address] [place], [place] Social History Tobacco Use Types Packs/Day [...] for your loved ones. For example, children's ministry director or elderly care for an older adult? [...] Entry Date Author No 02/18/2024 9:37 PM EST Mchugh, R terrell, RN documented in this encounter Ordered Prescriptions Prescription Sig Dispense Quantity Refills Last Filled Start Date End Date azelastine (ASTELIN) 137 mcg (0.1 %) nasal spray Administer 2 sprays into each nostril 2 (two) times a day. Use in each nostril as directed 1 each 3 09/20/2024 documented in this encounter Progress Notes * Clari Rees RN - 09/20/2024 10:55 AM EDT Pt was seen at [address] [place] [address] on 09/14/24; IMPRESSION: Bacterial URI PLAN: The patient's PMH, problem list and medications were reviewed in reference to the above diagnosis/diagnoses. Z-Eyad sent to pharmacy patient unable to tolerate prednisone Continue albuterol updrafts Maintain adequate hydration She reports improvement in her symptoms. She is suffering from nasal discharge and post nasal drip. She states the nasal discharge is clear. She is also requesting a new referral to an pulmonologist intensivist as her current pulmonologist intensivist does not accept her insurance. * Namita Marcella - 09/20/2024 10:37 AM EDT Patient call requires triage: Symptoms patient is presenting: Patient is in need of a refill for azelastine nasal spray 2 sprays in each nostril 2x daily. Statesthis is normally prescribed by the pulmonologist intensivist she was seeing but can't call her because she doesn't accept her insurance and doesn't have a new pulmonologist intensivist yet. Patient states she isn't feeling well andthat is why she is asking Dr Thrasher for this refill. She was seen by on 09/14 for cough and congestion. I wasn't sure if this should be triaged or go to Dr Thrasher ?? How long has patient had these symptoms?: past week For ALL patients calling to schedule any appointment (routine, sick visit, follow up, consult, etc.) in the outpatient setting please ask the following questions: Do you have fever of higher than 101, sore throat with difficulty swallowing or severe shortness ofbreath? no If YES to any of these above symptoms, send a message to triage and do not book. Red dot. If no, an audio or video visit should be booked. Have you had close contact with someone with Coronavirus in the last 14 days? no Have you traveled abroad? no Have you traveled recently to another state outside of [place], [place], [place], [place], [place], [place], [place]? no o If yes, did you quarantine for 14 days or have a negative covid test? no If yes to any of the above, patient is not to be scheduled in office until after 14 day quarantine or negative covid test. If pain or injury related was it due to an accident at work or from a motor vehicle accident? If yes, date of accident/Injury: No If yes, gather 3rd republican insurance information Third Green Party Information: not applicable PCP: Elizabeth Thrasher MD Payor: [facility] MEDICARE / Plan: [facility] ONE CARE / Product Type: *No Product type* / documented in this encounter Plan of Treatment Upcoming Encounters Date Type Department Care Team (Late st Contact Info) Description 12/31/2024 11:30 AM EST Office Visit Adult Medicine [address] [phone] Catalina Velez PA [address] [place] [address] 01/23/2025 2:45 PM EST Office Visit Pulmonology [address] [place] [phone] Nanci Garner NP [address] [place] [address] 01/25/2025 1:30 PM EST Office Visit Endocrinology [address] [phone] Cely Rosen PA [address] [place] [address] 02/22/2025 10:00 AM EST Consult Adult Medicine [place] - [address] [phone] Elizabeth Thrasher MD [address] [place] [address] 03/05/2025 10:30 AM EST Consult Urogynecolog[address] [phone] Soha Win MD [address] [address] 03/18/2025 1:15 PM EST Hospital Encounter [facility] [place] [address] [place] [phone] Soha Win MD [address] [address] 03/18/2025 1:15 PM EST - 03/18/2025 3:15 PM EST Surgery [facility] OR [address] [place] [phone] Soha Win MD [address] [address] IMPLANTATION STIMULATOR BLADDER STAGE 1 [52219 (CPT )] 04/08/2025 11:45 AM EST Office Visit Urogynecology [address] [phone] Soha Win MD [address] [address] Scheduled Procedures Name Priority Associated Diagnoses Date/Ti me IMPLANTATION STIMULATOR BLADDER STAGE 1 Urge incontinence Urgency of urination 03/18/2025 1:15 PM EST IMPLANTATION STIMULATOR BLADDER STAGE 2 Urge incontinence Urgency of urination 03/18/2025 1:15 PM EST Scheduled Referrals Name Type Priority Associated Diagnoses Order Schedule Ambulatory referral to Allergy Outpatient Referral Routine Allergic rhinitis due to pollen, unspecified seasonality 1 Occurrences starting 09/20/2024 until 09/20/2025 documented as of this encounter Visit Diagnoses Diagnosis Allergic rhinitis due to pollen, unspecified seasonality- Primary Urge incontinence Urgency of urination documented in this encounter Discontinued Medications Medication Sig Discontinue Reason Start Date End Da te azelastine (ASTELIN) 137 mcg (0.1 %) nasal spray USE 2 SPRAYS IN EACH NOSTRIL TWICE DAILY Reorder 12/10/2022 09/20/2024 documented as of this encounter Care Teams Glaucoma Specialist Relationship Specialty Start Date End Date Elizabeth Thrasher MD [address] [place] [address] PCP - General Internal Medicine 01/27/15 documented as of this encounter
--- OUTSIDE RECORDS SUMMARY | 2024-12-14 15:45 | XMS_ITS | Encounter Summary ---
Author Organization [facility] Address [address] [place] [address] Care Team Providers Care Life Guard Name Role Phone Elizabeth Thrasher MD Primary Care Provider [phone] Encounter Details Date Type Department Care Team ([facility] st Contact Info) Description 11/13/2024 Telephone Pulmonology [facility] [address] [place] [address] Nanci Garner, ABDULLAHI [address] [place] [phone] Social History Tobacco Use Types Packs/Day Years [...] for your loved ones. For example, child nutrition assistant or elderly care for an older adult? [...] 11:30 AM EST Office Visit Adult Medicine [address] [phone] Catalina Velez PA [address] [place] [address] 01/23/2025 2:45 PM EST Office Visit Pulmonology [facility] [address] [place] [address] Nanci Garner NP [address] [place] [phone] 01/25/2025 1:30 PM EST Office Visit Endocrinology [address] [phone] Cely Rosen PA [address] [place] [address] 02/22/2025 10:00 AM EST Consult Adult Medicine [address] [phone] Elizabeth Thrasher MD [address] [place] [address] 03/05/2025 10:30 AM EST Consult Urogynecolog[address] [phone] Soha Win MD [address] [address] 03/18/2025 1:15 PM EST Hospital Encounter [facility] [place] [address] [place] [phone] Soha Win MD [address] [address] 03/18/2025 1:15 PM EST - 03/18/2025 3:15 PM EST Surgery [facility] [place] [address] [place] [phone] Soha Win MD [address] [address] IMPLANTATION STIMULATOR BLADDER STAGE 1 [89016 (CPT )] 04/08/2025 11:45 AM EST Office Visit Urogynecolog[address] [phone] Soha Win MD [address] [address] Scheduled Procedures Name Priority Associated Diagnoses Date/Ti me IMPLANTATION STIMULATOR BLADDER STAGE 1 Urge incontinence Urgency of urination 03/18/2025 1:15 PM EST IMPLANTATION STIMULATOR BLADDER STAGE 2 Urge incontinence Urgency of urination 03/18/2025 1:15 PM EST documented as of this encounter Visit Diagnoses Not on filedocumented in this encounter Care Teams Life Guard Relationship Specialty Start Date End Date Elizabeth Thrasher MD [address] [place] [address] PCP - General Internal Medicine 01/27/15 documented as of this encounter
--- OUTSIDE RECORDS SUMMARY | 2024-12-14 15:45 | XMS_ITS | Encounter Summary ---
Author Organization [facility] Address [address] [place] [address] Care Team Providers Care Tax Record Clerk Name Role Phone Elizabeth Thrasher MD Primary Care Provider [phone] Encounter Details Date Type Department Care Team (Late st Contact Info) Description 11/09/2024 Results Follow-Up Endocrinology - [id number] [place] [phone] Cely Rosen PA [address] [place] [address] Social History Tobacco Use Types Packs/Day Years [...] your loved ones. For example, child care nurse or elderly care for an older adult? [...] 11:30 AM EST Office Visit Adult Medicine [address] [phone] Catalina Velez PA [address] [place] [address] 01/23/2025 2:45 PM EST Office Visit Pulmonology [facility] [address] [facility] [address] [place] [address] Nanci Garner NP [address] [place] [phone] 01/25/2025 1:30 PM EST Office Visit Endocrinology [address] [phone] Cely Rosen PA [address] [place] [address] 02/22/2025 10:00 AM EST Consult Adult Medicine [address] [phone] Elizabeth Thrasher MD [address] [place] [address] 03/05/2025 10:30 AM EST Consult Urogynecolog[address] [phone] Soha Win MD [address] [address] 03/18/2025 1:15 PM EST Hospital Encounter [facility] [place] [address] [place] [phone] Soha Win MD [address] [address] 03/18/2025 1:15 PM EST - 03/18/2025 3:15 PM EST Surgery [facility] OR [address] [place] [phone] Soha Win MD [address] [address] IMPLANTATION STIMULATOR BLADDER STAGE 1 [[id number] (CPT )] 04/08/2025 11:45 AM EST Office Visit Urogynecolog[address] [phone] Soha Win MD [address] [address] Scheduled Procedures Name Priority Associated Diagnoses Date/Ti me IMPLANTATION STIMULATOR BLADDER STAGE 1 Urge incontinence Urgency of urination 03/18/2025 1:15 PM EST IMPLANTATION STIMULATOR BLADDER STAGE 2 Urge incontinence Urgency of urination 03/18/2025 1:15 PM EST documented as of this encounter Visit Diagnoses Not on filedocumented in this encounter Care Teams Tax Record Clerk Relationship Specialty Start Date End Date lEizabeth Thrasher MD [address] [place] [address] PCP - General Internal Medicine 01/27/15 documented as of this encounter
--- OUTSIDE RECORDS SUMMARY | 2024-12-14 15:45 | XMS_ITS | Data Portability ---
Author Organization [facility] Address [address] [place] [phone] Care Team Providers Care Sheet Metal Operator Name Role Phone TRICIAROCIOE Primary Care Provider HIM CCA OTHER Assessment No assessment recorded. Plan of Treatment Reminders Order Date Submit Date Provider Last Modified By Organization Details Last Modified Time Details Appointments None recorded. Lab BMP, serum or plasma 2024 025 [facility], [address] [place] [address], [phone] 19:37:47 Referral None recorded. Procedures None recorded. Surgeries None recorded. Imaging None recorded. Medication Orders furosemide 10 mg/mL injection solution 2024 025 [facility] #81707, [address] [place], [id number], 5 18:52:03 potassium chloride 20 mEq oral packet 2024 025 [facility] #93230, [address], [id number], 5 18:52:03 potassium chloride ER 20 mEq tablet,exte nded release 2024 025 [facility] #14380, [address], [id number], 5 18:52:03 cephalexin 500 mg capsule 2024 025 [facility]00468, [address], [id number], 18:52:09 cephalexin 500 mg capsule 2024 025 [facility] #79101, [address] [place], [place], [id number], 5 18:52:03 Lasix 20 mg tablet 2024 025 [facility] #56274, [address] [place], [place], [id number], 18:52:09 Patient TargetsNo targets recorded. Patient InstructionsNo instructions recorded. Reason for Referral None Reported. Results Created Date Observation Date Name Description Value Unit Range Abnormal Flag Note LastModifiedBy Organization Detail LastModifiedTime Result Notes None recorded. Medical Equipment None Reported. Allergies Allergen ID Allergen Name Allergen Category Reaction Reaction Severity Criticality Documentation Date Start Date Code Code System Note Provider Name and Address Organization Details Recorded Time 66224 doxycycli ne Not available abdominal pain Not available Not available 08/03/2024 3640 RxNofeliberto FAN MD [address] [place] [address],[address], [place], [phone], [facility] - [facility] 18:48:52 [address]4046 Augmentin medicatio n diarrhea Not available Not available 08/03/2024 93102 2 RxNofeliberto FAN MD [address] [place] [address],[address], [place], [phone], [place] - [facility] 18:49:04 [address]4794 zinc environme nt,medica tion anaphylax is Not available Not available 08/03/2024 26843 RxNofeliberto FAN MD [address] [place] [address],[address], [place], [phone], [place] - [facility] 18:49:13 62531 Macrobid medicatio n abdominal pain Not available Not available 08/03/2024 79752 1 RxNofeliberto FAN MD [address] [place] [address],[address], [place], [phone], [place] - [facility] [employer] 18:49:35 [address]378 clindamyc in Not available diarrhea Not available Not available 08/03/2024 2582 RxNorm LALY FAN MD [address] [facility],[address], [place], [phone], [place] DONNA GARCIA 18:49:50 Medications Name Sig Start Date Stop Date Status Note LastModified by Organization Details LastModified Time quetiapine 25 mg tablet TAKE 1 TABLET BY MOUTH TWICE DAILY NEEDED active Not Available Not Available No t Available celecoxib 200 mg capsule TAKE 1 CAPSULE BY MOUTH EVERY DAY. START TODAY active Not Available Not Available No t Available perphenazine 2 mg tablet TAKE 1 TABLET BY MOUTH TWICE DAILY active Not Available Not Available No t Available lamotrigine 200 mg tablet TAKE 1 TABLET BY MOUTH TWICE DAILY active Not Available Not Available No t Available quetiapine 300 mg tablet TAKE 1 TABLET BY MOUTH AT BEDTIME active Not Available Not Available No t Available erythromycin 500 mg tablet TAKE 1 TABLET BY MOUTH TWICE DAILY active Not Available Not Available No t Available albuterol sulfate 2.5 mg/3 mL (0.083 %) solution for nebulization INHALE 3MLK BY MOUTH INTO THE LUNGS VIA NEBULIZER EVERY 4 HOURS NEEDED FOR WHEEZING OR SHORTNESS OF BREATH active Not Available Not Available No t Available loperamide 2 mg capsule TAKE 1 CAPSULE BY MOUTH FOUR TIMES DAILY NEEDED FOR DIARRHEA active Not Available Not Available No t Available cetirizine 10 mg tablet TAKE 1 TABLET BY MOUTH EVERY DAY active Not Available Not Available No t Available miconazole nitrate 2 % topical cream APPLY TOPICALLY TO AFFCTED AREA ON THE SKIN TWICE DAILY active Not Available Not Available No t Available ofloxacin 0.3 % eye drops INSTILL 1 DROP IN LEFT EYE TWICE DAILY active Not Available Not Available Not Available fluconazole 150 mg tablet TAKE 1 TABLET BY MOUTH TODAY AND 1 TABLET IN 5 DAYS active Not Available Not Available No t Available hydrocodone 5 mg-acetamino phen 325 mg tablet TAKE 1 TABLET BY MOUTH TWICE DAILY NEEDED FOR PAIN active Not Available Not Available No t Available chlorpromazi ne 100 mg tablet TAKE 3 TABLETS BY MOUTH EVERY NIGHT AT BEDTIME active Not Available Not Available No t Available FreeStyle Lancets 28 gauge USE DIRECTED TO CHECK BLOOD SUGAR THREE TIMES DAILY active Not Available Not Available Not Available ondansetron HCl 4 mg tablet TAKE 1 TABLET BY MOUTH EVERY 8 HOURS NEEDED FOR NAUSEA active Not Available Not Available No t Available spironolacto ne 100 mg tablet TAKE 1 TABLET BY MOUTH DAILY active Not Available Not Available Not Available quetiapine 200 mg tablet TAKE 1 TABLET BY MOUTH AT BEDTIME active Not Available Not Available No t Available diphenoxylat e-atropine 2.5 mg-0.025 mg tablet TAKE 1 TABLET BY MOUTH TWICE DAILY NEEDED FOR DIARRHEA active Not Available Not Available No t Available lithium carbonate ER 300 mg tablet,exten ded release TAKE 1 TABLET BY MOUTH DAILY active Not Available Not Available Not Available azathioprine 50 mg tablet TAKE 3 TABLETS BY MOUTH DAILY active Not Available Not Available Not Available sulfamethoxa zole 800 mg-trimethop rim 160 mg tablet TAKE 1 TABLET BY MOUTH TWICE DAILY FOR 10 DAYS active Not Available Not Available No t Available omeprazole 40 mg capsule,claudine yed release TAKE 1 CAPSULE BY MOUTH TWICE DAILY active Not Available Not Available No t Available quetiapine 100 mg tablet TAKE 1 TABLET BY MOUTH AT BEDTIME active Not Available Not Available No t Available lithium carbonate ER 450 mg tablet,exten ded release TAKE 1 TABLET BY MOUTH AT BEDTIME active Not Available Not Available No t Available chlorpromazi ne 10 mg tablet TAKE 1 TABLET BY MOUTH TWICE DAILY NEEDED active Not Available Not Available No t Available cefadroxil 500 mg capsule TAKE 1 CAPSULE BY MOUTH EVERY 12 HOURS FOR 14 DAYS active Not Available Not Available Not Available clindamycin 1 % topical gel APPLY TO GROIN AND BUTTOKS TWICE DAILY active Not Available Not Available Not Available aspirin 325 mg tablet,delay ed release TAKE 1 TABLET BY MOUTH TWO TIMES A DAY active Not Available Not Available Not Available gabapentin 800 mg tablet TAKE 1 TABLET BY MOUTH THREE TIMES DAILY active Not Available Not Available Not Available baclofen 10 mg tablet TAKE 1 TABLET BY MOUTH THREE TIMES DAILY active Not Available Not Available Not Available doxycycline monohydrate 100 mg capsule TAKE 1 CAPSULE BY MOUTH TWICE DAILY active Not Available Not Available No t Available insulin aspart U-100 100 unit/mL subcutaneous solution INJECT 182 UNITS DIRECTED DAILY WITH INSULIN PUMP. active Not Available Not Available No t Available cephalexin 500 mg capsule TAKE 1 CAPSULE BY MOUTH EVERY 6 HOURS FOR 7 DAYS active Not Available Not Available No t Available pantoprazole 40 mg tablet,delay ed release TAKE 1 TABLET BY MOUTH TWICE DAILY ON EMPTY STOMACH active Not Available Not Available No t Available chlorpromazi ne 25 mg tablet TAKE 1 TABLET BY MOUTH DAILY. CHLORPORMAZ INE 25 MG BY MOUTH DAILY AND 75 MG EVERY NIGHT AT BEDTIME active Not Available Not Available No t Available docusate sodium 100 mg capsule TAKE 1 CAPSULE BY MOUTH TWO TIMES A DAY active Not Available Not Available Not Available montelukast 10 mg tablet TAKE 1 TABLET BY MOUTH AT BEDTIME active Not Available Not Available No t Available hydroxyzine HCl 25 mg tablet TAKE 1 TO 2 TABLETS BY MOUTH EVERY NIGHT NEEDED active Not Available Not Available No t Available ammonium lactate 12 % topical cream APPLY TOPICALLY TO FEET TWICE DAILY active Not Available Not Available Not Available lisinopril 5 mg tablet TAKE 1 TABLET BY MOUTH DAILY active Not Available Not Available Not Available mupirocin 2 % topical ointment APPLY TOPCIALLY TO WOUND EVERY DAY active Not Available Not Available No t Available furosemide 20 mg tablet TAKE 1 TABLET BY MOUTH EVERY DAY FOR 3 DAYS active Not Available Not Available No t Available ketoconazole 2 % topical cream APPLY TOPICALLY TO FEET TWICE DAILY NEEDED active Not Available Not Available No t Available hydromorphon e 4 mg tablet TAKE 1 TABLET BY MOUTH EVERY 4 HOURS NEEDED FOR PAIN. active Not Available Not Available No t Available chlorpromazi ne 50 mg tablet TAKE 1 TABLET BY MOUTH THREE TIMES DAILY. TOTAL DAILY DOSE CHLORPROMAZ INE 50 MG BY MOUTH 2 TIMES DAILY AND 350 MG BY MOUTH EVERY NIGHT AT BEDTIME active Not Available Not Available N ot Available spironolacto ne 50 mg tablet TAKE 1 TABLET BY MOUTH AT BEDTIME active Not Available Not Available No t Available Ventolin HFA 90 mcg/actuatio n aerosol inhaler INHALE 2 PUFFS INTO THE LUNGS EVERY 6 HOURS NEEDED FOR COUGH OR WHEEZING OR SHORTNESS OF BREATH OR CHEST TIGHTNESS active Not Available Not Available No t Available buspirone 15 mg tablet TAKE 1 TABLET BY MOUTH THREE TIMES DAILY active Not Available Not Available Not Available Novolog FlexPen U-100 Insulin aspart 100 unit/mL (3 mL) subcutaneous INJECT 3 TIMES A DAY WITH MEALS PER SLIDING SCALE active Not Available Not Available No t Available Antacid Regular Strength 200 mg-200 mg-20 mg/5 mL oral suspension TAKE 15 ML BY MOUTH FOUR TIMES DAILY NEEDED active Not Available Not Available No t Available Gas Relief Extra Strength 125 mg chewable tablet CHEW AND SWALLOW 1 TABLET BY MOUTH EVERY 6 HOURS NEEDED FOR FLATULENCE active Not Available Not Available N ot Available ramelteon 8 mg tablet TAKE 1 TABLET BY MOUTH EVERY NIGHT AT BEDTIME NEEDED active Not Available Not Available No t Available Advair HFA 230 mcg-21 mcg/actuatio n aerosol inhaler INHALE 2 PUFFS INTO THE LUNGS TWICE DAILY active Not Available Not Available Not Available quetiapine 400 mg tablet TAKE 1 TABLET BY MOUTH AT BEDTIME active Not Available Not Available No t Available FreeStyle Lite Meter kit USE TO CHECK BLOOD SUGAR DAILY active Not Available Not Available Not Available FreeStyle Lite Strips USE TO CHECK BLOOD SUGAR THREE TIMES DAILY active Not Available Not Available Not Available Vyvanse 60 mg capsule TAKE 1 CAPSULE BY MOUTH DAILY active Not Available Not Available Not Available cholecalcife rol (vitamin D3) 50 mcg (2,000 unit) capsule TAKE 1 CAPSULE BY MOUTH EVERY DAY active Not Available Not Available No t Available Stimulant Laxative Plus 8.6 mg-50 mg tablet TAKE 2 TABLETS BY MOUTH AT BEDTIME active Not Available Not Available No t Available OxyContin 20 mg tablet,crush resistant,ex tended release TAKE 1 TABLET BY MOUTH TWICE DAILY active Not Available Not Available No t Available insulin degludec (U-200) 200 unit/mL (3 mL) subcutaneous pen INJECT 50 UNITS INTO THE SKIN EVERY DAY active Not Available Not Available No t Available clindamycin 1 % topical gel, once daily APPLY TOPICALLY TO THE AFFECTED AREA THREE TIMES DAILY FOR 2 WEEKS active Not Available Not Available Not Available Humira(CF) Pen 80 mg/0.8 mL subcutaneous kit INJECT 1 PEN SUBCUTANEOU SLY EVERY OTHER WEEK active Not Available Not Available N ot Available BD Michaelle 2nd Gen Pen Needle 32 gauge x USE DIRECTED 5 TIMES A DAY FOR INJECTIONS active Not Available Not Available N ot Available Baqsimi 3 mg/actuation nasal spray USE NASALLY DIRECTED active Not Available Not Available Not Available Caplyta 42 mg capsule TAKE 1 CAPSULE BY MOUTH EVERY NIGHT active Not Available Not Available No t Available Gvoke HypoPen 2-Pack 0.5 mg/0.1 mL subcutaneous auto-injecto r INJECT 1 DOSE INTO THE SKIN NEEDED active Not Available Not Available No t Available Vitals Date Recorded Body height Oxygen saturation Oxygen saturation in Arterial blood by Pulse oximetry Respiratory rate Body temperature Heart rate Body weight Systolic And Diastolic Provider Name and Address Organization Details Last Updated DateTime 5 167.64 cm 95 % 95 % 14 /min 98 [degF] 78 /min 190662 g 118/78 mm[Hg] Not Available [facility] 18:22:36 Social History None recorded. Functional Status None recorded. Mental Status None recorded. Family History Nothing Reported. Medical History No medical history recorded. Gynecological HistoryNo gynecological history recorded. Obstetrics History GPAL:G 0 P 0 0 0 0 Past Encounters Encounter ID Performer Location Encounter Start Date Encounter Closed Date Diagnosis/Indication Diagnosis SNOMED-CT Code Diagnosis ICD10 Code Diagnosis IMO Codes Diagnosis Note [id number] LALY FAN MD [facility] ED Medical [address] [phone] 08/03/2024 18:22:31 08/04/2024 21:15:51 Cellulitis of lower limb 021175015 L03.119 [id number] Evaluation in the field was performed by my regional operations manager colleague, as noted above, I provided real-time direction and supervisio n for this visit. The evaluation revealed 49-year-ol d female with a history of type 2 diabetes mellitus, hypertensi on, asthma, bipolar disorder, and PTSD, presenting with a 7-day history of rash and swelling of the lower legs. She reports burning, itching, and mild tenderness , along with reduced mobility due to swelling. She denies any prior history of lower extremity edema, diuretic use, congestive heart failure, or cellulitis . She has not received antibiotic s for her legs previously .She denies shortness of breath, chest pain, weakness, dizziness, nausea, vomiting, diarrhea, fever, chills, dysuria, or any other systemic symptoms. Vital Signs:BP: 118/78 HR: 78 RR: 14 SpO2: 95% on room air Temp: 98.0 FPhysical Exam:Patie nt is alert and oriented, in no acute distress. Lungs clear to auscultati on bilaterall y without increased work of breathing. Abdomen soft and non-tender .Lower extremitie s with circumfere ntial erythema over both shins, warm to the touch, and slightly tender to palpation. +2 pitting edema noted in bilateral legs/ feet.BMP: Electrolyt es within normal limits. BUN: 8, Creatinine : 0.57Hemogl obin: 10.8 g/dL, Hematocrit : 32%Allergi es: Clindamyci n, doxycyclin e, Augmentin, and Macrobid (all cause GI upset) .Impressio n:Bilatera l lower extremity swelling with possible cellulitis , given warmth and tenderness on exam. While bilateral cellulitis is less common, stasis and dependent edema may predispose to infection. No evidence of purulence. Streptococ uriah infection is considered the most likely pathogen. Plan:Furos emide 20 mg IV administer ed in clinic (patient is Lasix-naiv e)Furosemi de 20 mg PO daily x3 days prescribed Potassium chloride 40 mEq administer ed to counter anticipate d potassium lossCephal exin 500 mg QID x7 days prescribed for suspected streptococ uriah cellulitis Advised to elevate lower extremitie s as toleratedE ducated that streptococ uriah cellulitis may worsen before improving, with symptom improvemen t expected around day 3 4 of antibiotic sAdvised to follow up with PCP on Tuesday for electrolyt e recheck; if not possible, patient may call us for a repeat evaluation Red flag symptoms reviewed, including: worsening redness, fever, chills, spreading rash, or signs of systemic illness Primary care, considerlo ng-term edema management and compressio n therapy once acute inflammati on resolvesDi sposition: We discussed the diagnostic uncertaint y of home visits and the risk associated with this. In this case, the patient and I felt this to be an acceptable and reasonable amount of risk given the benefit of avoiding an ED visit. We discussed the need to seek care urgently/e mergently in the setting of any new or worsening serious symptoms, particular lyworsenin g redness, fever, chills, spreading rash, or signs of systemic illness, SOB, CP Health Concerns Section Related Observation LastModified by Organization Detai ls LastModified Time None Recorded Concern Status LastModified by Organization Details LastModified Time None Recorded Advance Directives Directive None Recorded Payers Insurance Date Sequence Insurance Name Policy Number Policy Pagan Covered Member ID Pagan Member ID Guarantor Name 08/03/2024 1 [facility] - DOS ON OR AFTER 2022 - DUAL ELIGIBLE - ALF OPTIONS AND ONE CARE (MEDICARE REPLACEMENT/ADV ANTAGE - HMO) Kiah Ortiz [id number] Kiah Ortiz Notes Date Note Type Note Provider Name and Address Organization Details Recorded Time 08/03/2024 text/html ROS as noted in the HPI CRC Nurse Triage Notes (Whit Morrow): Reason For Request: Pt reporting swelling of both lower extremities, redness creeping up the calves, warm to the touch>overall worse with the right leg Patient Reports: History of cellulitis, isolated redness noted Denies: Farnsworth Flash, circumferential farnsworth Farnsworth reported with black tissue to the area Open skin area after a fall with uncontrolled bleeding Abscess/infection with streaking noted, presence of fever or without Chief Complaints: Extremity Swelling, Extremity Pain PMH: Diabetes Mellitus Type 2, Hypertension, Asthma, Bipolar Disorder, Post-Traumatic Stress Disorder (PTSD) PMH Reviewed at 08/03/2024: Allergies Reviewed at 08/03/2024:10 Comments: 49 y.o female complains of Extremity Swelling, Extremity Pain Additional PMH- diabetic kidney disease and CDIP Patient reporting a week of BLE edema, and it is worsening, especially on her right foot. Patient with redness, swelling, pain and warmth to BLEs, history of cellulitis. Per [facility] edema is 3-4+ pitting. She is having pain with ambulation. Legs are shiny and taught, denies any weeping, no blisters or dryness. Patient would like to be evaluated. I provided information on the mobile health provider response time and advised the patient and/or caregiver to monitor reported signs and symptoms. I discussed the warning signs of when to seek emergency care. Display Department Manager Organization Information for Jimbo Ingram [employer] Legal Name: [facility] Transportation Address: [address] [place] [address], [place] [facility], Inside Tester: Antoine Khanna MD CLIA No.: [id number] Display Department Manager POC Test Results from Juan [facility]bo [employer] (18:39:40) pH: 7.463 pH units pCO2: 39.6 mmHg pO2: 64 mmHg Na: 141 mmol/L K: 3.7 mmol/L iCa: 1.28 mmol/L Cl: 102 mmol/L TCO2: 26.8 mEq/L Hct: 32 % Hb: 10.8 g/dL Glu: 164 mg/dL Lac: 1.70 mmol/L Cr: 0.57 mg/dL BUN: 8 mg/dL A mmol/L HCO3: 28.3 mmol/L ..................... ..................... ..................... ..................... ..................... ..................... ............... Display Department Manager Note From Jimbo Ingram: Patient alert and oriented, complains of rash and swelling to lower legs times seven days. Patient reports no history of edema or use of diuretics or CHF.. Patient reports no history of cellulitis or use of antibiotics for legs. Patient reports burning [...] Patient demonstrates understanding of care and plan. [facility] Lab Orders: BMP, serum or plasma: Performed [facility] Medication Orders: furosemide 10 mg/mL injection solution: Administered potassium chloride 20 mEq oral packet: Administered potassium chloride ER 20 mEq tablet,extended release: Administered cephalexin 500 mg capsule: Administered ..................... ..................... ..................... ..................... ..................... ..................... ............... [facility] Consulted: Laly Fan ..................... ..................... ..................... ..................... ..................... ..................... ............... Disposition: Fulfilled LALY FAN MD [address] [facility], [place], [address], [place] [facility] 08/03/2024 19:33:14 OBGyn Episode No OBEpisode recorded.
== END 2024-12-14 13:42 | disposition home or self-care (01) ==
LOC: HO.LAB 13:41
PROVIDERS: PCP Internal Medicine; Visit Provider Nurse Practitioner Family
DX: Z13.1 Encounter for screening for diabetes mellitus (principal); G89.4 Chronic pain syndrome; G63 Polyneuropathy in diseases classified elsewhere
CPT/HCPCS: 36415; 83036